=== PATIENT | male | born 1955 | race Caucasian/White ===

== ENCOUNTER 2023-03-30 14:15 | Emergency (ER) | payer MEDICARE, SELFPAY ==
[2023-03-30 14:37] VITALS: BP 135/77
--- NOTE | 2023-03-30 15:34 | ED.GENMED ---
History of Present Illness
General
Chief Complaint: Musculo-Skeletal Complaint
Source: patient
Exam Limitations: none
Time Seen by Provider: 03/30/23 15:21
Nursing documentation reviewed up to this point in time: agreed with
Travel History
Have you had any contact with someone who has COVID-19?: No
Do you have any symptoms of coronavirus? Fever > 100 degrees, chills, cough, shortness of breath, sore throat, loss of taste or smell, muscle aches, or headache?: No
History of Present Illness
History of Present Illness:
Patient is a 67-year-old male who complains of right wrist pain. Triage note mentions no injury however patient reports he lifted a very heavy bag yesterday felt discomfort when he was pulling the bag and then woke up with increasing pain and
swelling today. He complains of pain to the right wrist and hand area. He has not take anything for the pain. He does have swelling to the area. He denies any redness, fever , chills. No prior histor of gout. Denies any other areas of joint
swelling.
Past History
Past History
ED Past Medical History: Asthma, HTN and Other (Klinefelter, obesity, leg edema)
ED Past Surgical History: Orthopedic (Right knee surgery) and Other (Spleenectomy, Adrenal gland removed)
Social History
Tobacco: Non-smoker (Unknown)
Alcohol: None (Unknown)
Drug: Narcotics
Personal: Single
Living: homeless
Review of Systems
Review of Systems
Allergies reviewed?: Yes
All Other Systems: ROS reviewed and negative except as documented in HPI and ROS
Constitutional: Reports no symptoms; Denies fever, fatigue or chills
Musculoskeletal: Reports other (right wrist /hand pain )
Skin: Reports no symptoms and other (denies redness to the area )
Neurological: Reports no symptoms
Psychiatric: Reports no symptoms
Phy Exam
General Physical Exam
General Presentation: no apparent distress
General age: appears stated age
General Skin: warm and dry
General Habitus: normal
General Mental: alert
General Hydration: appears well hydrated
Neurological Exam
Neurological Exam: alert and oriented x3
Musculoskeletal Exam
Musculoskeletal Exam: other (RUE with strong pulses + swelling to right wrist no erythema to wrist /hand ; tender to palpation throughout and + pain with movement of wrist )
Skin Exam
Skin Exam: normal color and warm/dry
Psychiatric Exam
Psychiatric Exam: normal mood/affect
Course
Orders/Labs/Results
Orders:
Orders
03/30/23 14:43
Wrist, Right 3 Views [CR Wrist - Right Min 3 Views] Urgent
Comment:
Reason For Exam: pain w/o injury
03/30/23 15:35
Acetaminophen [Tylenol] 1,000 mg PO NOW STA
03/30/23 15:39
Prednisone [Deltasone] 50 mg PO NOW STA
Vital Signs
Initial and Last Documented VS:
Initial Vital Signs
Temp Pulse Resp BP Pulse Ox
98.6 F 66 20 135/77 97
03/30/23 14:37 03/30/23 14:37 03/30/23 14:37 03/30/23 14:37 03/30/23 14:37
Last Documented Vital Signs
Temp Pulse Resp BP Pulse Ox
98.6 F 66 20 135/77 97
03/30/23 14:37 03/30/23 14:37 03/30/23 14:37 03/30/23 14:37 03/30/23 14:37
MDM/Problems Addressed
Differential Diagnosis Includes:
Not limited to wrist sprain strain fracture, inflammatory cause less likely gout less likely septic joint
MDM/Problems Addressed:
Patient complains of right wrist pain after lifting something heavy. He has swelling on exam without any evidence of infection. He denies any history of gout. He denies any recent fever or chills. There is no redness on exam. No acute findings
on x-ray. Steroid was given here in the ER along with Tylenol. Will DC with short course of steroids with Tylenol with Velcro splint for support. Will DC with outpatient Ortho follow-up. Patient was however recommended to come back if any
worsening of symptoms.
*Critical Care Note
Total Time (30-74mins, 75-104mins- exclusive of procedures): Not Applicable
ED Attending Note
-
Portions of this chart may have been created with voice recognition software.� Occasional wrong word or��sound alike� substitutions may have occurred due to the inherent limitations of voice recognition software.
Discharge Plan
Departure
Patient Disposition: Home (Routine Discharge)
Date of Disposition: 03/30/23
Time of Disposition: 16:28
Patient with high blood pressure during this ER visit?: Yes
Covid-19: Not Applicable
Discharge Problem:
Acute wrist pain
Prescriptions:
New
prednisone 50 mg tablet
50 mg PO DAILY Qty: 4 0RF
No Action
mometasone 50 mcg/actuation spray,non-aerosol
2 spray intranasal BID PRN (Reason: allergy symptoms) Qty: 17 0RF
diphenhydramine HCl [Benadryl Allergy] 25 mg Tablet
25 mg PO HS
albuterol sulfate 90 mcg/actuation HFA aerosol inhaler
2 puff inhalation R Q4HPRN PRN (Reason: shortness of breath or wheezing)
montelukast 10 mg tablet
10 mg PO DAILY
isosorbide mononitrate 30 mg Tablet Extended Release 24 Hr
30 mg PO DAILY 30 Days Qty: 30 0RF
aspirin 81 mg Tablet,Delayed Release (Dr/Ec)
81 mg PO DAILY 30 Days Qty: 30 0RF
pantoprazole 40 mg Tablet,Delayed Release (Dr/Ec)
40 mg PO DAILY 30 Days Qty: 30 0RF
rosuvastatin 10 mg Tablet
10 mg PO QPM 30 Days Qty: 30 0RF
furosemide 40 mg Tablet
40 mg PO DAILY PRN (Reason: Weight gain) Qty: 60 0RF
Rx Instructions:
for weight gain
diltiazem HCl 240 mg Capsule,Extended Release 24hr
240 mg PO DAILY Qty: 0 0RF
melatonin 5 mg Tablet
5 mg PO HSPRN PRN (Reason: insomnia) Qty: 0 0RF
acetaminophen [Acetaminophen Extra Strength] 500 mg tablet
1,000 mg PO QID PRN (Reason: pain) Qty: 60 0RF
ibuprofen 800 mg tablet
800 mg PO Q8H PRN (Reason: right foot pain) Qty: 30 0RF
polyethylene glycol 3350 [Miralax] 17 gram powder in packet
17 g PO BID Qty: 30 0RF
dextroamphetamine-amphetamine 15 MG tablet
15 mg PO TID PRN (Reason: ADHD) Qty: 0 0RF
Patient Comments:
12/23/2022: last filled 12/17/22, 90 tabs for 30 days from [id number]
Referrals:
Nando Agustin DO [Family Provider] -
Steve Roper DO [Active] -
Activity Restrictions/Additional Instructions:
You were seen here today for right wrist pain. Ice the affected area for the next 24 hours 20 minutes at a time several times a day take Tylenol every 4-6 hours. A prescription for steroids was sent to your pharmacy to take daily for the next 4
days. You were given the first dose of steroids here in the ER. Follow-up with orthopedics in the next several days for reevaluation of symptoms. Return if any worsening of symptoms of increased pain swelling redness fever chills
Interventions
Interventions:
ED-Musculoskeletal Assessment Last Done: 03/30/23 15:44
[2023-03-30] MEDS: TYLENOL 1000 MG PO (15:43)
[2023-03-30] MEDS: DELTASONE 50 MG PO (15:43)
[2023-03-30 16:41] VITALS: BP 159/87
== END 2023-03-30 17:02 | disposition home or self-care (01) ==
LOC: EMR 14:15
PROVIDERS: EMERGENCY PHYSICIAN Student in an Organized Health Care Education/Training Program; FAMILY PHYSICIAN Family Medicine
DX: M25.532 Pain in left wrist (principal); J45.909 Unspecified asthma, uncomplicated; I10 Essential (primary) hypertension; E66.9 Obesity, unspecified
CPT/HCPCS: 99283; 73110

== ENCOUNTER 2023-04-10 13:12 | Observation (INO) | payer MEDICARE, SELFPAY ==
[2023-04-10 08:08] VITALS: BP 189/88
--- NOTE | 2023-04-10 08:30 | ED.GENMED ---
History of Present Illness
General
Chief Complaint: Breathing Problem
Source: patient
Exam Limitations: none
Time Seen by Provider: 04/10/23 08:28
Nursing documentation reviewed up to this point in time: agreed with
Travel History
Have you had any contact with someone who has COVID-19?: No
Do you have any symptoms of coronavirus? Fever > 100 degrees, chills, cough, shortness of breath, sore throat, loss of taste or smell, muscle aches, or headache?: No
History of Present Illness
History of Present Illness:
Patient with history of hypertension and congestive heart failure on Lasix 60 mg daily, presents to ED secondary to worsening shortness of breath with exertion over the past 2 weeks. Denies nausea or vomiting. Denies dizziness. Denies fever or
chills. Denies coughing. Denies recent illness. Denies recent change in medications or diet. Patient does not report increased leg swelling. Patient unsure of his weight status recently. Patient does also endorse mild stabbing chest pain when
he does feel short of breath. However, when he is does stop walking, he does feel gradually improved. Unfortunately, patient states that he has had number of similar symptoms in the past which required hospitalization and evaluation. Patient
denies missing any of his medications.
Past History
Past History
ED Past Medical History: Asthma, HTN and Other (Klinefelter, obesity, leg edema)
ED Past Surgical History: Orthopedic (Right knee surgery) and Other (Spleenectomy, Adrenal gland removed)
Social History
Tobacco: Non-smoker (Unknown)
Alcohol: None (Unknown)
Drug: Narcotics
Personal: Single
Living: homeless
Review of Systems
Review of Systems
Allergies reviewed?: Yes
All Other Systems: ROS reviewed and negative except as documented in HPI and ROS
Constitutional: Reports no symptoms
EENT: Reports no symptoms
Respiratory: Reports trouble breathing; Denies cough
Cardiac: Reports chest pain
ABD/GI: Reports no symptoms
: Reports no symptoms
Musculoskeletal: Reports edema
Skin: Reports no symptoms
Neurological: Reports no symptoms; Denies dizzy
Phy Exam
Physical Exam
Physical Exam:
Physical Exam
General: no apparent distress, not acutely ill. afebrile
Head: nc/at. eomi
Neck: supple. no meningeal signs. normal posterior pharynx
Heart: s1/s2 regular rate and rhythm, no murmur. equal radial pulses.
Lungs: no acute respiratory distress. clear bilaterally
Abdomen: normal bowel sounds. not tender.
Neuro: alert and oriented. no focal neurological deficits
Skin: no rash
Psychiatric: well kept. interactive and cooperative
Extremities: b/l LE edema. no calf tenderness.
Scores
Heart Failure Risk
Heart Failure Risk Score: Yes
History of Stroke or TIA: No
History of intubation for respiratory distress: No
Heart rate on ED arrival >/= 110: No
SaO2 <90% on arrival on room air: No
HR >/=110 during 3min walk test (or too ill to perform test): No
ECG has acute ischemic changes: No
Urea >/=12mmol/L (BUN 33.6mg/dL): No
Serum CO2>/=35mmol/L: No
Troponin I or T elevated to NC Level (0.4mg/dL): No
NT-proBNP >/=5,000ng/L (5,000pg/ml): No
HF Risk Score: 0
Admission Status: LOW RISK 2.8% Consider discharge to home with f/u visit to PCP/Block Breaker
Course
Orders/Labs/Results
Orders:
Orders
04/10/23 Breakfast
Cholesterol Lowering
At Your Request: Full Participation
Does patient need a safe tray?: No
Cholesterol Lowering: Sodium, 2 Gram
04/10/23 08:11
Electrocardiogram (*1) Urgent
Reason for Study: Other
Other Reason for Exam: Respiratory Distress
EKG- Treatment ONCE
04/10/23 08:23
CR Chest - 2 Views Urgent
Comment:
Reason For Exam: SOB
04/10/23 08:42
Complete Blood Count/With Diff Urgent
Comprehensive Metabolic Panel Urgent
Glycohemoglobin (HgbA1c) Urgent
NT-proBNP Urgent
Prothrombin Time Urgent
Troponin I Urgent
04/10/23 09:16
Case Management Consult ONCE
Case Management Consult: Other
04/10/23 10:02
Furosemide [Lasix] 40 mg IV NOW STA
04/10/23 10:08
Ipratropium/Albuterol Sulfate [Duoneb] 3 ml .ROUTE .STK-MED ONE
04/10/23 10:09
Ipratropium/Albuterol Sulfate [Duoneb] 3 ml INH R NOW ONE
04/10/23 11:33
Dexamethasone Sod Phosphate [Decadron] 6 mg IV NOW STA
04/10/23 12:40
COVID-19 Antigen Stat
Source: Nasal Swab
04/10/23 12:41
Admit/Transfer Patient As Directed
Co-Sign Provider:
Level of Care: Observation services
Assign to:: Telemetry
Physician / Group: jack trujillo
Diagnosis: chest pain
Reason for Telemetry: Chest Pain syndromes
Date to Stop Telemetry: 04/12/23
Time to Stop Telemetry: 11:00
04/10/23 12:42
Code Status As Directed
Resuscitation Status: Full Code
04/10/23 12:[address] [CT Chest Pe Study] Urgent
Comment:
Reason For Exam: sob,chest pain
04/10/23 14:09
Betamethasone Dipropionate [Diprosone 0.05% Lotion] 0 applic TOPICAL BIDPRN PRN
Diphenhydramine [Benadryl] 25 mg PO HSPRN PRN
Ipratropium/Albuterol Sulfate [Duoneb] 3 ml INH R Q4HPRN PRN
mometasone 0 spray NASAL BIDPRN PRN
04/10/23 14:09
Echo 2D MMode Color/Doppler Routine
Reason for Study: chest pain
CARDIOLOGY CONSULT Routine
Consulting Provider: Eleazar Briggs
Was physician already notified: Yes
Activity As Directed
Activity Level: As Tolerated
INT (Intravenous Needle Therapy) As Directed
Comment: maintain peripheral IV access
Intake/ Output As Directed
Frequency: Per unit guidelines
Vital Signs As Directed
Frequency: q4h
Weight As Directed
Frequency: Daily
Pt Eval And Treat Routine
Activity Level: As Tolerated
DX Deep Vein Thrombosis Video Routine
04/10/23 14:15
Electrocardiogram (*1) Q6H
Reason for Study: Chest Pain
Comment: at admission and Q3H for total of 3, to be done with each troponin
04/10/23 14:34
Troponin I Q3H
Comment: at admit & Q3H for 3 total including ED draws, obtain ECG with each level
04/10/23 16:59
Troponin I Q3H
Comment: at admit & Q3H for 3 total including ED draws, obtain ECG with each level
04/10/23 18:00
Enoxaparin Sodium [Lovenox] 40 mg SC QPM
04/10/23 20:00
Polyethylene Glycol Powder [Miralax] 17 grams PO BID
04/10/23 20:09
Troponin I Q3H
Comment: at admit & Q3H for 3 total including ED draws, obtain ECG with each level
04/11/23 06:00
Basic Metabolic Panel IN AM
Cardiovascular Evaluation IN AM
Complete Blood Count/No Diff IN AM
04/11/23 08:00
Amphet Asp/Amphet/D-Amphet [Adderall] 15 mg PO TID@0800,1300,1800
Aspirin Low Dose EC [Aspir Low (Enteric Coated)] 81 mg PO DAILY
Diltiazem Extended Release [Cardizem Cd] 240 mg PO DAILY
ISOSORBIDE MONOnitrate ER [Imdur (Extended Release)] 30 mg PO DAILY
04/11/23 18:00
Montelukast Sodium [Singulair] 10 mg PO QPM
04/12/23 11:00
DC Protocol for Telemetry ONCE
Abnormal Lab Results
04/10/23
08:42
RBC 4.26 L 10^6/uL
(4.70-6.10)
MCV 94.4 H fL
(80.0-94.0)
MCH 31.5 H pg
(27.0-31.0)
Plt Count 90 L 10^3/uL
(130-400)
MPV 11.9 H fL
(7.4-10.4)
Absolute Monos (auto) 1.4 H 10^3/uL
(0.1-0.6)
Lymphocytes % 19.8 L %
(20.5-51.1)
Monocytes % 17.7 H %
(1.7-9.3)
Carbon Dioxide 32 H mmol/L
(22-30)
Total Protein 5.8 L g/dl
(6.3-8.2)
Albumin 3.1 L g/dl
(3.5-5.0)
04/10/23 08:42
04/10/23 08:42
Vital Signs
Initial and Last Documented VS:
Initial Vital Signs
Temp Pulse Resp BP Pulse Ox
97.8 F 68 18 189/88 97
02/07/24 08:08 04/10/23 08:08 04/10/23 08:08 04/10/23 08:08 04/10/23 08:08
Last Documented Vital Signs
Temp Pulse Resp BP Pulse Ox
98.4 F 71 18 170/81 97
04/10/23 14:27 04/10/23 14:27 04/10/23 14:27 04/10/23 14:27 04/10/23 14:27
MDM/Problems Addressed
MDM/Problems Addressed:
During short ambulation in ED, patient noted to become dyspneic with desaturation with pulse ox 87% on room air. Patient brought back to stretcher, with gradual improvement in oxygen level. Patient likely with mild fluid overload with exacerbation
of underlying COPD, contributing to his presenting symptoms. Patient's dry weight today appears to be significant increased from his previous evaluation in January 2023. Patient will be admitted for further evaluation and treatment.
*EKG
Interpreted by ED Provider?: Yes
EKG Intrepretation Date: 04/10/23
Heart Rate: 62
Rate: normal
Rhythm: sinus
[place]: normal axis
Interval: normal interval
*Critical Care Note
Total Time (30-74mins, 75-104mins- exclusive of procedures): Not Applicable
ED Attending Note
-
Portions of this chart may have been created with voice recognition software.� Occasional wrong word or��sound alike� substitutions may have occurred due to the inherent limitations of voice recognition software.
Discharge Plan
Departure
Patient Disposition: Admit
Date of Disposition: 04/10/23
Time of Disposition: 11:34
Presentation/result/management discussed w/ accepting MD/DO: Hospitalist
Condition: Fair
Discharge Problem:
Hypoxia, Fluid overload, COPD (chronic obstructive pulmonary disease)
Interventions
Interventions:
*Risk Screen - Suicide Last Done: 04/10/23 08:08
*General Assessment Last Done: 04/10/23 08:42
*Neglect/Abuse Screening Last Done: 04/10/23 08:08
ED- Fall Risk Assessment Last Done: 04/10/23 13:58
*ED COVID-19 Vaccine History Last Done: 04/10/23 08:08
*Nursing Disposition Last Done: 04/10/23 13:58
ED- Cardiac Assessment Last Done: 04/10/23 08:31
ED- Pulmonary Assessment Last Done: 04/10/23 08:31
Discharge Date and Time
Discharge Date/Time: 04/10/23 13:59
[2023-04-10 08:37] VITALS: BMI 37.7
[2023-04-10 08:59] LABS: % Basophils 0.7 % (0-2); % Eosinophils 4.6 % (0-6); % Immature Granulocytes 0.3 % (0-0.5); % Lymphocytes 19.8 % (20.5-51.1); % Monocytes 17.7 % (1.7-9.3); % Neutrophils 56.9 % (42.2-75.2); Absolute Basophils 0.1 10^3/uL (0-0.2); Absolute Eosinophils 0.4 10^3/uL (0-0.7); Absolute Lymphocytes 1.5 10^3/uL (1.2-3.4); Absolute Monocytes 1.4 10^3/uL (0.1-0.6); Absolute Neutrophils 4.4 10^3/uL (1.4-6.5); Hematocrit 40.2 % (39.0-52.0); Hemoglobin 13.4 g/dL (13.0-18.0); Mean Corp Hgb Conc. 33.3 g/dL (33.0-37.0); Mean Corpuscular Hgb 31.5 pg (27.0-31.0); Mean Corpuscular Volume 94.4 fL (80.0-94.0); Nucleated Red Blood Cells % 0 % (-); Red Blood Cell Count 4.26 10^6/uL (4.70-6.10); Red Cell Dist. Width 13.9 % (11.5-14.5); White Blood Cell Count 7.6 10^3/uL (4.8-10.8)
[2023-04-10 09:12] LABS: INR 0.99; PT 13.1 Sec (11.4-14.6)
[2023-04-10 09:14] LABS: ALT (SGPT) 19 U/L (0-50); AST (SGOT) 26 U/L (17-59); Albumin 3.1 g/dl (3.5-5.0); Alkaline Phosphatase 54 U/L (38-126); Blood Urea Nitrogen 20 mg/dl (9-20); Calcium 8.8 mg/dl (8.4-10.2); Carbon Dioxide 32 mmol/L (22-30); Chloride 102 mmol/L (98-107); Estimated Creatinine Clearance > 125 ml/min; Glucose 98 mg/dl (70-99); Potassium 4.1 mmol/L (3.5-5.1); Sodium 139 mmol/L (135-145); Total Bilirubin 0.8 mg/dl (0.2-1.3); Total Protein 5.8 g/dl (6.3-8.2); eGFR > 60.00
[2023-04-10 09:22] LABS: Mean Platelet Volume 11.9 fL (7.4-10.4); Platelet Count 90 10^3/uL (130-400)
[2023-04-10 09:25] LABS: NT-proBNP 272 pg/ml; Troponin I 0.026 ng/ml
[2023-04-10 10:09] VITALS: BP 185/75
[2023-04-10] MEDS: LASIX 40 MG IV (10:10)
[2023-04-10] MEDS: DUONEB 3 ML INH (10:10)
--- NOTE | 2023-04-10 11:31 | CM ---
CM initially consulted in ED for homeless resources
Later advised for plan for admission
CM met with pt bedside
Pt is homeless and has been staying in [facility]
He is well versed in homeless resources in the community
Homeless resources provided to him
Pt is independent with his ADLs
Denies use of DMEs
Pt previously sleeping in his car as well
PCP- Nando Agustin
Rx- [facility]
Pt has SS income stream and is on medical leave from work with [employer]
Multiple calls with resources in the area
Pt working with [address] monitor worker for [employer] ([phone])
Call with [employer] [phone]- no longer cover ST hotel stays
May consider with referral from hospital though
[2023-04-10] MEDS: DECADRON 6 MG IV (11:45)
--- NOTE | 2023-04-10 12:06 | HPS.HSE ---
Addendum entered and electronically signed by Lowell Mackey MD 04/10/23 13:41:
I saw and examined the patient.
The [employer] or PA's note was reviewed and I agree with the note.
Comment: 67-year-old male who presents with chief complaints of chest pain and dyspnea on exertion.
185/75, 61, 22, 97.8 F, 97% RA
NAD, awake and alert, NCAT
RRR, normal S1/S2, 3.6 SAMREEN
CTAB
CN2-12 intact
trace ankle edema
CXR: No active cardiopulmonary disease. Suboptimal inspiration.
proBNP 272
Trop 0.026
Cr 0.7
SOB and CP:
-atypical presentation for acute coronary syndrome, trend troponins, consult cardiology
-Trend troponins and check echocardiogram
-With sharp, left-sided chest pain, check CTA chest
Original Note:
Family Physician
-
Family Physician: Nando Agustin
Chief Complaint
-
sob,left sided chest pain
History of Present Illness
67-year-old with past medical history for asthma, hypertension, COPD, congestive heart failure presented to us with short of breath worse with exertion associated with left-sided chest pain for 1 week. Chest pain is nonradiating but stated worse
with exertion. Chest pain is not reproducible. Patient takes Lasix 40 mg as needed. He took yesterday for bilateral lower extremities edema. Patient denied any cough, runny nose, congestion. Patient denied any fever, chills. Patient denied any
headache, dizziness, syncopal episode. Patient denied any abdominal pain, nausea, vomiting, diarrhea. Patient denied dysuria hematuria. Patient unsure of his weight status recently.
Chest x-ray with no acute disease. Patient received dexamethasone, neb treatment, Lasix in ER. Admitting for further management.
Medical History
Past Medical History
Past Medical History: Reports Other
Additional Past Medical History:
sthma
Hypertension
Klinefelter Syndrome
Obesity
Aortic stenosis
BEA not on PAP
Chronic HFpEF
COPD
Coronary Vasospasm
Non-Obstructive Coronary Artery Disease
Past Surgical History: Reports Other
Additional Past Surgical History:
Splenectomy
Left Adrenalectomy
Right Knee Arthroscopy
Genital Surgery
Social History
Tobacco: Non-smoker
Alcohol: None
Drug: None
Personal: Single
Living: Homeless
Family History
Family History: Not pertinent
Allergies / Home Medications
Allergies reflects when Allergies were last updated in [employer].
Home Medications with original date entered in [employer]
Allergy/Medication List:
Allergies
Allergy/AdvReac Type Severity Reaction Status Date / Time
Iodinated Contrast Media Allergy IV Verified 03/30/23 14:37
DYE-HIVES
Home Medications
mometasone 50 mcg/actuation nasal spray 2 spray intranasal BID PRN allergy symptoms #17 grams 07/16/22
albuterol sulfate 90 mcg/actuation aerosol inhaler 2 puff inhalation R Q4HPRN PRN shortness of breath or wheezing 12/14/22
diphenhydramine HCl 25 mg tablet (Benadryl Allergy) 25 mg PO HS PRN Sleep 12/14/22
montelukast 10 mg tablet 10 mg PO DAILY Allergies 12/23/22
aspirin 81 mg tablet,delayed release 81 mg PO DAILY 30 days #30 tabs 12/28/22
isosorbide mononitrate 30 mg tablet,extended release 24 hr 30 mg PO DAILY 30 days #30 tabs 12/28/22
diltiazem HCl 240 mg capsule,extended release 24 hr 240 mg PO DAILY #0 caps 01/11/23
polyethylene glycol 3350 17 gram oral powder packet (Miralax) 17 g PO BID #30 ea 01/11/23
acetaminophen 500 mg tablet (Acetaminophen Extra Strength) 1,000 mg PO HSPRN PRN mild pain 04/10/23
betamethasone dipropionate 0.05 % lotion 1 applic topical BID PRN apply to B/L legs 04/10/23
dextroamphetamine-amphetamine 15 mg tablet 15 mg PO TID ADHD 04/10/23
furosemide 40 mg tablet 40 mg PO DAILY PRN weight gain (3lbs)/edema 04/10/23
Review of Systems
-
Constitutional: Reports No Symptoms
EENT: Reports No Symptoms
Respiratory: Reports Trouble Breathing
Cardiac: Reports Chest Pain
Abdomen/GI: Reports No Symptoms
: Reports No Symptoms
Musculoskeletal: Reports Edema (Bilateral lower extremity edema)
Skin: Reports No Symptoms
Neurological: Reports No Symptoms
Endocrine: Reports No Symptoms
Hematologic/Lymphatic: Reports No Symptoms
Psych: Reports No Symptoms
Physical Exam
Vital Signs
Vital Signs
Temp Pulse Resp BP Pulse Ox
97.8 F 61 22 185/75 97
04/10/23 08:08 04/10/23 11:00 04/10/23 11:00 04/10/23 10:09 04/10/23 11:00
Physical Exam
General: Well Developed, Well Nourished and No Apparent Distress
HEENT: NormoCephalic, Moist mucous membranes and Atraumatic
Respiratory: Clear
Cardiac: S1/S2 and Regular Rhythm; No Murmur or Rub
GI: Soft, Non Tender, Non Distended and Normal Bowel Sounds; No Organomegaly
Rectal: Deferred by Provider
Musculoskeletal: No Clubbing, No Cyanosis and No Edema
Skin: No Rash
Neuro: AO x 3 and Nonfocal/grossly intact
Psych: Calm
Laboratory Results
-
04/10/23 08:42
04/10/23 08:42
Laboratory Results
PT 13.1 Sec (11.4-14.6) 04/10/23 08:42
INR 0.99 04/10/23 08:42
Total Bilirubin 0.8 mg/dl (0.2-1.3) 04/10/23 08:42
AST 26 U/L (17-59) 04/10/23 08:42
ALT 19 U/L (0-50) 04/10/23 08:42
Alkaline Phosphatase 54 U/L (38-126) 04/10/23 08:42
Troponin I 0.026 ng/ml 04/10/23 08:42
Data Reviewed
-
Diagnostic Radiology: Report Reviewed by me
Lab Data: Labs Reviewed by me
Impression/Plan
-
#sob associated with chest pain unclear cause/hxt of non obstructive CAD
-97 percentage on room air
-BNP 272
-Chest x-ray with no acute active cardiopulmonary disease, suboptimal inspiration
-Continue supplemental oxygen to keep sat greater than 92
-Wean as tolerated
-Aspirin continued
-nebs prn for sob/wheezing
-trend trop
-cath 12/26/22: Right dominant circulation with a borderline nonocclusive 40-50% lesion in the mid LAD (nonocclusive but borderline disease (IFR = 0.91) and coronary arterial spasm, consistent with Prinzmetal's angina. Very mild aortic valve
stenosis.
-obtain CT PE, ECHO
-received a dose of Lasix in ER
-hold Lasix
# Thrombocytopenia unclear cause
-Platelets 90
-ctm
# History of congestive heart failure
-Strict BOB
-Daily weight
-Lasix held
# Essential hypertension
-Blood pressure elevated in ER
-Diltiazem continued
-isosorbide continued
#COPD without Acute Exacerbation
�- Stable.� Continue inhaled medications.
Obesity due to excess calories
�- Affects all aspects of care.
�- Encourage healthy diet and activity as tolerated for goal of weight loss.
#Homelessness
�- Affects all aspects of care.� Significantly limits patient's ability to adequately care for himself as an outpatient.
�- Case Management evaluation for any available resources / interventions
#DVT Prophylaxis:� Lovenox
#Code Status:� Full
[2023-04-10 13:05] LABS: COVID-19 Antigen Negative (Negative)
[2023-04-10] MEDS: BENADRYL 50 MG IV (13:43)
--- NOTE | 2023-04-10 14:01 | W.PN.UPDATE ---
Update Note
Progress Note Update
patient received 50mg of iv hydrocortisone and 50mg iv Benadryl. patient got 6mg iv Decadron which is equivalent to 160mg hydrocortisone checked with pharmacy as well.
--- NOTE | 2023-04-10 14:04 | CON.CAR ---
Addendum entered and electronically signed by Eleazar Briggs MD 04/10/23 17:45:
67 yo male with mild to moderate , non-obstructive CAD, chronic HFPEF, COPD. Admitted with ARMENDARIZ. Exam with RRR, III/ systolic murmur, trivial edema. Cr 0.7.
Suspect presentation mostly due to COPD--he received nebs, steroids.
Check echo.
BP is high. We increased his imdur. May need to add lisinopril.
Original Note:
Consultation
Consultation Request
Date/Time Consultation Requested: 04/10/23 1325
Date/Time Consultation Performed: 04/10/23 1400
Requesting Provider: Shayla Carrillo
Performing Provider: Raquel ARTHUR for Dr. Briggs
Reason for Consultation: chest pain, SOB
Medical History
-
Chief Complaint: ARMENDARIZ, chest discomfort
History of Present Illness:
67 y/o male with asthma, aortic stenosis (moderate by echo, mild by cath), HFpEF (on PRN lasix), hypertension, dyslipidemia, preDM, and restrictive lung disease who is here for evaluation of ARMENDARIZ x 1-2 weeks. Also notes chest discomfort with
exertion, especially when carrying his 60 lb bag. It feels similar to last time he came to the hospital. At that time, cath showed borderline non-occlusive 40-50% mid LAD lesion and coronary vasospasm (details below). He is now on isosorbide and
diltiazem and reports compliance with medicines.
Past Medical History
Past Medical History: HTN, Hypercholesterolemia and Other (Asthma)
Social History
Tobacco: Non-Smoker
Alcohol: None (doesn't usual currently drink ETOH per patient, but did have a seltzer yesterday)
Drug: None (does have a history of drug OD with fentanyl)
Living: Homeless
Family History
Family History: Reviewed & Not Pertinent
Allergies / Home Medications
Allergy/AdvReac Type Severity Reaction Status Date / Time
Iodinated Contrast Media Allergy IV Verified 03/30/23 14:37
DYE-HIVES
Medication Instructions Recorded Confirmed Type
mometasone 50 mcg/actuation nasal 2 spray intranasal BID PRN allergy 07/16/22 04/10/23 Rx
spray symptoms #17 grams
albuterol sulfate 90 mcg/actuation 2 puff inhalation R Q4HPRN PRN 12/14/22 04/10/23 History
aerosol inhaler shortness of breath or wheezing
diphenhydramine HCl 25 mg tablet 25 mg PO HS PRN Sleep 12/14/22 04/10/23 History
(Benadryl Allergy)
montelukast 10 mg tablet 10 mg PO DAILY Allergies 12/23/22 04/10/23 History
aspirin 81 mg tablet,delayed 81 mg PO DAILY 30 days #30 tabs 12/28/22 04/10/23 Rx
release
isosorbide mononitrate 30 mg 30 mg PO DAILY 30 days #30 tabs 12/28/22 04/10/23 Rx
tablet,extended release 24 hr
diltiazem HCl 240 mg 240 mg PO DAILY #0 caps 01/11/23 04/10/23 Rx
capsule,extended release 24 hr
polyethylene glycol 3350 17 gram 17 g PO BID #30 ea 01/11/23 04/10/23 Rx
oral powder packet (Miralax)
acetaminophen 500 mg tablet 1,000 mg PO HSPRN PRN mild pain 04/10/23 04/10/23 History
(Acetaminophen Extra Strength)
betamethasone dipropionate 0.05 % 1 applic topical BID PRN apply to 04/10/23 04/10/23 History
lotion B/L legs
dextroamphetamine-amphetamine 15 15 mg PO TID ADHD 04/10/23 04/10/23 History
mg tablet
furosemide 40 mg tablet 40 mg PO DAILY PRN weight gain 04/10/23 04/10/23 History
(3lbs)/edema
Review of Systems
-
History Source: Patient
All other systems: Negative unless noted
Respiratory: Trouble Breathing
Cardiac: Chest Pain
Physical Exam
Vital Signs
Temp Pulse Resp BP Pulse Ox
97.8 F 59 22 185/75 98
04/10/23 08:08 04/10/23 13:30 04/10/23 13:30 04/10/23 10:09 04/10/23 11:15
Lab Results
04/10/23 08:42
04/10/23 08:42
Troponin I 0.026 ng/ml 04/10/23 08:42
Kpg-F-Vdwnxyubhga Pept 272 pg/ml 04/10/23 08:42
Physical Exam
General: Well Developed, Well Nourished and No Apparent Distress
HEENT: Normocephalic and Anicteric
Respiratory: Clear and Non Labored Respirations
Cardiac: Regular Rhythm and Murmur (II/ systolic)
Breast: Deferred by me
GI: Soft, Non Distended and Normal Bowel Sounds
Musculoskeletal: No Edema
Skin: Warm and Dry
Neuro: AO x 3
Psych: Calm
Impression / Plan
-
ARMENDARIZ:
-patient does not appear obviously volume overloaded to assessment, though did receive a dose of lasix in ER. BNP is 272, no edema. Doesn't monitor weights. Denies orthopnea.
-hx asthma, restrictive lung disease (severe per OP pulmonary notes)
-CT scan is pending
Chest discomfort:
-trops and EKG's unremarkable, trend
-recent cath as below
-continue ASA, statin. Continue diltiazem, increase Imdur and monitor.
CAD:
-cath 12/26/22: Right dominant circulation with a borderline nonocclusive 40-50% lesion in the mid LAD (nonocclusive but borderline disease (IFR = 0.91) and coronary arterial spasm, consistent with Prinzmetal's angina. Very mild aortic valve
stenosis.
-continue ASA, statin. Med adjustments as above.
HFpEF:
-stable, chronic
-on PRN lasix
HTN:
-elevated
-monitor with med adjustments
Data Reviewed
-
EKG: Tracing Personally Visualized and interpreted (NSR stable from previous)
Radiology: Report Reviewed by me (CXR: No active cardiopulmonary disease. Suboptimal inspiration)
Medical Tests (Nuc Med, Echo etc): Report Reviewed by me (Echo 07/13/22: Normal left ventricular chamber size with mild concentric hypertrophy and hyperdynamic systolic function. Left ventricular ejection fraction is 75+%. Stage I diastolic
dysfunction suggestive of abnormal relaxation. Normal right ventricular size and function. Normal atria. Calcifi) and Other (cardiac cath 12/26/22: Right dominant circulation with a borderline nonocclusive 40-50% lesion in the mid LAD and
coronary arterial spasm, consistent with Prinzmetal's angina. 2. Very mild aortic valve stenosis by invasive gradients (13.5 mmHg). 3. Preserved cardiac function (cardiac index = 2.32))
Labs: Labs Reviewed by me
[2023-04-10 14:27] VITALS: BP 170/81
[2023-04-10 14:28] VITALS: BMI 36.1
[2023-04-10 14:58] VITALS: BMI 36.1
[2023-04-10 15:07] LABS: Troponin I 0.019 ng/ml
[2023-04-10] MEDS: IMDUR (EXTENDED RELEASE) 30 MG PO (15:53)
[2023-04-10] MEDS: SOLU-CORTEF 50 MG IV (15:53)
[2023-04-10 17:30] LABS: Troponin I 0.019 ng/ml
[2023-04-10] MEDS: LOVENOX 40 MG SC (18:10)
[2023-04-10 19:48] VITALS: BP 165/89
[2023-04-10] MEDS: MIRALAX 17 GRAMS PO (19:56)
[2023-04-10] MEDS: TYLENOL 1000 MG PO (22:04)
[2023-04-10] MEDS: BENADRYL 25 MG PO (22:04)
--- NOTE | 2023-04-10 22:42 | PTCARENOTE ---
Pt reports cramping pain in right leg and tingling in right hand. House HEAT ENGINEERING TEACHER Clary Nguyen notified, order for 1x Tylenol 1000mg placed and provided to pt, magnesium added to morning labs. Will continue to monitor.
[2023-04-10 23:28] VITALS: BP 163/85
[2023-04-11] VITALS (7 sets, daily range): BP systolic 156–192; BP diastolic 63–98; BMI 35.5
[2023-04-11] MEDS: TYLENOL 650 MG PO (06:02)
--- NOTE | 2023-04-11 06:34 | PTCARENOTE ---
Pt reports an 8/10 headache in the front of his head. Pt states that 'this happened the other night' and reports that his vision is 'a little blurry'. Pt reports that he has experienced blurred vision with a headache each night for the past three
nights. House PURCHASING MANAGER Clary Nguyen notified of headache pain and 1x Tylenol 650mg provided to pt. Will continue to monitor and pass along to day shift RN.
[2023-04-11 07:31] LABS: Hematocrit 40.9 % (39.0-52.0); Hemoglobin 13.7 g/dL (13.0-18.0); Mean Corp Hgb Conc. 33.5 g/dL (33.0-37.0); Mean Corpuscular Hgb 30.9 pg (27.0-31.0); Mean Corpuscular Volume 92.3 fL (80.0-94.0); Mean Platelet Volume 12.4 fL (7.4-10.4); Platelet Count 91 10^3/uL (130-400); Red Blood Cell Count 4.43 10^6/uL (4.70-6.10); Red Cell Dist. Width 13.3 % (11.5-14.5); White Blood Cell Count 7.3 10^3/uL (4.8-10.8)
[2023-04-11 07:57] LABS: Blood Urea Nitrogen 22 mg/dl (9-20); Carbon Dioxide 32 mmol/L (22-30); Chloride 99 mmol/L (98-107); Estimated Creatinine Clearance > 125 ml/min; Glucose 124 mg/dl (70-99); HDL Cholesterol 58 mg/dl; LDL Cholesterol, Calculated 76 mg/dl; Magnesium 1.9 mg/dl (1.6-2.3); Potassium 3.9 mmol/L (3.5-5.1); Sodium 137 mmol/L (135-145); Total Cholesterol 146 mg/dl (50-199); Triglyceride 63 mg/dl (10-149); Very Low Density Lipoprotein 12 mg/dl (0-30); eGFR > 60.00
[2023-04-11] MEDS: IMDUR (EXTENDED RELEASE) 60 MG PO (08:16)
[2023-04-11] MEDS: MIRALAX 17 GRAMS PO ×2 (08:16→19:40)
[2023-04-11] MEDS: CARDIZEM CD 240 MG PO (08:16)
[2023-04-11] MEDS: ASPIR LOW (ENTERIC COATED) 81 MG PO (08:16)
[2023-04-11] MEDS: ADDERALL 15 MG PO ×3 (08:16→17:09)
--- NOTE | 2023-04-11 08:30 | W.PN.CD ---
Today's Communication / Plan
-
-Continue current doses of Cardizem CD and isosorbide mononitrate.
-Blood pressure remains suboptimally controlled.
-Will add lisinopril 10 mg daily; uptitrate as needed.
Impression / Plan
-
ARMENDARIZ:
-patient does not appear obviously volume overloaded to assessment, though did receive a dose of lasix in ER. BNP is 272, no edema. Doesn't monitor weights. Denies orthopnea.
-hx asthma, restrictive lung disease (severe per OP pulmonary notes)
-Being treated with steroids; management as per primary team.
Chest discomfort:
-trops and EKG's unremarkable, trend
-recent cath as below
-continue ASA, statin.
-Continue current doses of Cardizem CD and isosorbide mononitrate.
CAD:
-cath 12/26/22: Right dominant circulation with a borderline nonocclusive 40-50% lesion in the mid LAD (nonocclusive but borderline disease (IFR = 0.91) and coronary arterial spasm, consistent with Prinzmetal's angina. Very mild aortic valve
stenosis.
-continue ASA, statin, Cardizem CD.
HFpEF:
-stable, chronic
-on PRN lasix
-Appears to be compensated on examination.
HTN:
-Blood pressure remains suboptimally controlled
-Will add lisinopril 10 mg daily; uptitrate as needed
Physical Exam
Vital Signs/Labs
Vital Signs
Temp Pulse Resp BP Pulse Ox
98.2 F 78 20 171/89 96
04/11/23 03:00 04/11/23 03:00 04/11/23 03:00 04/11/23 03:00 04/11/23 03:00
04/10/23 04/11/23 04/12/23
06:59 06:59 06:59
Actual Weight 122.186 kg
04/11/23 06:17
04/11/23 06:17
PT 13.1 Sec (11.4-14.6) 04/10/23 08:42
INR 0.99 04/10/23 08:42
Magnesium 1.9 mg/dl (1.6-2.3) 04/11/23 06:17
Triglycerides 63 mg/dl (10-149) 04/11/23 06:17
LDL Cholesterol, Calc 76 mg/dl 04/11/23 06:17
VLDL Cholesterol, Calc 12 mg/dl (0-30) 04/11/23 06:17
HDL Cholesterol 58 mg/dl 04/11/23 06:17
04/10/23
08:42
Urd-N-Tlacconqsnr Pept 272
LAB Results
04/10/23 04/10/23 04/10/23
08:42 14:34 16:59
Troponin I 0.026 0.019 D 0.019
Physical Exam
Constitutional: No acute distress and Comfortable
EENT: Anicteric
Cardiovascular: Rhythm & rate is regular, Pedal edema is absent, Systolic murmur present (3/6) and S1S2 is normal
Respiratory: Respiratory effort normal and Lungs clear to auscul.
GI: Soft
Other: Skin (Warm, dry, intact)
Data Reviewed
-
Date of Service: April 11, 2023
EKG: Tracing Personally Visualized and interpreted (Telemetry: Sinus rhythm)
Echo: Tracing Personally Visualized and interpreted (EF 60-65%, mild )
Medical Tests (PFT, Pathology etc): Discussed with Patient
Labs: Labs Reviewed by me
[2023-04-11] MEDS: ZESTRIL 10 MG PO (08:42)
[2023-04-11 09:24] LABS: Glycohemoglobin (HgbA1c) 5.8 % (4.0-5.6)
--- NOTE | 2023-04-11 11:04 | W.PN.HOSP.TC ---
Addendum entered and electronically signed by Lowell Mackey MD 04/11/23 11:48:
Correction: 2/6 systolic ejection murmur
Original Note:
Today's Communication/Plan
-
see bold
Assessment / Plan
Assessment / Plan
Gen: NAD, AAOx3.
Eyes: EOMI, PERRLA, no scleral icterus.
Neck: supple.
CV: RRR, +S1/S2, no m/r/g.
Resp: CTAB, no rales, wheezes, or rhonchi.
Abd: +BS, soft, NT, ND
Skin: No rashes.
Neuro: CN 2-12 intact, non-focal.
Psych: Normal mood and affect.
Cath 12/26/22: Right dominant circulation with a borderline nonocclusive 40-50% lesion in the mid LAD (nonocclusive but borderline disease, IFR = 0.91) and coronary arterial spasm, consistent with Prinzmetal's angina. Very mild aortic valve stenosis.
CTA chest: No acute disease of the chest. No evidence of pulmonary embolus.
Echo: Normal biventricular size and systolic function without regional wall motion
�abnormality. Estimated LVEF 60-65%.
�Moderate concentric left ventricular hypertrophy.
�Mild aortic stenosis. Peak/mean gradients across the aortic valve are 40/22
�mmHg. The aortic valve by the Continuity equation is calculated at 1.8 cm sq
�using an LVOT diameter of 1.9 cm.
�Trace tricuspid regurgitation. Mildly elevated PASP. Estimated pulmonary artery
�pressure of 38 mmHg assuming a right atrial pressure of 3 mmHg
SOB and CP:
-CTA chest without PE or acute disease of the chest
-Trops NEG x 3, ACS ruled out
-doubt acute component of HFpEF with proBNP 272, no pulm edema, and echo without significant change from 12/14/22 (pt does have chronic HFpEF)
-cardiology following, discussed with Dr. Munoz. c/s pulm
Other problems:
Thrombocytopenia: unclear cause, stable, outpt w/u
Essential hypertension: cont Imdur/Cardizem, Lisinopril started
h/o asthma and restrictive lung disease
Obesity due to excess calories: Affects all aspects of care. Encourage weight loss.
Homelessness
FULL/Lovenox
Total time spent on today's encounter was 50 minutes which included time spent in counseling the patient/family regarding diagnosis and treatment plan as listed above, goals of care, and symptom management. Case was discussed with nursing staff,
specialists, and care coordinators/case management. All labs and imaging personally reviewed by me. Remainder the time spent in detailed review of previous records, lab data, imaging, and other medical provider documentation.
Anticipated Discharge: Within 24 hours
Subjective/Interval History
-
Date of Service: April 11, 2023
Still c/o SOB.
Objective Data
-
Labs:
Laboratory Results
04/11/23
06:17
WBC 7.3
Hgb 13.7
Hct 40.9
Plt Count 91 L
Sodium 137
Potassium 3.9
Chloride 99
Carbon Dioxide 32 H
BUN 22 H
Creatinine 0.7
Glucose 124 H
Calcium 9.0
Vital Signs:
Vital Signs
Temp Pulse Resp BP Pulse Ox
98.0 F 64 20 173/77 97
04/11/23 07:30 04/11/23 07:30 04/11/23 07:30 04/11/23 08:42 04/11/23 07:30
I&O
04/10/23 04/11/23 04/12/23
06:59 06:59 06:59
Intake Total 0 / 1920
Output Total 1000 / 1000
Balance 920 / 920
--- NOTE | 2023-04-11 12:10 | CM ---
Addendum entered by Jeanine Villalobos 04/11/23 16:14:
CM received return call from Felton from [facility]. Per Felton, patient has utilized their resources many times in the past without making any changes or progress, per Felton, they will have to decline and are unable to offer the patient any assistance
at this time as he requires more care than they can provide him.
Addendum entered by Jeanine Villalobos 04/11/23 15:34:
CM spoke with Diaz from [facility], was informed that patient is not currently working with him but he has worked with him in the past. CM asked Diaz for any additional resources for CM to provide to patient, Diaz reports he gave these all to
previous CM yesterday. CM provided patient with contact numbers for son's employment, patient reports if he calls them they will not respond. Patient reports he was previously staying at the [facility] but the weather has been nice so they
are closed. Patient reports he does have a truck to store belongings in. CM discussed [facility] and [facility] in [place], patient reports he would rather sleep in the streets then go to [place].
CM left two voicemails for [facility] [phone] requesting a return call. CM left a voicemail for [facility] [phone] requesting a return call. CM spoke with Alice from [facility] [phone], per Alice, patient can complete an
online form and the care team will review if patient is eligible for short term stay at a hotel, CM provided email [email or web address] for Alice to email form to.
Addendum entered by Jeanine Villalobos 04/11/23 14:15:
CM left voicemail for Diaz Sarabia with [facility], awaiting return call.
Original Note:
Patient seen, requesting calls to both of his son's: Vidal Duval and Balta Duval. Patient reports he has not spoken to Vidal in three years, last spoke to aBlta 6 weeks ago when he was informed his ex . Patient
reports he is working with Diaz Sarabia from [employer] in regards to housing assistance. Patient reports he does not have either of his son's telephone numbers but was able to provide their place of employment (Vidal: [employer]
[place]: [employer] Patient reports they may want nothing to do with him, but he would really like to talk to them. CM will continue to follow for discharge planning needs.
Plan; continue working with [employer]
--- NOTE | 2023-04-11 12:15 | CON.PUL ---
Consultation
Consultation Request
Date/Time Consultation Requested: 04/11/2023
Date/Time Consultation Performed: 04/11/2023
Requesting Provider: Dr. Mackey
Performing Provider: Dr. Layo Correa
Reason for Consultation: Exertional dyspnea
Medical History
Past Medical History
Past Medical History: Other (See assessment and plan section)
Social History
Tobacco: Non-smoker
Alcohol: None
Drug: None
Personal: Single
Living: Homeless
Allergies / Home Medications
Allergies
Allergy/AdvReac Type Severity Reaction Status Date / Time
Iodinated Contrast Media Allergy IV Verified 03/30/23 14:37
DYE-HIVES
Home Medications
Medication Instructions Recorded Confirmed Last Taken Type
mometasone 50 mcg/actuation nasal 2 spray intranasal BID PRN allergy 07/16/22 04/10/23 04/09/23 Rx
spray symptoms #17 grams
albuterol sulfate 90 mcg/actuation 2 puff inhalation R Q4HPRN PRN 12/14/22 04/10/23 04/08/23 History
aerosol inhaler shortness of breath or wheezing
diphenhydramine HCl 25 mg tablet 25 mg PO HS PRN Sleep 12/14/22 04/10/23 04/09/23 History
(Benadryl Allergy)
montelukast 10 mg tablet 10 mg PO DAILY Allergies 12/23/22 04/10/23 04/10/23 History
aspirin 81 mg tablet,delayed 81 mg PO DAILY 30 days #30 tabs 12/28/22 04/10/23 04/10/23 Rx
release
isosorbide mononitrate 30 mg 30 mg PO DAILY 30 days #30 tabs 12/28/22 04/10/23 04/10/23 Rx
tablet,extended release 24 hr
diltiazem HCl 240 mg 240 mg PO DAILY #0 caps 01/11/23 04/10/23 04/10/23 Rx
capsule,extended release 24 hr
polyethylene glycol 3350 17 gram 17 g PO BID #30 ea 01/11/23 04/10/23 2 Weeks Ago Rx
oral powder packet (Miralax) ~03/27/23
acetaminophen 500 mg tablet 1,000 mg PO HSPRN PRN mild pain 04/10/23 04/10/23 04/09/23 History
(Acetaminophen Extra Strength)
betamethasone dipropionate 0.05 % 1 applic topical BID PRN apply to 04/10/23 04/10/23 1 Week Ago History
lotion B/L legs ~04/03/23
dextroamphetamine-amphetamine 15 15 mg PO TID ADHD 04/10/23 04/10/23 04/09/23 History
mg tablet
furosemide 40 mg tablet 40 mg PO DAILY PRN weight gain 04/10/23 04/10/23 2 Days Ago History
(3lbs)/edema ~04/08/23
Review of Systems
Vitals / Labs / Diagnostic Testing
Vital Signs
Temp Pulse Resp BP Pulse Ox
98.9 F 87 20 187/98 95
04/11/23 11:30 04/11/23 11:30 04/11/23 11:30 04/11/23 11:30 04/11/23 11:30
Lab Data
04/11/23 06:17
04/11/23 06:17
Diagnostic Testing:
Assessment
-
67-year-old man who is homeless admitted to the hospital complaining of shortness of breath.Similar complaint back in July 2022. This time also complaining of chest discomfort. So far evaluation negative. We were consulted to rule out pulmonary
issues 04/11/2023.
Exertional dyspnea: Previous evaluation determined that is multifactorial.
CT chest 04/10/2023: No acute disease of the chest. No evidence for pulmonary embolism.
Echocardiogram 04/10/2023: LVEF 60-65%. Mild aortic stenosis. Mildly elevated pulmonary artery systolic pressure. Normal RV function. Moderate LVH.
Normal proBNP
Negative cardiac troponin
-cath 12/26/22: Right dominant circulation with a borderline nonocclusive 40-50% lesion in the mid LAD (nonocclusive but borderline disease (IFR = 0.91) and coronary arterial spasm, consistent with Prinzmetal's angina. Very mild aortic valve
stenosis.
Restrictive lung disease: due to obesity: Right hemidiaphragm elevation likely from paralysis. No evidence for interstitial lung disease.
6-minute walk testing 07/2022: No hypoxemia. Blunted heart rate response.
Conditions present prior admission:
Aortic stenosis
Heart failure with preserved ejection fraction
Restrictive lung disease with severely reduced TLC/DLCO 39%/27% (last bonifacio 05/25/22) due to obesity.
6MWT in office not showing need for O2
Last seen [facility] 05/25/22
CXR baseline very low lung volumes
S/p acute respiratory failure, adm [facility] Jan 2019
Intubation for airway protection at ER 01/11/19
Extubated 01/12/19
Overdose-responded to Narcan
States drank 'moonshine'-alcohol level pending, doubt methanol or ethylene glycol, non-gap mild acidosis, serum osmolarity 373
UDS negative
Note: UDS 2017 positive amphetamines/benzodiazepines and cocaine
Suspected suicidal attempt per EMR
? Asthma: Mild intermittent. Not on chronic inhalers.
Prior peripheral eosinophilia.
On Singulair.
No airflow obstruction on spirometry.
Last time seen in our office was 01/2023.
Klinefelter's syndrome
HTN
Morbid obesity
Seasonal allergies on montelukast.
BEA, intolerant to CPAP, on adderall-does not want further evaluation.
H/o ETOH and drug abuse
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
Splenectomy
Total knee arthroplasty �2007
Homeless, lives in his truck
-
Assessment and plan:
-
Exertional dyspnea a chronic problem for him for quite some time.
No acute pulmonary pathology.
-
Patient has restrictive lung disease due to obesity and right hemidiaphragm paralysis. Has been a chronic problem.
Prior 6-minute walk testing in our office 07/2023 without oxygen requirements. Blunted heart rate response.
There is no interstitial lung disease on CAT scan
There was no pulmonary embolism either.
Weight loss has been recommended. His weight is trending lower overall.
-
Patient has mild intermittent asthma with prior peripheral eosinophilia likely due to seasonal allergies.
No evidence for acute exacerbation.
Spirometry without airflow obstruction.
Weight loss should help asthma as well.
Not on long acting inhalers and he has been doing well.
Continue singular
Can continue albuterol HFA as needed which he has at home.
No indication for steroids or nebulizers at this point.
-
Obstructive sleep apnea: Severe. Intolerant to CPAP. May also contribute to shortness of breath in the setting of LVH and uncontrolled hypertension.
Weight loss and positional therapy recommended.
Patient is on Adderall which he gets from our office
Avoid alcohol and sedatives
-
Cardiology correspondence reviewed: Uncontrolled hypertension.
No evidence for acute abnormalities.
Previous cath noted.
-
I agree with discharge planning.
No additional recommendation from the pulmonary perspective.
Outpatient follow-up in our office with Dr. Rm after discharge.
-
/
Last time seen in our office was 01/2023.
Advised to follow-up in our office.� Has seen Dr. Rm in the past and Dr. Martinez.

Previous imaging reviewed:
CXR 07-13-12 c/w 04-30-22: No change in chronic elevation of R diaphragm. No pulmonary infiltrates
Chest CT� 03-16-21
Comparison examination: CT 01/19/2021
FINDINGS:
There is elevation of the right hemidiaphragm such as may be seen with paralysis of the right hemidiaphragm.
There is associated compressive atelectasis of the basilar portions of the right middle lobe and right lower lobe.
The nodular areas of groundglass airspace disease in the left upper lobe seen on the 01/20/2020 examination have resolved.
The left lung is clear.
There is vascular calcification indicating atherosclerosis.
The mediastinum is otherwise normal.
There is a calcified granuloma at the right hilum.
IMPRESSION:
There is elevation of the right hemidiaphragm such as may be seen with paralysis of the right hemidiaphragm with associated compressive atelectasis at the basilar portions of the right lower lobe and right middle lobe.
The left lung is clear.
TTE 07-13-22
CONCLUSIONS
�Normal left ventricular chamber size with mild concentric hypertrophy and hyperdynamic systolic function. Left ventricular ejection fraction is 75+%.
�Stage I diastolic dysfunction suggestive of abnormal relaxation.
�Normal right ventricular size and function.
�Normal atria.
�Calcified aortic valve with moderate aortic stenosis and no regurgitation.
�No other significant valve abnormalities are observed.
�No evidence of pulmonary hypertension.
�Compared to prior study of 11/10/2015, the left ventricle is now hyperdynamic and moderate aortic stenosis is now present.
Bonifacio 07/14/22- FEV1 0.95L 26%, FVC 1.3L 26%, ratio 73. Post FEV1 1.1L 30%, BD response of 16% in FEV1
Bonifacio 05/25/22 FEV1 0.96L 26%, FVC 1.37L 27%, ratio 70
Home O2 eval, ambulated 200 feet, O2 wesley 92%, no O2 required
--- NOTE | 2023-04-11 12:41 | PTCARENOTE ---
pt 1130 bp was 187/98. Dr Mackey made aware. No new orders at this time.
[2023-04-11] MEDS: LOVENOX 40 MG SC (17:07)
[2023-04-11] MEDS: SINGULAIR 10 MG PO (17:09)
[2023-04-11] MEDS: BENADRYL 25 MG PO (22:17)
[2023-04-12 02:53] VITALS: BP 142/67
[2023-04-12 06:00] VITALS: BMI 35.4
--- NOTE | 2023-04-12 06:36 | W.PN.HOSP.TC ---
Addendum entered and electronically signed by Lowell Mackey MD 04/12/23 07:49:
Case discussed with Dr. Briggs. Patient is medically cleared for discharge.
Total time spent on d/c = 31 min. This included today's physical exam, progress note, review of laboratory and diagnostic data, preparation of discharge documents and prescriptions, and discussions about the pt's hospital course and discharge plan
with the patient and other certified medical aide involved in the patient's care.
Original Note:
Today's Communication/Plan
-
d/c later today after seen by cards
Assessment / Plan
Assessment / Plan
Gen: NAD, AAOx3.
Eyes: EOMI, PERRLA, no scleral icterus.
Neck: supple.
CV: RRR, +S1/S2, 2/6 SAMREEN
Resp: remains CTAB, no rales, wheezes, or rhonchi.
Abd: +BS, soft, NT, ND
Skin: No rashes.
Neuro: remains CN 2-12 intact, non-focal.
Psych: Normal mood and affect.
Cath 12/26/22: Right dominant circulation with a borderline nonocclusive 40-50% lesion in the mid LAD (nonocclusive but borderline disease, IFR = 0.91) and coronary arterial spasm, consistent with Prinzmetal's angina. Very mild aortic valve stenosis.
CTA chest: No acute disease of the chest. No evidence of pulmonary embolus.
Echo: Normal biventricular size and systolic function without regional wall motion
�abnormality. Estimated LVEF 60-65%.
�Moderate concentric left ventricular hypertrophy.
�Mild aortic stenosis. Peak/mean gradients across the aortic valve are 40/22
�mmHg. The aortic valve by the Continuity equation is calculated at 1.8 cm sq
�using an LVOT diameter of 1.9 cm.
�Trace tricuspid regurgitation. Mildly elevated PASP. Estimated pulmonary artery
�pressure of 38 mmHg assuming a right atrial pressure of 3 mmHg
SOB and CP:
-CTA chest without PE or acute disease of the chest
-Trops NEG x 3, ACS ruled out
-doubt acute component of HFpEF with proBNP 272, no pulm edema, and echo without significant change from 12/14/22 (pt does have chronic HFpEF)
-cardiology following, discussed with Dr. Munoz.
-pulm saw in c/s
Other problems:
Thrombocytopenia: unclear cause, stable, outpt w/u
Essential hypertension: cont Imdur/Cardizem, Lisinopril started
h/o asthma and restrictive lung disease
Obesity due to excess calories: Affects all aspects of care. Encourage weight loss.
Homelessness
FULL/Lovenox
Anticipated Discharge: Today
Subjective/Interval History
-
Date of Service: April 12, 2023
Denies chest pain or shortness of breath.
Objective Data
-
Vital Signs:
Vital Signs
Temp Pulse Resp BP Pulse Ox
97.6 F 59 18 142/67 94
04/12/23 02:53 04/12/23 02:53 04/12/23 02:53 04/12/23 02:53 04/12/23 02:53
I&O
04/10/23 04/11/23 04/12/23
06:59 06:59 06:59
Intake Total 0 / 1920 2340 / 2340
Output Total 1000 / 1000 375 / 375
Balance 920 / 920 1965 / 1964
[2023-04-12 07:30] VITALS: BP 170/80
[2023-04-12] MEDS: MIRALAX 17 GRAMS PO (08:16)
[2023-04-12] MEDS: IMDUR (EXTENDED RELEASE) 60 MG PO (08:16)
[2023-04-12] MEDS: ZESTRIL 10 MG PO (08:16)
[2023-04-12] MEDS: CARDIZEM CD 240 MG PO (08:16)
[2023-04-12] MEDS: ASPIR LOW (ENTERIC COATED) 81 MG PO (08:16)
[2023-04-12] MEDS: ADDERALL 15 MG PO ×2 (08:16→14:20)
--- NOTE | 2023-04-12 10:20 | CM ---
Addendum entered by Jeanine Villalobos 04/12/23 14:59:
Patient medications filled through hospital pharmacy as patient is unable to get prescription from [facility]. Per [facility], they need a card on file for same day delivery. Funding for medications through [employer]. Patient discharged to discharge Carlos azul
provided transport to [facility]. CM will continue to follow for discharge planning needs.
Plan; discharge by Lydeepti to [facility].
Original Note:
CM spoke with [facility], able to have patient check in early, around 1:00 p.m. CM requested a first floor room for patient is possible.
CM spoke with Ifrah from [facility], able to fund a two night stay at [facility] in [place]. Per Ifrah, the manage of the [facility] is Ronan [phone] and Ronan is very familiar with patient. Ifrah reports check in it 3:00 p.m., CM
will call to see if patient is able to check in earlier. CM spoke with patient, patient reports he does not really like [facility] but will go there if that is his only option, patient asking if he is able to get one more night in hospital
and then have Saturday and Saturday at the [facility]. CM reports patient is medically cleared for discharge. CM confirmed patients pharmacy is [facility] in [place], will call to see if able to switch pharmacy to [facility] in [place] on [address]. Patient reports
his truck is in storage in [place] and he has no way to get his medication. CM spoke with [facility]- [address]- [phone], they are able to fill the prescriptions there and will get them ready. Per pharmacy, there is a cost
to deliver medications. CM will update patient.
Plan; discharge to [facility], will need Lydeepti.
[2023-04-12 11:43] VITALS: BP 164/79
--- NOTE | 2023-04-12 14:34 | W.DCSUMMARY ---
Discharge Summary
Discharge Data
Date of Admission: 04/10/23
Date of Discharge: 04/12/23
-
Pending Results: No
Hospital Course
Primary diagnoses:
Shortness of breath
Chest pain
Secondary diagnoses:
Chronic heart failure with preserved ejection fraction
Thrombocytopenia
Essential hypertension
h/o asthma and restrictive lung disease
Obesity due to excess calories
Homelessness
Consultants:
Cardiology
Pulmonary
Imaging:
CTA chest: No acute disease of the chest. No evidence of pulmonary embolus.
Echo: Normal biventricular size and systolic function without regional wall motion
�abnormality. Estimated LVEF 60-65%.
�Moderate concentric left ventricular hypertrophy.
�Mild aortic stenosis. Peak/mean gradients across the aortic valve are 40/22
�mmHg. The aortic valve by the Continuity equation is calculated at 1.8 cm sq
�using an LVOT diameter of 1.9 cm.
�Trace tricuspid regurgitation. Mildly elevated PASP. Estimated pulmonary artery
�pressure of 38 mmHg assuming a right atrial pressure of 3 mmHg
Hospital course: 67-year-old male who presented with chief complaints of chest pain and dyspnea on exertion as outlined in the H&P done on admission. Patient had 3 negative troponins and acute coronary syndrome was ruled out. CT angiogram of the
chest was without pulmonary embolism or acute disease of the chest. proBNP was 272 and the patient had no pulmonary edema. An echocardiogram that did not show significant change from 12/14/22. On the day of discharge the patient had a stress
echocardiogram that was read as normal/low risk. His blood pressure was poorly controlled lisinopril was started. He did have improvement in his blood pressure. He was discharged in medically stable condition
Discharge Plan
-
Patient Disposition: Home (Routine Discharge)
Discharge Diagnosis/Procedures: Shortness of breath and chest pain
Condition: Good
Diet: Low Sodium and Other diet
Additional Diets: Heart healthy
Activity: As tolerated
Driving Restrictions: As prior to admission
Blood Work: BMP and CBC in 1 week, prescription from PCP
Activity Restrictions/Additional Instructions:
You need to discuss your thrombocytopenia with your primary care physician or make an appointment with hematology.
Referrals:
Nando Agustin DO [Family Provider] - in less than 1 week
Geovanny Rm MD [Active] - in one to two months
Prescriptions:
New
isosorbide mononitrate 60 mg Tablet Extended Release 24 Hr
60 mg PO DAILY Qty: 30 0RF
lisinopril 10 mg Tablet
10 mg PO DAILY Qty: 30 0RF
Continued
mometasone 50 mcg/actuation spray,non-aerosol
2 spray intranasal BID PRN (Reason: allergy symptoms) Qty: 17 0RF
diphenhydramine HCl [Benadryl Allergy] 25 mg Tablet
25 mg PO HS PRN (Reason: Sleep)
albuterol sulfate 90 mcg/actuation HFA aerosol inhaler
2 puff inhalation R Q4HPRN PRN (Reason: shortness of breath or wheezing)
montelukast 10 mg tablet
10 mg PO DAILY
aspirin 81 mg Tablet,Delayed Release (Dr/Ec)
81 mg PO DAILY 30 Days Qty: 30 0RF
diltiazem HCl 240 mg Capsule,Extended Release 24hr
240 mg PO DAILY Qty: 0 0RF
polyethylene glycol 3350 [Miralax] 17 gram powder in packet
17 g PO BID Qty: 30 0RF
Patient Comments:
04/10/2023, pt. states that he ran out of this med. but he normally takes it BID.
betamethasone dipropionate 0.05 % Lotion
1 applic TOPICAL BID PRN (Reason: apply to B/L legs)
furosemide 40 mg tablet
40 mg PO DAILY PRN (Reason: weight gain (3lbs)/edema)
acetaminophen [Acetaminophen Extra Strength] 500 mg tablet
1,000 mg PO HSPRN PRN (Reason: mild pain)
dextroamphetamine-amphetamine 15 MG tablet
15 mg PO TID
Patient Comments:
04/10/2023, pt. filled this med. on 03/20/2023 for 90 tablets according to PDMP.
Discontinued
isosorbide mononitrate 30 mg Tablet Extended Release 24 Hr
30 mg PO DAILY 30 Days Qty: 30 0RF
Discharge Orders:
Discharge Patient (As Directed); Ordered 04/12/23
Ordered By: Lowell Mackey
Discharge Date and Time
Discharge Date/Time: 04/12/23 14:28
== END 2023-04-12 14:28 | disposition home or self-care (01) ==
LOC: 4 WEST ACU 13:12
PROVIDERS: Emergency Medicine; Registered Nurse; ADMITTING PHYSICIAN Internal Medicine; CONSULT PHYSICIAN Internal Medicine; CONSULT PHYSICIAN Internal Medicine Critical Care Medicine; EMERGENCY PHYSICIAN Emergency Medicine; FAMILY PHYSICIAN Family Medicine
DX: R06.02 Shortness of breath (principal); I11.0 Hypertensive heart disease with heart failure; J44.89 Other specified chronic obstructive pulmonary disease; I50.32 Chronic diastolic (congestive) heart failure; I25.111 Atherosclerotic heart disease of native coronary artery with angina pectoris with documented spasm; Q98.4 Klinefelter syndrome, unspecified; E78.00 Pure hypercholesterolemia, unspecified; R09.02 Hypoxemia; E87.70 Fluid overload, unspecified; D69.6 Thrombocytopenia, unspecified; R06.09 Other forms of dyspnea; G47.33 Obstructive sleep apnea (adult) (pediatric); I35.0 Nonrheumatic aortic (valve) stenosis; E66.09 Other obesity due to excess calories; R07.89 Other chest pain; Z68.35 Body mass index [BMI] 35.0-35.9, adult; Z59.00 Homelessness unspecified; Z11.52 Encounter for screening for COVID-19; Z91.041 Radiographic dye allergy status; Z79.82 Long term (current) use of aspirin
CPT/HCPCS: 71046; 71275; 80048; 80053; 80061; 83036; 83735; 83880; 84484; 85025; 85027; 85610; 87070; 87147; 87811; 93005; 93306; 94640; 96374; 96375; 97162; 99285; G0378; Q9967

== ENCOUNTER 2023-06-02 22:54 | Inpatient (IN) | payer MEDICARE, SELFPAY ==
[2023-06-02 16:26] VITALS: BMI 37.6
[2023-06-02 16:39] VITALS: BP 205/96
[2023-06-02 17:16] LABS: Hematocrit 40.8 % (39.0-52.0); Hemoglobin 14.1 g/dL (13.0-18.0); Mean Corp Hgb Conc. 34.6 g/dL (33.0-37.0); Mean Corpuscular Hgb 30.1 pg (27.0-31.0); Red Blood Cell Count 4.69 10^6/uL (4.70-6.10); White Blood Cell Count 6.4 10^3/uL (4.8-10.8)
[2023-06-02 17:29] LABS: COVID-19 Antigen Negative (Negative)
[2023-06-02 17:36] LABS: ALT (SGPT) 18 U/L (0-50); AST (SGOT) 24 U/L (17-59); Albumin 4.1 g/dl (3.5-5.0); Alkaline Phosphatase 68 U/L (38-126); Blood Urea Nitrogen 15 mg/dl (9-20); Calcium 9.5 mg/dl (8.4-10.2); Carbon Dioxide 25 mmol/L (22-30); Chloride 97 mmol/L (98-107); Glucose 106 mg/dl (70-99); Potassium 3.9 mmol/L (3.5-5.1); Sodium 132 mmol/L (135-145); Total Bilirubin 0.6 mg/dl (0.2-1.3); Total Protein 7.3 g/dl (6.3-8.2); eGFR > 60.00
[2023-06-02 17:43] LABS: Band Neutrophils 0 % (0-3); Lymphocytes 6 % (20-51); Mean Platelet Volume 12.5 fL (7.4-10.4); Platelet Count 68 10^3/uL (130-400); Segmented Neutrophils 63 % (42-75)
[2023-06-02 17:44] LABS: Atypical Lymphocytes 1 %; Monocytes 30 % (2-9); Normal RBC Morphology No; Nucleated Red Blood Cells 1 (-); Platelets Checked Yes
[2023-06-02 17:45] LABS: Target Cells Slight; Total Cells Counted 100
[2023-06-02 17:57] LABS: NT-proBNP 515 pg/ml; Troponin I 0.039 ng/ml
[2023-06-02] MEDS: TYLENOL 1000 MG PO (20:02)
--- NOTE | 2023-06-02 20:19 | ED.GENMED ---
History of Present Illness
General
Chief Complaint: Breathing Problem
Source: patient
Exam Limitations: none
Time Seen by Provider: 06/02/23 19:27
Travel History
Have you had any contact with someone who has COVID-19?: No
Do you have any symptoms of coronavirus? Fever > 100 degrees, chills, cough, shortness of breath, sore throat, loss of taste or smell, muscle aches, or headache?: No
History of Present Illness
History of Present Illness:
This is a 68 year old male that comes in with c/o cough and SOB. States that he started with a cough about 3 days ago. States that he started with difficulty breathing and he is SOB. States that he has a fever with chills, SOB, abd pain, headache
and dizziness. Denies any chest pain, nausea, vomiting, diarrhea, urinary burning.
Past History
Past History
ED Past Medical History: Asthma, CHF, HTN and Other (Klinefelter, obesity, leg edema)
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 )
Social History
Tobacco: Non-smoker (Unknown)
Alcohol: None (Unknown)
Drug: Narcotics
Personal:
Living: alone
Review of Systems
Review of Systems
All Other Systems: ROS reviewed and negative except as documented in HPI and ROS
Constitutional: Reports fever and chills
EENT: Reports no symptoms
Respiratory: Reports cough and trouble breathing
Cardiac: Denies chest pain
ABD/GI: Reports abdominal pain; Denies nausea, vomiting or diarrhea
: Reports no symptoms; Denies dysuria, frequency or urgency
Musculoskeletal: Reports no symptoms
Skin: Reports no symptoms
Neurological: Reports dizzy and headache
Psychiatric: Reports no symptoms
Phy Exam
General Physical Exam
General Presentation: mild distress
General age: appears stated age
General Skin: warm and dry
General Habitus: elderly
General Mental: alert
General Hydration: appears well hydrated
ENT Exam
ENT Exam: TM's normal, pharynx normal and neck supple
Eye Exam
Eye Exam: EOMI
Cardiovascular Exam
Cardiovascular Exam: regular rate/rhythm and normal peripheral pulses
Pulmonary Exam
Pulmonary Exam: no rales, chest non tender, no crackles, no rhonchi, decreased breath sounds, generalized wheezing (Exp throughout) and other (tachypnea, Dry cough noted)
Gastrointestinal Exam
Gastrointestinal Exam: normal bowel sounds, non tender, soft, no organomegaly, no pulsatile mass and non distended
Musculoskeletal Exam
Musculoskeletal Exam: full ROM and edema (Slight ankle and lower leg edema +1 pitting)
Skin Exam
Skin Exam: normal color, warm/dry, no rash and no petechia
Psychiatric Exam
Psychiatric Exam: normal mood/affect
Scores
Heart Failure Risk
Heart Failure Risk Score: Not Applicable
Course
Orders/Labs/Results
Orders:
Orders
06/02/23 16:38
Electrocardiogram (*1) Urgent
Reason for Study: Other
Other Reason for Exam: Respiratory Distress
Cardiac Monitoring- Treatment ONCE
EKG- Treatment ONCE
IV Insert/Care/Rem.- Treatment PRN
O2 Therapy [RESP] Urgent
Titrate/Wean O2 to maintain O2 sat greater than (%): 93
Special Instructions: TO MAINTAIN CONTINUOUS O2 SATS >/= 93%
Pulse Ox/cont/shift [RESP] Urgent
Quantity: 1
Special Instructions: continuous pulse ox
06/02/23 17:01
COVID-19 Antigen Urgent
Source: Nasal Swab
Complete Blood Count/With Diff Urgent
Comprehensive Metabolic Panel Urgent
Lactic Acid Q4H
Comment: WITH 1ST SET OF BLOOD CULTURES,CANCEL 2ND LACTIC ACID IF FIRST <2
Manual Differential Urgent
NT-proBNP Urgent
Troponin I Urgent
Blood Culture Q30M
VIDYA Source: Blood/Venous
Specimen Description:
Comment: FROM SEPARATE SITES
Influenza A+B Rapid Molecular Urgent
VIDYA Source: Nasal Swab
Specimen Description:
06/02/23 17:15
Blood Culture Q30M
VIDYA Source: Blood/Venous
Specimen Description:
Comment: FROM SEPARATE SITES
06/02/23 20:01
Acetaminophen [Tylenol] 1,000 mg .ROUTE .STK-MED ONE
Acetaminophen [Tylenol] 1,000 mg PO NOW STA
06/02/23 20:18
Dexamethasone Sod Phosphate [Decadron] 20 mg IV NOW STA
Ipratropium/Albuterol Sulfate [Duoneb] 3 ml INH R NOW ONE
06/02/23 20:19
CR Chest - 2 Views Urgent
Comment:
Reason For Exam: SOB, COUGh
06/02/23 20:41
Troponin I Urgent
Abnormal Lab Results
06/02/23 06/02/23
17:01 20:41
RBC 4.69 L 10^6/uL
(4.70-6.10)
Plt Count 68 L 10^3/uL
(130-400)
MPV 12.5 H fL
(7.4-10.4)
Lymphocytes (Manual) 6 L %
(20-51)
Monocytes (Manual) 30 H %
(2-9)
Sodium 132 L mmol/L
(135-145)
Chloride 97 L mmol/L
(98-107)
Glucose 106 H mg/dl
(70-99)
Troponin I 0.039 H* ng/ml 0.057 H* D ng/ml
06/02/23 17:01
06/02/23 17:01
Thrombocytopenia, Sodium slightly low, Glucose nonfasting. Troponin slightly elevated 0.039, Lactic acid normal at 1.0, Pro-BNP 515, COVID negative. Positive for Influenza A
Second Troponin 0.057
Vital Signs
Initial and Last Documented VS:
Initial Vital Signs
Temp Pulse Resp BP Pulse Ox
100 F 104 28 205/96 94
06/02/23 16:39 06/02/23 16:39 06/02/23 16:39 06/02/23 16:39 06/02/23 16:39
Last Documented Vital Signs
Temp Pulse Resp BP Pulse Ox
102.8 F H 104 28 205/96 90
06/02/23 20:00 06/02/23 16:39 06/02/23 16:39 06/02/23 16:39 06/02/23 21:19
MDM/Problems Addressed
Differential Diagnosis Includes:
Asthma exacerbation. COVID, Influenza, CHF
MDM/Problems Addressed:
This is a 68 year old male that comes in with c/o cough, fever and SOB. State that this started 3 days ago. with the cough. Then 2 days ago a fever. States that he is SOB and he amost passed out when he was walking in to the ER
Will get labs. COVID, Influenza, Chest x-ray. Patient was Hypoxic upon entering the room so place on 2 liters of fluid. Will give Duo, Decadron. Patient is tachypnic. Explained that he will most likely be admitted.
Back into see patient. Explained that his X-ray was negative for any acute process. However, patient will be admitted as this is a combination of Asthma exacerbation, Influenza with Hypoxia and an elevated Troponin. Hospitalist notified.
Chronic conditions affecting care: Asthma
Acute Exacerbation and/or Progression of Chronic Illness: Asthma
*Radiology
Radiology exam reviewed: preliminary read by ED provider (Chest negative for acute disease, Right elevated diaphragm)
*Pulse Oximetry
Patient hypoxic: yes
Comment: 88 upon entering room to see patient.
*EKG
Interpreted by ED Provider?: Yes
Heart Rate: 102
Rate: tachycardiac
Rhythm: sinus
[place]: normal axis
Interval: normal interval
QRS Pattern: normal QRS
Ischemia: no ischemia
*Critical Care Note
Total Time (30-74mins, 75-104mins- exclusive of procedures): Not Applicable
ED Attending Note
-
Portions of this chart may have been created with voice recognition software.� Occasional wrong word or��sound alike� substitutions may have occurred due to the inherent limitations of voice recognition software.
Discharge Plan
Departure
Patient Disposition: Admit
Date of Disposition: 06/02/23
Time of Disposition: 21:39
Admit to: Telemetry
Presentation/result/management discussed w/ accepting MD/DO: Hospitalist
Condition: Good
Covid-19: Negative COVID-19
Discharge Problem:
Influenza A, Elevated troponin, Hypoxia, Asthma exacerbation
Prescriptions:
No Action
mometasone 50 mcg/actuation spray,non-aerosol
2 spray intranasal BID PRN (Reason: allergy symptoms) Qty: 17 0RF
montelukast 10 mg tablet
10 mg PO DAILY
diltiazem HCl 240 mg Capsule,Extended Release 24hr
240 mg PO DAILY Qty: 0 0RF
furosemide 40 mg tablet
40 mg PO DAILY PRN (Reason: weight gain (3lbs)/edema)
acetaminophen [Acetaminophen Extra Strength] 500 mg tablet
1,000 mg PO HSPRN PRN (Reason: mild pain)
dextroamphetamine-amphetamine 15 MG tablet
15 mg PO BID
Patient Comments:
04/10/2023, pt. filled this med. on 03/20/2023 for 90 tablets according to PDMP.
isosorbide mononitrate 60 mg Tablet Extended Release 24 Hr
60 mg PO DAILY Qty: 30 0RF
losartan 100 mg Tablet
100 mg PO DAILY
rosuvastatin [Crestor] 10 mg Tablet
10 mg PO DAILY
Referrals:
Nando Agustin, DO [Family Provider] -
Interventions
Interventions:
*Risk Screen - Suicide Last Done: 06/02/23 16:39
*General Assessment Last Done: 06/02/23 16:39
*Neglect/Abuse Screening Last Done: 06/02/23 16:39
*ED COVID-19 Vaccine History Last Done: 06/02/23 20:04
ED- Cardiac Assessment Last Done: 06/02/23 21:19
ED- Pulmonary Assessment Last Done: 06/02/23 21:19
Discharge Date and Time
Print Language: SWISS
[2023-06-02 20:36] VITALS: BP 160/77
[2023-06-02] MEDS: DUONEB 3 ML INH (20:42)
[2023-06-02] MEDS: DECADRON 20 MG IV (20:42)
[2023-06-02 21:00] VITALS: BP 154/76
[2023-06-02 21:28] LABS: Troponin I 0.057 ng/ml
[2023-06-02 22:00] VITALS: BP 158/70
--- NOTE | 2023-06-02 22:30 | HPS.HSE ---
Addendum entered and electronically signed by Tuan Richardson MD 06/03/23 14:04:
Correction:
Elevated POS TPNI DDX: NSTEMI vs <del>NMITE</del> NIMI
No CP , nl EKG
HX Non obstructed CAD / Coronary Vasospasm
HLD
- Trend TPNI
- cont. ADVANCED DEVELOPER IMN, and Rosuvastatin
- CBC card consult
Original Note:
Family Physician
-
Family Physician: Nando Agustin
Chief Complaint
-
SOB
History of Present Illness
68M Homeless, Obesity HX CHF, Asthma/ COPD, HTN, Non-Obstructive CAD, HX splencetomy , chr thrombocytopenia pw SOB
Associatted fever and chills , MATUTE and dizziness.
Medical History
Past Medical History
Past Medical History: Reports Other
Additional Past Medical History:
Asthma
Hypertension
Klinefelter Syndrome
Obesity
Aortic stenosis
BEA not on PAP
Chronic HFpEF
COPD
Coronary Vasospasm
Non-Obstructive Coronary Artery Disease
Past Surgical History: Reports Other
Additional Past Surgical History:
Splenectomy
Left Adrenalectomy
Right Knee Arthroscopy
Genital Surgery
Social History
Tobacco: Non-smoker
Alcohol: None
Personal: Single
Living: Homeless
Family History
Family History: Not pertinent
Allergies / Home Medications
Allergies reflects when Allergies were last updated in [facility].
Home Medications with original date entered in [facility]
Allergy/Medication List:
Allergies
Allergy/AdvReac Type Severity Reaction Status Date / Time
Iodinated Contrast Media Allergy IV Verified 03/30/23 14:37
DYE-HIVES
Home Medications
mometasone 50 mcg/actuation nasal spray 2 spray intranasal BID PRN allergy symptoms #17 grams 07/16/22
montelukast 10 mg tablet 10 mg PO DAILY Allergies 12/23/22
diltiazem HCl 240 mg capsule,extended release 24 hr 240 mg PO DAILY #0 caps 01/11/23
acetaminophen 500 mg tablet (Acetaminophen Extra Strength) 1,000 mg PO HSPRN PRN mild pain 04/10/23
dextroamphetamine-amphetamine 15 mg tablet 15 mg PO BID ADHD 04/10/23
furosemide 40 mg tablet 40 mg PO DAILY PRN weight gain (3lbs)/edema 04/10/23
isosorbide mononitrate 60 mg tablet,extended release 24 hr 60 mg PO DAILY #30 tabs 04/12/23
losartan 100 mg tablet 100 mg PO DAILY 06/02/23
rosuvastatin 10 mg tablet (Crestor) 10 mg PO DAILY 06/02/23
Review of Systems
-
Constitutional: Reports No Symptoms
EENT: Reports No Symptoms
Respiratory: Reports See HPI and Trouble Breathing
Cardiac: Reports No Symptoms
Abdomen/GI: Reports No Symptoms
: Reports No Symptoms
Musculoskeletal: Reports No Symptoms
Skin: Reports No Symptoms
Neurological: Reports No Symptoms
Endocrine: Reports No Symptoms
Hematologic/Lymphatic: Reports No Symptoms
Psych: Reports No Symptoms
Physical Exam
Vital Signs
Vital Signs
Temp Pulse Resp BP Pulse Ox
102.8 F H 81 28 158/70 96
06/02/23 20:00 06/02/23 22:00 06/02/23 22:00 06/02/23 22:00 06/02/23 22:00
Physical Exam
General: Respiratory Distress (mild ), Fever (102), Chills and Other (drowzy )
HEENT: NormoCephalic, Anicteric and Moist mucous membranes
Respiratory: Wheezes (diffuse and biphasic ) and Other ( tachypnic 20-30 POx 93-95 )
Cardiac: S1/S2 and Regular Rhythm; No Tachycardia
Breast: Deferred by me
GI: Soft, Non Tender, Non Distended and Normal Bowel Sounds
Rectal: Deferred by Provider
Genito-urinary: Deferred by me
Musculoskeletal: No Edema
Skin: Warm
Neuro: AO x 3
Psych: Calm
Laboratory Results
-
06/02/23 17:01
06/02/23 17:01
Laboratory Results
Lactic Acid 1.0 mmol/L (0.7-2.0) 06/02/23 17:01
Total Bilirubin 0.6 mg/dl (0.2-1.3) 06/02/23 17:01
AST 24 U/L (17-59) 06/02/23 17:01
ALT 18 U/L (0-50) 06/02/23 17:01
Alkaline Phosphatase 68 U/L (38-126) 06/02/23 17:01
Troponin I 0.057 ng/ml H* D 06/02/23 20:41
Data Reviewed
-
Medical Tests (Nuc Med, Echo, EKG etc): Report Reviewed by me
Lab Data: Labs Reviewed by me
Old Records: Reviewed
Impression/Plan
-
Reviewed VS: T spiked 102.8 tachypneic 20-30 POx 93-95 HR 77 BP 155/75
Data
nl WCC
Plt 68 - baseline 90 - 120
Na132
nl Cr
NEG LA
TPNI 0.057
pro BNP 515
POS Flu A
NEG Covid
BCx sent
CXR:
Right hemidiaphragm is slightly elevated compared to the left hemidiaphragm.
Compressive atelectasis both lower lungs, right greater than left.
Mild increased interstitial markings within the left lung with slight peribronchial thickening, which could indicate bronchitis or interstitial pneumonia.
EKG report
SINUS TACHYCARDIA
OTHERWISE NORMAL ECG
WHEN COMPARED WITH ECG OF 10-APR-2023 08:15,
VENT. RATE HAS INCREASED BY 40 BPM
04/10/23 Echo:
Normal biventricular size and systolic function without regional wall motion abnormality.
Estimated LVEF 60-65%.
Moderate concentric left ventricular hypertrophy.
Mild aortic stenosis. Peak/mean gradients across the aortic valve are 40/22 mmHg.
The aortic valve by the Continuity equation is calculated at 1.8 cm sq using an LVOT diameter of 1.9 cm.
Trace tricuspid regurgitation. Mildly elevated PASP. Estimated pulmonary artery pressure of 38 mmHg assuming a right atrial pressure of 3 mmHg
Last hospitalist admission: 04/10/23- 04/12/23 DX: CP CTA chest: No acute disease of the chest. No evidence of pulmonary embolus.
ASSESSMENT & PLAN
Influenza infection
Feeling unwell for > seems 48hrs
- supportive care
- No indication for Oseltamivir
suspect Asthmatic bronchitis by influenza with broncho spasm on exam
HX COPD/Asthma
- IV Decadron
- DuoNeb qid and PRN
- O2 to keep POx > 94
- cont. ADVANCED DEVELOPER Montelukast
- ABG with any change of MS
Elevated POS TPNI DDX: NSTEMI vs NMITE
No CP , nl EKG
HX Non obstructed CAD / Coronary Vasospasm
HLD
- Trend TPNI
- cont. ADVANCED DEVELOPER IMN, and Rosuvastatin
- CBC card consult
HX CHF - recent LVEF 60-65
Mild aortic stenosis.
- Not in acute HF
- cont ADVANCED DEVELOPER Frusemide, BB, IMN
Thrombocytopenia unclear cause
HX Splenectomy - usually associated with Thrombocytosis not Thrombocytopenia
- No active bleed
- trend Plt
Essential hypertension
-on Losartan and Diltiazem
Obesity due to excess calories
- Affects all aspects of care.
- Encourage healthy diet and activity as tolerated for goal of weight loss.
Homelessness
Lives in the car
- CRM consult
DVT Px: LMWH
Code: Full
IP TLM
[2023-06-02 23:00] VITALS: BP 153/72
[2023-06-03] VITALS (21 sets, daily range): BP systolic 116–184; BP diastolic 53–94; BMI 36.5
[2023-06-03] MEDS: DUONEB 3 ML INH ×5 (02:34→18:16)
[2023-06-03 05:56] LABS: % Basophils 0.1 % (0-2); % Immature Granulocytes 0.5 % (0-0.5); % Lymphocytes 3.9 % (20.5-51.1); % Monocytes 3.5 % (1.7-9.3); Absolute Lymphocytes 0.3 10^3/uL (1.2-3.4); Absolute Monocytes 0.3 10^3/uL (0.1-0.6); Absolute Neutrophils 6.8 10^3/uL (1.4-6.5); Hematocrit 39.6 % (39.0-52.0); Hemoglobin 13.3 g/dL (13.0-18.0); Mean Corp Hgb Conc. 33.6 g/dL (33.0-37.0); Mean Corpuscular Hgb 29.8 pg (27.0-31.0); Mean Corpuscular Volume 88.8 fL (80.0-94.0); Mean Platelet Volume 12.5 fL (7.4-10.4); Nucleated Red Blood Cells % 0 % (-); Platelet Count 60 10^3/uL (130-400); Red Blood Cell Count 4.46 10^6/uL (4.70-6.10); Red Cell Dist. Width 14.1 % (11.5-14.5); White Blood Cell Count 7.4 10^3/uL (4.8-10.8)
[2023-06-03 06:10] LABS: Blood Urea Nitrogen 18 mg/dl (9-20); Calcium 8.8 mg/dl (8.4-10.2); Carbon Dioxide 27 mmol/L (22-30); Chloride 101 mmol/L (98-107); Estimated Creatinine Clearance 121 ml/min; Glucose 199 mg/dl (70-99); Sodium 134 mmol/L (135-145); eGFR > 60.00
[2023-06-03 06:17] LABS: Potassium 4.2 mmol/L (3.5-5.1)
[2023-06-03] MEDS: COZAAR 100 MG PO (07:10)
[2023-06-03] MEDS: SINGULAIR 10 MG PO (07:11)
[2023-06-03] MEDS: TYLENOL 1000 MG PO (07:11)
[2023-06-03] MEDS: CARDIZEM CD 240 MG PO (07:11)
[2023-06-03] MEDS: CRESTOR 10 MG PO (07:11)
[2023-06-03] MEDS: DECADRON 4 MG IV ×3 (07:12→23:09)
[2023-06-03] MEDS: ADDERALL 15 MG PO ×2 (07:32→13:17)
[2023-06-03] MEDS: IMDUR (EXTENDED RELEASE) 60 MG PO (07:32)
--- NOTE | 2023-06-03 08:21 | CON.CAR ---
Addendum entered and electronically signed by Portia Miller MD 06/03/23 10:06:
I saw and examined the patient.
The SERVER ASSISTANT's note was reviewed and I agree with the note.
Comment: 68year-old male (known to Dr. Briggs, his primary rail car unloader) with hypertension, dyslipidemia, non-obstructive CAD, coronary vasospasm, chronic HFpEF, mild to moderate aortic stenosis, prediabetes (hemoglobin A1c 5.9%), COPD,
Klinefelter's, history of EtOH/drug abuse, homelessness and noncompliance, presented with shortness of breath found to have a. We were asked to consult based on an abnormal troponin. He is not having any active chest pain. He has no orthopnea or
PND. On exam he has no elevated JVP, diffuse end expiratory wheezes, regular rate and rhythm normal S1-S2.No lower extremity edema and fax indentations with suspected diuretic use. EKG reviewed shows sinus tachycardia without ischemic changes.
Peak troponin 0.05. This elevated in non-ischemic myocardial injury due acute influenza. He is euvolemic. Treat influenza as per medicine. No active acute cardiac issue.
I will see again at your request.
Original Note:
Consultation
Consultation Request
Date/Time Consultation Requested: 06/02/23 23:00
Date/Time Consultation Performed: 06/03/23 08:20
Requesting Provider: Dr. Richardson
Performing Provider: SANDHYA Sousa for Dr. Miller
Reason for Consultation: Abnormal troponin
Medical History
-
Chief Complaint: Cough, shortness of breath
History of Present Illness:
Mr. Duval is a 68year-old male (known to Dr. Briggs, his primary rail car unloader) with hypertension, dyslipidemia, non-obstructive CAD, coronary vasospasm, chronic HFpEF, mild to moderate aortic stenosis, prediabetes (hemoglobin A1c 5.9%), COPD,
Klinefelter's, history of EtOH/drug abuse, homelessness and noncompliance, who is here with shortness of breath. His shortness of breath started last week. It continued to get worse. He presented to the ER and was found to be positive for influenza
A. Cardiology was consulted for abnormal troponin. He is not having any chest pain.
He is currently living in a rented car. He often sleeps at the [facility]. The [facility] will occasionally rent him a room.
Past Medical History
Past Medical History: Asthma, CHF, COPD, HTN, Hypercholesterolemia, Renal Failure (CKD), Valvular Disease (aortic stenosis) and Other (Coronary vasospasm)
Past Surgical History: Orthopedic, Urological and Other (Splenectomy)
Social History
Tobacco: Non-Smoker
Alcohol: None
Drug: Former User (Prior fentanyl OD)
Personal: Single
Living: Homeless
Employment: Not Employed
Family History
Family History: Reviewed & Not Pertinent
Allergies / Home Medications
Allergy/AdvReac Type Severity Reaction Status Date / Time
Iodinated Contrast Media Allergy IV Verified 03/30/23 14:37
DYE-HIVES
�Medication �Instructions �Recorded �Confirmed �Type
mometasone 50 mcg/actuation nasal 2 spray intranasal BID PRN allergy 07/16/22 06/02/23 Rx
spray symptoms #17 grams
montelukast 10 mg tablet 10 mg PO DAILY Allergies 12/23/22 06/02/23 History
diltiazem HCl 240 mg 240 mg PO DAILY #0 caps 01/11/23 06/02/23 Rx
capsule,extended release 24 hr
acetaminophen 500 mg tablet 1,000 mg PO HSPRN PRN mild pain 04/10/23 06/02/23 History
(Acetaminophen Extra Strength)
dextroamphetamine-amphetamine 15 15 mg PO BID ADHD 04/10/23 06/02/23 History
mg tablet
furosemide 40 mg tablet 40 mg PO DAILY PRN weight gain 04/10/23 06/02/23 History
(3lbs)/edema
isosorbide mononitrate 60 mg 60 mg PO DAILY #30 tabs 04/12/23 06/02/23 Rx
tablet,extended release 24 hr
losartan 100 mg tablet 100 mg PO DAILY 06/02/23 06/02/23 History
rosuvastatin 10 mg tablet (Crestor) 10 mg PO DAILY 06/02/23 06/02/23 History
Review of Systems
-
History Source: Patient
Constitutional: Chills
Respiratory: Cough and Trouble Breathing
Physical Exam
Vital Signs
Temp Pulse Resp BP Pulse Ox
98.7 F 72 21 162/83 94
06/03/23 02:40 06/03/23 08:00 06/03/23 07:54 06/03/23 08:00 06/03/23 08:00
Lab Results
06/03/23 05:43
06/03/23 05:43
Troponin I 0.057 ng/ml H* D 06/02/23 20:41
Yat-B-Phpurmvjwpb Pept 515 pg/ml 06/02/23 17:01
Physical Exam
General: Well Developed, Well Nourished and No Apparent Distress
HEENT: Normocephalic, Anicteric and Moist Mucous Membranes
Respiratory: Wheezes (expiratory)
Cardiac: S1/S2 and Regular Rhythm; Negative Peripheral Edema
Breast: Deferred by me
GI: Soft, Non Distended and Normal Bowel Sounds
Rectal: Deferred by Provider
Genito-urinary: No Costovertebral Tender
Musculoskeletal: No Clubbing and No Cyanosis
Skin: Warm and Dry
Neuro: AO x 3
Hematologic/Lymphatic: No Lymphadenopathy
Psych: Calm
Impression / Plan
-
Shortness of breath
-In the setting of influenza with chronic lung disease (asthma)
Influenza A, per primary
Abnormal troponin, non-ischemic myocardial injury in the setting of acute illness
-Chest pain free
-EKG stable
-Peak 0.057 (last night)
HFpEF, chronic
-Weight is up without edema, re-weigh on standing scale
-HF education provided
-Daily weight, low sodium diet
CAD, non obstructive
-Chest pain free, continue medical mgmt
-[facility] 12/2022: Borderline nonocclusive 40-50% lesion in the mid LAD (nonocclusive but borderline disease (IFR = 0.91) and coronary arterial spasm, consistent with Prinzmetal's angina
Coronary vasospasm, it is less than ideal to use dextroamphetamine in this patient, this is managed by Dr. Rm
HLD, on rosuvastatin
Aortic stenosis, mild, peak/mean 40/22 mmHg
Pre-diabetes, Hgba1c 5.8%
Klinefelter's
Obesity
Prior overdose requiring Narcan
Homelessness, lives in his car
Data Reviewed
-
EKG: Report Reviewed by me (Sinus tachycardia, rate 102)
Radiology: Report Reviewed by me (CXR: Right hemidiaphragm is slightly elevated compared to the left hemidiaphragm. Compressive atelectasis both lower lungs, right greater than left. Mild increased interstitial markings within the left lung with
slight peribronchial thickening, which could indicate bronchitis.)
Labs: Labs Reviewed by me
Old Records: Reviewed
[2023-06-03 09:12] LABS: Troponin I 0.039 ng/ml
--- NOTE | 2023-06-03 10:18 | EDRN ---
Pt is eating breakfast at this time.
--- NOTE | 2023-06-03 10:50 | W.PN.HOSP.TC ---
Today's Communication/Plan
-
cont steroids, neb tx
Assessment / Plan
Assessment / Plan
ASSESSMENT & PLAN
Influenza infection
Feeling unwell for > seems 48hrs
- supportive care
- No indication for Oseltamivir
suspect Asthmatic bronchitis by influenza with broncho spasm on exam
HX COPD/Asthma
- IV Decadron
- DuoNeb qid and PRN
- O2 to keep POx > 94
- cont. BLAST FURNACE HELPER Montelukast
- ABG with any change of MS
Elevated POS TPNI
No CP , nl EKG
HX Non obstructed CAD / Coronary Vasospasm
HLD
- Trend TPNI
- cont. BLAST FURNACE HELPER IMN, and Rosuvastatin
- felt non mi troponin elevation 2/2 influenza infection
HX CHF - recent LVEF 60-65
Mild aortic stenosis.
- Not in acute HF
- cont BLAST FURNACE HELPER Furosemide, BB, IMN
Thrombocytopenia unclear cause
HX Splenectomy - usually associated with Thrombocytosis not Thrombocytopenia
- No active bleed
- trend Plt
Essential hypertension
-on Losartan and Diltiazem
Obesity due to excess calories
- Affects all aspects of care.
- Encourage healthy diet and activity as tolerated for goal of weight loss.
Homelessness
Lives in the car
- CRM consult
Anticipated Discharge: 24 - 48 hours
Subjective/Interval History
-
Date of Service: June 03, 2023
pt continues with wheezing
not yet at the baseline
no chest pain
Objective Data
-
Labs:
Laboratory Results
06/03/23
05:43
WBC 7.4
Hgb 13.3
Hct 39.6
Plt Count 60 L
Sodium 134 L
Potassium 4.2
Chloride 101
Carbon Dioxide 27
BUN 18
Creatinine 0.8
Glucose 199 H
Calcium 8.8
Vital Signs:
Vital Signs
Temp Pulse Resp BP Pulse Ox
97.6 F 67 18 125/62 93
06/03/23 10:01 06/03/23 10:01 06/03/23 10:01 06/03/23 10:01 06/03/23 10:16
I&O
06/02/23 06/03/23 06/04/23
06:59 06:59 06:59
Output Total 1250 / 1250
Balance -1250 / -1250
Review of Systems
-
History Source: Patient
All other systems: Reviewed and negative
Respiratory: Reports Wheezing
Physical Exam
-
General: Well Developed and No Apparent Distress
HEENT: Normocephalic, Atraumatic and Moist Mucous Membranes
Respiratory: Wheezes
Cardiac: Regular Rhythm and S1/S2; Negative Murmur, Rub or Gallop
GI: Soft, Nontender, Nondistended and Normal Bowel Sounds; Negative Organomegaly
Rectal: Deferred by Provider
Musculoskeletal: No Clubbing, No Cyanosis and No Edema
Skin: Negative Rash
Neuro: Nonfocal/Grossly Intact
Data Reviewed
-
Diagnostic Radiology: Report Reviewed by me
--- NOTE | 2023-06-03 11:00 | EDRN ---
Pt atte 100% of his breakfast. Pt had BM in BR that this RN only saw that he had had after flushing it.
--- NOTE | 2023-06-03 12:57 | EDRN ---
Pharmacy called for adderall due to 13:00.
--- NOTE | 2023-06-03 13:51 | EDRN ---
Pt has just received his lunch.
--- NOTE | 2023-06-03 16:34 | PTCARENOTE ---
pt arrived to floor from ED.
--- NOTE | 2023-06-03 18:06 | PTCARENOTE ---
Home medications (7) sent to pharmacy:Losartan Potassium 100 mg, isosorbide mononit er 30 mg, montelukast sodium 10 mg, furosimide 40 mg, cardizem 240 mg, mometason furoate nasal spray 50mg, rosuvastatin calcium 10 mg
--- NOTE | 2023-06-03 20:08 | PTCARENOTE ---
Pt c/o of 'slight' chest pain- trops peak 0.057 but are trending down. VSS. EKG- NSR. House MIDDLE SCHOOL RESOURCE TEACHER made aware.
[2023-06-04] VITALS (7 sets, daily range): BP systolic 116–147; BP diastolic 52–66; BMI 36.0
--- NOTE | 2023-06-04 06:07 | PTCARENOTE ---
Addendum entered by Ansley Roberson RN 06/04/23 06:11:
Patient's HR back in 50-60s. Telemetry strips placed in chart.
Original Note:
Patient's telemetry alarmed- Sinus Bradycardia, HR 39. Patient sitting comfortably in bed w/ no complaints. Patient has history of bradycardia. House CYBER DEFENSE FORENSICS ANALYST made aware.
[2023-06-04 06:44] LABS: % Basophils 0.1 % (0-2); % Immature Granulocytes 0.2 % (0-0.5); % Lymphocytes 3.8 % (20.5-51.1); % Monocytes 10.9 % (1.7-9.3); Absolute Lymphocytes 0.4 10^3/uL (1.2-3.4); Absolute Neutrophils 7.9 10^3/uL (1.4-6.5); Hematocrit 39.4 % (39.0-52.0); Mean Corpuscular Hgb 29.7 pg (27.0-31.0); Nucleated Red Blood Cells % 0 % (-); Red Blood Cell Count 4.38 10^6/uL (4.70-6.10); Red Cell Dist. Width 14.1 % (11.5-14.5); White Blood Cell Count 9.3 10^3/uL (4.8-10.8)
[2023-06-04 07:17] LABS: ALT (SGPT) 16 U/L (0-50); AST (SGOT) 27 U/L (17-59); Albumin 3.3 g/dl (3.5-5.0); Alkaline Phosphatase 53 U/L (38-126); Blood Urea Nitrogen 20 mg/dl (9-20); Calcium 8.7 mg/dl (8.4-10.2); Carbon Dioxide 26 mmol/L (22-30); Chloride 104 mmol/L (98-107); Estimated Creatinine Clearance 118 ml/min; Glucose 116 mg/dl (70-99); Potassium 4.3 mmol/L (3.5-5.1); Sodium 137 mmol/L (135-145); Total Bilirubin 0.3 mg/dl (0.2-1.3); Total Protein 6.1 g/dl (6.3-8.2); eGFR > 60.00
[2023-06-04] MEDS: DUONEB 3 ML INH ×4 (07:53→19:39)
[2023-06-04 08:01] LABS: Mean Platelet Volume 12.9 fL (7.4-10.4); Platelet Count 44 10^3/uL (130-400)
--- NOTE | 2023-06-04 08:15 | PN.CDI ---
CDI
- -
CDI:
Physician Documentation Request
Admit Date: 06/02/23 22:54
Dear Doctor Mono,
Please review the following and provide your response in the progress notes.
Clinical Indicators:
Laboratory Tests
06/02/23 06/03/23
17:01 05:43
Sodium 132 L 134 L
Laboratory Tests
06/04/23
05:25
Sodium 137
Based on the above, please clarify in the progress notes, the appropriate diagnosis, if significant, that supports the above abnormalities and additional evaluation, monitoring and/or treatment rendered:
Hyponatremia, POA, now resolved
Abnormal lab value, clinically insignificant
Other
Use of terms such as suspected, likely, concern for, or probable (associated with a specific diagnosis that is being evaluated, monitored, or treated as if it exists) are acceptable and can be coded in the inpatient setting, when documented at the
time of discharge.
Thank you,
Marielle Singh RN BSN CCDS
CDI Specialist
please contact via tiger text
Please use your independent medical judgment in providing your response.
--- NOTE | 2023-06-04 08:17 | PN.CDI ---
CDI
- -
CDI:
Physician Documentation Request
Admit Date: 06/02/23 22:54
Dear Doctor Mono,
Please review the following and provide your response in the progress notes.
Clinical Indicators:
ED, 06/01
#Initial VS:
Temp Pulse Resp BP Pulse Ox
102.8 F H 104 28 205/96 90
06/02/23 20:00 06/02/23 16:39 06/02/23 16:39 06/02/23 16:39 06/02/23 21:19
#Influenza A, Elevated troponin, Hypoxia, Asthma exacerbation
PN, 06/02
#Influenza infection
Based on the above and your clinical assessment, please clarify which of the following most accurately describes the status of the patient's infection:
Sepsis, POA
Viral Sepsis, POA
Localized Infection Only, Without Systemic Illness
- indicate the site/source, such as Influenza A, UTI, pneumonia etc.
Other
Sepsis
- Systemic manifestations of infection, with 2 or more SIRS criteria which include:
- Fever >100.4 degrees F or hypothermia < 96.8 degrees F
- Leukocytosis - WBC > 12,000 or leukopenia - WBC < 4,000 or > 10% bands
- Tachycardia > 90 beats per minute
- Tachypnea - RR > 20 breaths per minute or PaCO2 , 32mmHg
Source: Merck Manual 2013
- Indicate the known or suspected underlying infection, such as UTI, pneumonia or cellulitis
Severe Sepsis
- Sepsis with associated acute organ dysfunction, such as renal or respiratory failure
- Documentation should indicate the association between the sepsis and the organ dysfunction
Use of terms such as suspected, likely, concern for, or probable (associated with a specific diagnosis that is being evaluated, monitored, or treated as if it exists) are acceptable and can be coded in the inpatient setting, when documented at the
time of discharge.
Thank you,
Marielle Singh RN BSN CCDS
CDI Specialist
please contact via tiger text
Please use your independent medical judgment in providing your response.
[2023-06-04] MEDS: ADDERALL 15 MG PO ×2 (09:01→13:08)
[2023-06-04] MEDS: CARDIZEM CD 240 MG PO (09:02)
[2023-06-04] MEDS: COZAAR 100 MG PO (09:03)
[2023-06-04] MEDS: DECADRON 4 MG IV ×2 (09:04→16:38)
[2023-06-04] MEDS: CRESTOR 10 MG PO (09:04)
[2023-06-04] MEDS: IMDUR (EXTENDED RELEASE) 60 MG PO (09:06)
[2023-06-04] MEDS: SINGULAIR 10 MG PO (09:06)
[2023-06-04] MEDS: FLUSH (NSS) 2 FLUSH IV (09:06)
--- NOTE | 2023-06-04 10:50 | CM ---
Addendum entered by Maria E Clay RN 06/04/23 15:44:
IMM signed and placed on chart.
Original Note:
Reviewed the chart notes and spoke with the patient at the bedside. The patient is homeless, but has been renting a car from [employer] while his truck is in repair in [place]. Per patient, no DME/VN in past, but has been to [facility] in
the past. The patient has used the services of [employer] for assistance with paying for auto rental and housing. Patient requested CM call Juan Pablo Mcgraw with [facility] ([phone]). CM spoke with Juan Pablo Mcgraw and relayed the
message that the patient was looking for help with paying rent on his rental care. Per Juan Pablo, they had helped him last week. Juan Pablo will reach out to the patient personally. CM continues to be available to patient/family and is monitoring medical
plan for needs at discharge.
Plan: Discharge to his car, which is in the parking lot, when medically stable.
--- NOTE | 2023-06-04 12:24 | W.PN.HOSP.TC ---
Today's Communication/Plan
-
see plan
Assessment / Plan
Assessment / Plan
ASSESSMENT & PLAN
viral sepsis POA 2/2Influenza infection
Feeling unwell for > seems 48hrs
- supportive care
- No indication for Oseltamivir
RESOLVED w supportive care
suspect Asthmatic bronchitis by influenza with broncho spasm on exam
HX COPD/Asthma
- IV Decadron
- DuoNeb qid and PRN
- O2 to keep POx > 94
- cont. CORPORATE TUTOR Montelukast
- ABG with any change of MS
hyponatremia POA
resolved with supportive care
Elevated POS TPNI
No CP , nl EKG
HX Non obstructed CAD / Coronary Vasospasm
HLD
- Trend TPNI
- cont. CORPORATE TUTOR IMN, and Rosuvastatin
- felt non mi troponin elevation 2/2 influenza infection
HX CHF - recent LVEF 60-65
Mild aortic stenosis.
- Not in acute HF
- cont CORPORATE TUTOR Furosemide, BB, IMN
Thrombocytopenia unclear cause
HX Splenectomy - usually associated with Thrombocytosis not Thrombocytopenia
- No active bleed
- trend Plt
Essential hypertension
-on Losartan and Diltiazem
Obesity due to excess calories
- Affects all aspects of care.
- Encourage healthy diet and activity as tolerated for goal of weight loss.
Homelessness
Lives in the car
- CRM consult
Anticipated Discharge: 24 - 48 hours
Subjective/Interval History
-
Date of Service: June 04, 2023
pt states that wheezing is still persistent but slight improvement from admit
Objective Data
-
Labs:
Laboratory Results
06/04/23
05:25
WBC 9.3
Hgb 13.0
Hct 39.4
Plt Count 44 L D
Sodium 137
Potassium 4.3
Chloride 104
Carbon Dioxide 26
BUN 20
Creatinine 0.8
Glucose 116 H
Calcium 8.7
Total Bilirubin 0.3
AST 27
ALT 16
Alkaline Phosphatase 53
Vital Signs:
Vital Signs
Temp Pulse Resp BP Pulse Ox
98 F 60 16 136/55 93
06/04/23 11:02 06/04/23 11:02 06/04/23 11:02 06/04/23 11:02 06/04/23 11:02
I&O
06/03/23 06/04/23 06/05/23
06:59 06:59 06:59
Intake Total 1400 / 1400
Output Total 1250 / 1250 3950 / 3950
Balance -1250 / -1250 -2550 / -2550
Review of Systems
-
History Source: Patient
All other systems: Reviewed and negative
Physical Exam
-
General: Well Developed and No Apparent Distress
HEENT: Normocephalic, Atraumatic and Moist Mucous Membranes
Respiratory: Wheezes
Cardiac: Regular Rhythm and S1/S2; Negative Murmur, Rub or Gallop
GI: Soft, Nontender, Nondistended and Normal Bowel Sounds; Negative Organomegaly
Rectal: Deferred by Provider
Musculoskeletal: No Clubbing, No Cyanosis and No Edema
Skin: Negative Rash
Neuro: Nonfocal/Grossly Intact
Data Reviewed
-
Labs: Labs Reviewed by me
--- NOTE | 2023-06-04 14:25 | PTCARENOTE ---
Patient c/o feeling more tired today. Patient ambulates to the bathroom with supervision, gait is steady. Patient is tolerating 100% of meals. Patient concerned he needs Lasix. PRN Lasix is ordered for weight gain of 3lbs. Patient has lost weight
overnight. Patient's weight, fluid restriction and Lasix order discussed with patient.
[2023-06-04] MEDS: LASIX 40 MG PO (16:41)
[2023-06-05] MEDS: DECADRON 4 MG IV ×2 (00:14→20:34)
[2023-06-05 03:24] VITALS: BP 133/69
[2023-06-05 04:56] LABS: % Basophils 0.1 % (0-2); % Immature Granulocytes 0.4 % (0-0.5); % Lymphocytes 4.4 % (20.5-51.1); % Monocytes 5.6 % (1.7-9.3); % Neutrophils 89.5 % (42.2-75.2); Absolute Lymphocytes 0.4 10^3/uL (1.2-3.4); Absolute Monocytes 0.5 10^3/uL (0.1-0.6); Absolute Neutrophils 7.7 10^3/uL (1.4-6.5); Hematocrit 40.5 % (39.0-52.0); Hemoglobin 13.5 g/dL (13.0-18.0); Mean Corp Hgb Conc. 33.3 g/dL (33.0-37.0); Mean Corpuscular Hgb 29.9 pg (27.0-31.0); Mean Corpuscular Volume 89.6 fL (80.0-94.0); Mean Platelet Volume 13.7 fL (7.4-10.4); Nucleated Red Blood Cells % 0 % (-); Platelet Count 56 10^3/uL (130-400); Red Blood Cell Count 4.52 10^6/uL (4.70-6.10); Red Cell Dist. Width 14.4 % (11.5-14.5); White Blood Cell Count 8.6 10^3/uL (4.8-10.8)
[2023-06-05 05:31] LABS: ALT (SGPT) 22 U/L (0-50); AST (SGOT) 35 U/L (17-59); Albumin 3.5 g/dl (3.5-5.0); Alkaline Phosphatase 55 U/L (38-126); Blood Urea Nitrogen 28 mg/dl (9-20); Calcium 8.9 mg/dl (8.4-10.2); Carbon Dioxide 32 mmol/L (22-30); Chloride 100 mmol/L (98-107); Estimated Creatinine Clearance 105 ml/min; Glucose 123 mg/dl (70-99); Potassium 4.6 mmol/L (3.5-5.1); Sodium 137 mmol/L (135-145); Total Bilirubin 0.3 mg/dl (0.2-1.3); Total Protein 6.5 g/dl (6.3-8.2); eGFR > 60.00
[2023-06-05 06:00] VITALS: BMI 36.3
[2023-06-05 07:40] VITALS: BP 132/62
[2023-06-05] MEDS: DUONEB 3 ML INH ×4 (07:59→19:43)
--- NOTE | 2023-06-05 08:09 | W.PN.HOSP.TC ---
Addendum entered and electronically signed by Justo Orourke MD 06/05/23 12:33:
Nonischemic myocardial injury and acute illness
Original Note:
Today's Communication/Plan
-
Need to check with case management as to a discharge disposition is living in his car and see how viable he is to orange picking supervisor prescriptions
He will need a steroid taper on discharge May still need oxygen
Once closer to discharge we will do home oxygen screen
Send sputum for C&S
Assessment / Plan
Assessment / Plan
ASSESSMENT & PLAN
viral sepsis POA 2/2Influenza infection
Feeling unwell for > seems 48hrs
- supportive care
- No indication for Oseltamivir
-Continue oxygen, nebulizers, Taper IV steroid
RESOLVED w supportive care
suspect Asthmatic bronchitis by influenza with broncho spasm on exam
HX COPD/Asthma
- IV Decadron to every 12 hours today
- DuoNeb qid and PRN
- O2 to keep POx > 94
- cont. ASSISTANT TENNIS PROFESSIONAL Montelukast
- ABG with any change of MS
hyponatremia POA
resolved with supportive care
Elevated POS TPNI
No CP , nl EKG
HX Non obstructed CAD / Coronary Vasospasm
HLD
- Trend TPNI
- cont. ASSISTANT TENNIS PROFESSIONAL IMN, and Rosuvastatin
- felt non mi troponin elevation 2/2 influenza infection
HX CHF - recent LVEF 60-65
Mild aortic stenosis.
- Not in acute HF
- cont ASSISTANT TENNIS PROFESSIONAL Furosemide, BB, IMN
Thrombocytopenia unclear cause
HX Splenectomy - usually associated with Thrombocytosis not Thrombocytopenia
- No active bleed
- trend Plt
Essential hypertension
-on Losartan and Diltiazem
Obesity due to excess calories
- Affects all aspects of care.
- Encourage healthy diet and activity as tolerated for goal of weight loss.
Homelessness
Lives in the car
- CRM consult
Anticipated Discharge: Within 24 hours
Subjective/Interval History
-
Date of Service: June 05, 2023
Coughing up greenish sputum that is thick and tenacious continues to have wheezing overall feels better remains on 3 L of oxygen
Objective Data
-
Labs:
Laboratory Results
06/05/23
04:13
WBC 8.6
Hgb 13.5
Hct 40.5
Plt Count 56 L D
Sodium 137
Potassium 4.6
Chloride 100
Carbon Dioxide 32 H
BUN 28 H
Creatinine 0.9
Glucose 123 H
Calcium 8.9
Total Bilirubin 0.3
AST 35
ALT 22
Alkaline Phosphatase 55
Vital Signs:
Vital Signs
Temp Pulse Resp BP Pulse Ox
97.4 F 76 18 132/62 94
06/05/23 07:40 06/05/23 08:01 06/05/23 08:01 06/05/23 07:40 06/05/23 08:01
I&O
06/04/23 06/05/23 06/06/23
06:59 06:59 06:59
Intake Total 1400 / 1400 1770 / 1770
Output Total 3950 / 3950 3275 / 3275
Balance -2550 / -2550 -1505 / -1505
Review of Systems
-
History Source: Patient
All other systems: Not reviewed unless documented
Respiratory: Reports Cough and Wheezing
Physical Exam
-
General: Well Developed
HEENT: Normocephalic
Respiratory: Wheezes and Decreased Breath Sounds
Cardiac: Regular Rhythm
Data Reviewed
-
Total Time Spent with Patient (in minutes): 56
Labs: Labs Reviewed by me
[2023-06-05] MEDS: CARDIZEM CD 240 MG PO (08:30)
[2023-06-05] MEDS: DECADRON IV (08:30)
[2023-06-05] MEDS: COZAAR 100 MG PO (08:31)
[2023-06-05] MEDS: SINGULAIR 10 MG PO (08:31)
[2023-06-05] MEDS: CRESTOR 10 MG PO (08:31)
[2023-06-05] MEDS: IMDUR (EXTENDED RELEASE) 60 MG PO (08:31)
[2023-06-05] MEDS: ADDERALL 15 MG PO ×2 (08:31→14:00)
[2023-06-05] MEDS: LASIX 40 MG PO (08:34)
--- NOTE | 2023-06-05 09:02 | PN.CDI ---
CDI
- -
CDI:
Physician Documentation Request
Admit Date: 06/02/23 22:54
Dear Doctor Sharad,
Please review the following and provide your response in the progress notes.
Due to conflicting documentation, please clarify the etiology of the elevated troponins....
Clinical Indicators:
Cardiology consult, 06/02
#Abnormal troponin, non-ischemic myocardial injury in the setting of acute illness
#-Chest pain free
#-EKG stable
#-Peak 0.057 (last night)
PN, 06/04
#Elevated POS TPNI
#- felt non mi troponin elevation /2 influenza infection
Based on the above, please clarify in the progress notes, the appropriate diagnosis, if significant, that supports the above abnormalities and additional evaluation, monitoring and/or treatment rendered:
Non ischemic myocardial injury
Abnormal lab value, clinically insignificant
Other
Use of terms such as suspected, likely, concern for, or probable (associated with a specific diagnosis that is being evaluated, monitored, or treated as if it exists) are acceptable and can be coded in the inpatient setting, when documented at the
time of discharge.
Thank you,
Marielle Singh RN BSN CCDS
CDI Specialist
please contact via tiger text
Please use your independent medical judgment in providing your response.
[2023-06-05 11:34] VITALS: BP 118/60
[2023-06-05 15:57] VITALS: BP 103/57
--- NOTE | 2023-06-05 16:03 | CM ---
Reviewed the chart notes and spoke with the patient from doorway. Patient inquired about phone call CM made yesterday on behalf of the patient to Mr. Mcgraw with [facility]. Informed patient that they will be in touch with him regarding
covering cost of car rental this week. They covered last weeks costs. Directed patient to reach out directly with Mr. Mcgraw for further discussions. CM continues to be available to patient/family and is monitoring medical plan for needs at
discharge.
Plan: Discharge to street when medically stable.
[2023-06-05 19:44] VITALS: BP 105/60
[2023-06-05 23:14] VITALS: BP 124/65
[2023-06-06 03:15] VITALS: BMI 35.9
[2023-06-06 04:58] LABS: Hematocrit 38.7 % (39.0-52.0); Hemoglobin 13.1 g/dL (13.0-18.0); Mean Corp Hgb Conc. 33.9 g/dL (33.0-37.0); Mean Corpuscular Hgb 29.8 pg (27.0-31.0); Mean Platelet Volume 13.5 fL (7.4-10.4); Platelet Count 61 10^3/uL (130-400); Red Cell Dist. Width 14.2 % (11.5-14.5); White Blood Cell Count 5.8 10^3/uL (4.8-10.8)
[2023-06-06 05:17] LABS: Blood Urea Nitrogen 28 mg/dl (9-20); Calcium 8.7 mg/dl (8.4-10.2); Carbon Dioxide 33 mmol/L (22-30); Chloride 97 mmol/L (98-107); Estimated Creatinine Clearance 105 ml/min; Glucose 131 mg/dl (70-99); Potassium 4.5 mmol/L (3.5-5.1); Sodium 136 mmol/L (135-145); eGFR > 60.00
[2023-06-06] MEDS: DUONEB 3 ML INH ×5 (05:50→19:43)
[2023-06-06 08:21] VITALS: BP 132/68
--- NOTE | 2023-06-06 08:25 | W.PN.HOSP.TC ---
Today's Communication/Plan
-
Ideally would try for discharge tomorrow after starting its prednisone taper today
-Logistics of this home with been going back to the car and getting proper nebulizer therapy that may be warranted will be difficult
Assessment / Plan
Assessment / Plan
ASSESSMENT & PLAN
viral sepsis POA 2/2Influenza infection
Feeling unwell for > seems 48hrs
- supportive care
- No indication for Oseltamivir
-Continue oxygen, nebulizers, Taper IV steroid transition to prednisone taper
RESOLVED w supportive care
suspect Asthmatic bronchitis by influenza with broncho spasm on exam
HX COPD/Asthma
- IV Decadron to every 12 hours today transition attempt prednisone taper today
- DuoNeb qid and PRN
- O2 to keep POx > 94
- cont. INSPECTOR SUBASSEMBLIES Montelukast
- ABG with any change of MS
hyponatremia POA
resolved with supportive care
Elevated POS TPNI
No CP , nl EKG
HX Non obstructed CAD / Coronary Vasospasm
HLD
- Trend TPNI
- cont. INSPECTOR SUBASSEMBLIES IMN, and Rosuvastatin
- felt non mi troponin elevation 2/2 influenza infection
HX CHF - recent LVEF 60-65
Mild aortic stenosis.
- Not in acute HF
- cont INSPECTOR SUBASSEMBLIES Furosemide, BB, IMN
Thrombocytopenia unclear cause
HX Splenectomy - usually associated with Thrombocytosis not Thrombocytopenia
- No active bleed
- trend Plt
Essential hypertension
-on Losartan and Diltiazem
Obesity due to excess calories
- Affects all aspects of care.
- Encourage healthy diet and activity as tolerated for goal of weight loss.
Homelessness
Lives in the car
- CRM consult
Anticipated Discharge: Within 24 hours
Subjective/Interval History
-
Date of Service: June 06, 2023
Still with a lot of congestion and bronchospasm remains on oxygen
Objective Data
-
Labs:
Laboratory Results
06/06/23
04:33
WBC 5.8
Hgb 13.1
Hct 38.7 L
Plt Count 61 L
Sodium 136
Potassium 4.5
Chloride 97 L
Carbon Dioxide 33 H
BUN 28 H
Creatinine 0.9
Glucose 131 H
Calcium 8.7
Vital Signs:
Vital Signs
Temp Pulse Resp BP Pulse Ox
97.8 F 62 16 132/68 92
06/06/23 08:21 06/06/23 08:21 06/06/23 08:21 06/06/23 08:21 06/06/23 08:21
I&O
06/05/23 06/06/23 06/07/23
06:59 06:59 06:59
Intake Total 1770 / 1770 3255 / 3255
Output Total 3275 / 3275 1700 / 1700
Balance -1505 / -1505 1555 / 1555
Review of Systems
-
All other systems: Not reviewed unless documented
Respiratory: Reports Cough and Wheezing
Cardiac: Reports No Symptoms
Abdomen/GI: Reports No Symptoms
Physical Exam
-
General: Well Developed
HEENT: Normocephalic
Respiratory: Wheezes and Rhonchi
Cardiac: Regular Rhythm
GI: Soft
Neuro: Awake, Alert and Oriented
Psych: Calm
Data Reviewed
-
Total Time Spent with Patient (in minutes): 567
Labs: Labs Reviewed by me
[2023-06-06] MEDS: DELTASONE 40 MG PO (08:49)
[2023-06-06] MEDS: LASIX 40 MG PO (08:50)
[2023-06-06] MEDS: CARDIZEM CD 240 MG PO (08:50)
[2023-06-06] MEDS: ADDERALL 15 MG PO ×2 (08:50→13:14)
[2023-06-06] MEDS: SINGULAIR 10 MG PO (08:50)
[2023-06-06] MEDS: CRESTOR 10 MG PO (08:50)
[2023-06-06] MEDS: IMDUR (EXTENDED RELEASE) 60 MG PO (08:50)
[2023-06-06] MEDS: DECADRON IV (08:51)
[2023-06-06] MEDS: COZAAR 100 MG PO (08:51)
[2023-06-06 15:03] VITALS: BP 121/59
[2023-06-06] MEDS: SYMBICORT 160/4.5 MCG INHALER 2 PUFF INH (19:43)
[2023-06-06 21:19] VITALS: BP 118/59
[2023-06-06 23:29] VITALS: BP 121/64
[2023-06-07 06:00] VITALS: BMI 35.7
[2023-06-07 08:00] VITALS: BP 109/57
[2023-06-07] MEDS: SYMBICORT 160/4.5 MCG INHALER 2 PUFF INH ×2 (08:03→20:18)
[2023-06-07] MEDS: DUONEB 3 ML INH ×4 (08:03→20:22)
--- NOTE | 2023-06-07 08:34 | W.PN.HOSP.TC ---
Today's Communication/Plan
-
Will try for a discharge plan within the next 24 hours
Home oxygen screen now
Continue Symbicort on discharge along with a albuterol rescue inhaler
Hopefully will not require oxygen as this will preclude him going to his car as he is homeless
Assessment / Plan
Assessment / Plan
ASSESSMENT & PLAN
viral sepsis POA 2/2Influenza infection
Feeling unwell for > seems 48hrs
- supportive care
- No indication for Oseltamivir
-Continue oxygen, nebulizers, Taper IV steroid transition to prednisone taper
RESOLVED w supportive care
suspect Asthmatic bronchitis by influenza with broncho spasm on exam
HX COPD/Asthma
- IV Decadron to every 12 hours today transition attempt prednisone taper today
- DuoNeb qid and PRN
- O2 to keep POx > 94
- cont. EMPLOYEE BENEFITS ADMINISTRATOR Montelukast
- ABG with any change of MS
hyponatremia POA
resolved with supportive care
Elevated POS TPNI
No CP , nl EKG
HX Non obstructed CAD / Coronary Vasospasm
HLD
- Trend TPNI
- cont. EMPLOYEE BENEFITS ADMINISTRATOR IMN, and Rosuvastatin
- felt non mi troponin elevation 2/2 influenza infection
HX CHF - recent LVEF 60-65
Mild aortic stenosis.
- Not in acute HF
- cont EMPLOYEE BENEFITS ADMINISTRATOR Furosemide, BB, IMN
Thrombocytopenia unclear cause
HX Splenectomy - usually associated with Thrombocytosis not Thrombocytopenia
- No active bleed
- trend Plt
Essential hypertension
-on Losartan and Diltiazem
Obesity due to excess calories
- Affects all aspects of care.
- Encourage healthy diet and activity as tolerated for goal of weight loss.
Homelessness
Lives in the car
- CRM consult
Anticipated Discharge: Within 24 hours
Subjective/Interval History
-
Date of Service: June 07, 2023
Seems to be off oxygen unclear whether it was rechecked as far as pulse ox looks comfortable otherwise not overly dyspneic and no outward bronchospasm
Objective Data
-
Vital Signs:
Vital Signs
Temp Pulse Resp BP Pulse Ox
98.4 F 60 18 121/64 93
06/06/23 23:29 06/07/23 08:06 06/07/23 08:06 06/06/23 23:29 06/07/23 08:06
I&O
06/06/23 06/07/23 06/08/23
06:59 06:59 06:59
Intake Total 3255 / 3255 1970 / 1970
Output Total 1700 / 1700 1310 / 1310
Balance 1555 / 1555 660 / 660
Physical Exam
-
HEENT: Normocephalic
Respiratory: Wheezes and Rhonchi
Data Reviewed
-
Total Time Spent with Patient (in minutes): 56
Labs: Labs Reviewed by me
[2023-06-07 09:20] VITALS: BP 131/74
[2023-06-07] MEDS: CRESTOR 10 MG PO (09:22)
[2023-06-07] MEDS: ADDERALL 15 MG PO ×2 (09:22→14:08)
[2023-06-07] MEDS: SINGULAIR 10 MG PO (09:22)
[2023-06-07] MEDS: DELTASONE 40 MG PO (09:22)
[2023-06-07] MEDS: CARDIZEM CD 240 MG PO (09:22)
[2023-06-07] MEDS: COZAAR 100 MG PO (09:22)
[2023-06-07] MEDS: IMDUR (EXTENDED RELEASE) 60 MG PO (09:23)
[2023-06-07 14:18] VITALS: BP 129/61
[2023-06-07] MEDS: LASIX 40 MG PO (14:19)
[2023-06-07 15:45] VITALS: BP 150/77
--- NOTE | 2023-06-07 16:04 | CM ---
Reviewed the chart notes and spoke with the patient at the bedside. IMM signed and placed on the chart. CM continues to be available to patient/family and is monitoring medical plan for needs at discharge.
Plan: Discharge to patient's car. No additional needs identified at this time. Patient on room air per notes.
[2023-06-07 23:45] VITALS: BP 128/74
[2023-06-08 06:00] VITALS: BMI 34.9
[2023-06-08] MEDS: DUONEB 3 ML INH ×2 (07:27→11:08)
[2023-06-08] MEDS: SYMBICORT 160/4.5 MCG INHALER 2 PUFF INH (07:27)
[2023-06-08 07:50] VITALS: BP 126/52
--- NOTE | 2023-06-08 08:04 | W.DS.TRANS ---
DC Summary - Pathologist
-
Discharge Instructions:
Discharge Diagnosis/Procedures Viral sepsis present on admission secondary to
influenza infection
Asthmatic bronchitis
COPD by history
Thrombocytopenia of unclear cause
Diet As tolerated
Activity No restrictions
Driving Restrictions As prior to admission
Instructions:
Stand-Alone Forms:
Changes to Home Medications: Yes
Discharge Medications:
DC Medications w/original date entered in [facility]
mometasone 50 mcg/actuation nasal spray 2 spray intranasal BID PRN allergy symptoms #17 grams 07/16/22
montelukast 10 mg tablet 10 mg PO DAILY Allergies 12/23/22
diltiazem HCl 240 mg capsule,extended release 24 hr 240 mg PO DAILY #0 caps 01/11/23
acetaminophen 500 mg tablet (Acetaminophen Extra Strength) 1,000 mg PO HSPRN PRN mild pain 04/10/23
dextroamphetamine-amphetamine 15 mg tablet 15 mg PO BID ADHD 04/10/23
furosemide 40 mg tablet 40 mg PO DAILY PRN weight gain (3lbs)/edema 04/10/23
isosorbide mononitrate 60 mg tablet,extended release 24 hr 60 mg PO DAILY #30 tabs 04/12/23
losartan 100 mg tablet 100 mg PO DAILY 06/02/23
rosuvastatin 10 mg tablet (Crestor) 10 mg PO DAILY 06/02/23
albuterol sulfate 90 mcg/actuation breath activated powder inhaler,sensor (Proair Digihaler) 90 mcg inhalation Q6H PRN shortness of breath or wheezing #1 ea 06/08/23
budesonide-formoterol HFA 160 mcg-4.5 mcg/actuation aerosol inhaler (Symbicort) 2 puff inhalation R BID Anti-inflammatory #1 g 06/08/23
prednisone 10 mg tablet See Rx Instructions .Route .COMPLEX Anti-inflammatory #30 tabs 06/08/23
Home Medication Changes
albuterol sulfate 90 mcg/actuation breath activated powder inhaler,sensor (Proair Digihaler) 90 mcg inhalation Q6H PRN shortness of breath or wheezing #1 ea 06/08/23
budesonide-formoterol HFA 160 mcg-4.5 mcg/actuation aerosol inhaler (Symbicort) 2 puff inhalation R BID Anti-inflammatory #1 g 06/08/23
prednisone 10 mg tablet See Rx Instructions .Route .COMPLEX Anti-inflammatory #30 tabs 06/08/23
Pending Results: No
[2023-06-08] MEDS: CARDIZEM CD 240 MG PO (09:32)
[2023-06-08] MEDS: DELTASONE 40 MG PO (09:32)
[2023-06-08] MEDS: COZAAR 100 MG PO (09:32)
[2023-06-08] MEDS: ADDERALL 15 MG PO ×2 (09:32→13:04)
[2023-06-08] MEDS: CRESTOR 10 MG PO (09:33)
[2023-06-08] MEDS: SINGULAIR 10 MG PO (09:33)
[2023-06-08] MEDS: IMDUR (EXTENDED RELEASE) 60 MG PO (09:33)
--- NOTE | 2023-06-08 10:49 | W.DCSUMMARY ---
Discharge Summary
Discharge Data
Date of Admission: 06/02/23
Date of Discharge: 06/08/23
-
Pending Results: No
Hospital Course
68M Homeless, Obesity HX CHF, Asthma/ COPD, HTN, Non-Obstructive CAD, HX splencetomy , chr thrombocytopenia pw SOB
Associatted fever and chills , MATUTE and dizziness.
States he had been feeling unwell for last at least 48 hours he tested positive for influenza infection and met criteria for sepsis and was admitted there is no indication for Tamiflu on his presentation based on length of symptoms
A CTA of the chest showed no acute disease no evidence of any pulmonary emboli placement was placed on supportive management
He has significant presentation also of asthmatic bronchitis which seem to be his most overriding presentation and symptom and he gained benefit from IV Decadron DuoNeb therapy oxygen as needed he was continued on his prior dosing of Singulair and
we added a Symbicort inhaler at time of discharge. He was noted to have a persisting thrombocytopenia which is unclear because as the patient has a history of a splenectomy but if anything that should cause thrombocytosis and not thrombocytopenia
he had no active bleeding throughout the course of his admission and his platelets although diminished had plateaued and stable.
A 2D echocardiogram was also performed noting a 65% EF with a concentric left ventricular hypertrophy and mild AAS with a aortic valve area of over 140/22 mmHg and left ventricular outflow tract diameter 1.9 cm it was mildly elevated PASP of 38
Of note the patient is homeless and basically living in his car which prompted a further delay in his discharge plan it was as it would not be ideal to send him home on nebulizer therapy given lack of access nonetheless he is improved he is
Significantly less bronchospasm of the above regime his steroid IV steroids were transition to a prednisone taper over the next week and a half and we called in prescriptions for that and his Symbicort inhaler and rescue inhaler in the form of
albuterol to continue his prior medication management without change otherwise including his Singulair rosuvastatin losartan and diltiazem.
Discharge diagnosis will be presentation of viral sepsis in relation influenza
Acute asthmatic bronchitis
Thrombocytopenia unclear etiology
Essential hypertension
Discharge Plan
-
Patient Disposition: Home (Routine Discharge)
Discharge Diagnosis/Procedures: Viral sepsis present on admission secondary to influenza infection
Asthmatic bronchitis
COPD by history
Thrombocytopenia of unclear cause
Diet: As tolerated
Activity: No restrictions
Driving Restrictions: As prior to admission
Referrals:
Nando Agustin, DO [Family Provider] - in less than 1 week
Prescriptions:
New
budesonide-formoterol [Symbicort] 160-4.5 mcg/actuation Hfa Aerosol Inhaler
2 puff inhalation R BID Qty: 1 0RF
Proair Digihaler 90 mcg/actuation aero powdr breath act w/sensor
90 mcg inhalation Q6H PRN (Reason: shortness of breath or wheezing) Qty: 1 0RF
prednisone 10 mg Tablet
See Rx Instructions .ROUTE .COMPLEX Qty: 30 0RF
Rx Instructions:
Take By Mouth:
40 mg daily x3 days, 30 mg daily x3 days,
20 mg daily x3 days, 10 mg daily x3 days.
Continued
mometasone 50 mcg/actuation spray,non-aerosol
2 spray intranasal BID PRN (Reason: allergy symptoms) Qty: 17 0RF
montelukast 10 mg tablet
10 mg PO DAILY
diltiazem HCl 240 mg Capsule,Extended Release 24hr
240 mg PO DAILY Qty: 0 0RF
furosemide 40 mg tablet
40 mg PO DAILY PRN (Reason: weight gain (3lbs)/edema)
acetaminophen [Acetaminophen Extra Strength] 500 mg tablet
1,000 mg PO HSPRN PRN (Reason: mild pain)
dextroamphetamine-amphetamine 15 MG tablet
15 mg PO BID
Patient Comments:
04/10/2023, pt. filled this med. on 03/20/2023 for 90 tablets according to PDMP.
isosorbide mononitrate 60 mg Tablet Extended Release 24 Hr
60 mg PO DAILY Qty: 30 0RF
losartan 100 mg Tablet
100 mg PO DAILY
rosuvastatin [Crestor] 10 mg Tablet
10 mg PO DAILY
Discharge Orders:
Discharge Patient (As Directed); Ordered 06/08/23
Ordered By: Justo Orourke
Discharge Date and Time
Discharge Date/Time: 06/08/23 14:45
Print Language: TAMAZIGHT
[2023-06-08 14:30] VITALS: BP 126/68
[2023-06-08] MEDS: DUONEB INH (14:34)
== END 2023-06-08 14:45 | disposition home or self-care (01) | DRG 872 ==
LOC: 2 NORTH 22:54
PROVIDERS: Clinical Nurse Specialist Family Health; Emergency Medicine; Internal Medicine; Nurse Practitioner Gerontology; ADMITTING PHYSICIAN Internal Medicine; ATTENDING PHYSICIAN Internal Medicine; CONSULT PHYSICIAN Internal Medicine Cardiovascular Disease; EMERGENCY PHYSICIAN Emergency Medicine; FAMILY PHYSICIAN Family Medicine
DX: A41.89 Other specified sepsis (principal); Z59.02 Unsheltered homelessness; J45.901 Unspecified asthma with (acute) exacerbation; I5A Non-ischemic myocardial injury (non-traumatic); E87.1 Hypo-osmolality and hyponatremia; I50.32 Chronic diastolic (congestive) heart failure; J10.1 Influenza due to other identified influenza virus with other respiratory manifestations; E78.5 Hyperlipidemia, unspecified; I25.10 Atherosclerotic heart disease of native coronary artery without angina pectoris; I11.0 Hypertensive heart disease with heart failure; E66.09 Other obesity due to excess calories; D69.6 Thrombocytopenia, unspecified; Q98.4 Klinefelter syndrome, unspecified; Z91.148 Patient's other noncompliance with medication regimen for other reason; Z68.34 Body mass index [BMI] 34.0-34.9, adult
CPT/HCPCS: 71046; 80048; 80053; 83605; 83880; 84484; 85025; 85027; 87040; 87070; 87077; 87205; 87502; 87811; 90662; 93005; 94640; 96374; 99285; G0008

== ENCOUNTER 2023-08-11 21:20 | Emergency (ER) | payer MEDICARE, SELFPAY ==
[2023-08-11 21:22] VITALS: BP 164/84
[2023-08-11 21:45] LABS: % Eosinophils 6.9 % (0-6); % Immature Granulocytes 0.2 % (0-0.5); % Lymphocytes 17.2 % (20.5-51.1); % Monocytes 13.7 % (1.7-9.3); Absolute Basophils 0.1 10^3/uL (0-0.2); Absolute Eosinophils 0.6 10^3/uL (0-0.7); Absolute Lymphocytes 1.4 10^3/uL (1.2-3.4); Absolute Monocytes 1.1 10^3/uL (0.1-0.6); Hematocrit 39.1 % (39.0-52.0); Hemoglobin 13.5 g/dL (13.0-18.0); Mean Corp Hgb Conc. 34.5 g/dL (33.0-37.0); Mean Corpuscular Hgb 30.3 pg (27.0-31.0); Mean Corpuscular Volume 87.7 fL (80.0-94.0); Mean Platelet Volume 10.8 fL (7.4-10.4); Nucleated Red Blood Cells % 0.2 % (-); Platelet Count 128 10^3/uL (130-400); Red Blood Cell Count 4.46 10^6/uL (4.70-6.10); Red Cell Dist. Width 14.9 % (11.5-14.5); White Blood Cell Count 8.2 10^3/uL (4.8-10.8)
[2023-08-11 22:02] LABS: ALT (SGPT) 15 U/L (0-50); AST (SGOT) 28 U/L (17-59); Alkaline Phosphatase 68 U/L (38-126); Blood Urea Nitrogen 18 mg/dl (9-20); Calcium 9.3 mg/dl (8.4-10.2); Carbon Dioxide 26 mmol/L (22-30); Chloride 104 mmol/L (98-107); Glucose 112 mg/dl (70-99); Potassium 3.8 mmol/L (3.5-5.1); Sodium 139 mmol/L (135-145); Total Bilirubin 1.1 mg/dl (0.2-1.3); Total Protein 7.2 g/dl (6.3-8.2); eGFR > 60.00
[2023-08-11 22:09] LABS: NT-proBNP 103 pg/ml; Troponin I < 0.012 ng/ml
[2023-08-11 23:03] VITALS: BP 147/76; BMI 38.8
[2023-08-12 00:09] VITALS: BP 158/86
--- NOTE | 2023-08-12 00:10 | ED.GENMED ---
History of Present Illness
General
Chief Complaint: Swelling
Source: patient and previous hospital records (Previous hospitalizations, most recently June 01 to June 07 for treatment of acute influenza URI with exacerbation of asthma.)
Exam Limitations: none
Time Seen by Provider: 08/11/23 23:07
Nursing documentation reviewed up to this point in time: agreed with
Travel History
Have you had any contact with someone who has COVID-19?: No
Do you have any symptoms of coronavirus? Fever > 100 degrees, chills, cough, shortness of breath, sore throat, loss of taste or smell, muscle aches, or headache?: No
History of Present Illness
History of Present Illness:
This is a 68-year-old chronically homeless gentleman who has history of COPD/asthma, hypertension, nonobstructive CAD, chronic mild thrombocytopenia who was last hospitalized here June 01 June 07 for treatment of exacerbation of asthma related to
acute influenza.
He does have history of nonobstructive CAD, history of non-STEMI December 2022. Cardiac catheterization at that time showed nonobstructive CAD and non-STEMI thought to be coronary spasm in nature and at that time patient started on nitrates, calcium
channel blockers. He was also prescribed Lasix 40 mg for as needed weight gain.
He presents with several week history of bilateral lower extremity edema, progressive in nature. He has been walking more as recommended by his bracelet former, Dr. Briggs, whom he saw just 2-3 weeks ago for routine follow-up.
He denies shortness of breath, denies dyspnea on exertion but has been having brief intermittent episodes of chest pain lasting a second or 2, sporadic over the past several days.
He does admit to somewhat similar lower extremity edema but quite sometime ago and has used compression stockings a number of years ago.
He complains of bilateral lower extremity pain, aching in nature that is worse with ambulation.
He had no recent change in medications other than an increased dose of Crestor from 10 mg to 20 mg several weeks ago. He is concerned that this increased dose of Crestor is cause for his lower extremity edema.
Echocardiogram in April of this year showed EF of 60 to 65%, moderate concentric LVH, mild aortic stenosis, trace tricuspid regurgitation and mildly elevated PASP.
CTA of the chest April of this year showed no acute disease in the chest, negative for PE.
Past History
Past History
ED Past Medical History: Asthma, CHF, HTN and Other (Klinefelter, obesity, leg edema)
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 )
Social History
Tobacco: Non-smoker (Unknown)
Alcohol: None (Unknown)
Drug: Narcotics
Personal:
Living: alone
Phy Exam
Physical Exam
Physical Exam:
GENERAL: 68-year-old gentleman appears his stated age, awake and alert, pleasant, appears in no acute distress.
EYE: anicteric
NECK: Supple, nontender, no meningismus, no significant adenopathy. Minimal JVD.
ENT: oral mucosa is moist. TM clear b/l, nares patent.
CARDIAC: Regular rate and rhythm. 2/6 holosystolic murmur at left sternal border.
LUNGS: no acute respiratory distress, scattered expiratory wheezing bilaterally. No rales or rhonchi.
ABDOMEN: Rotund, soft, nondistended, without focal tenderness, no r/g, no cvat. normoactive BS.
NEUROLOGICAL: Alert and oriented x3, no focal neuro deficits. G
SKIN: Warm and dry, normal color, skin intact. There is mild brawniness and mild skin thickening bilateral lower legs with mild local tenderness to palpation. No palpable heat. No lymphangitis, no ulcerations.
MUSCULOSKELETAL: There is moderate nonpitting edema bilateral lower legs primarily of the mid to upper calves with venous stasis skin thickening and mild brawniness to the skin of bilateral lower legs. There is no appreciable edema of the feet nor
ankles. Peripheral pulses are full and equal b/l. mild generalized tenderness about the lower legs. No palpable cords.
PSYCH: Normal and appropriate interaction.
Scores
Heart Failure Risk
Heart Failure Risk Score: Yes
History of Stroke or TIA: No
History of intubation for respiratory distress: No
Heart rate on ED arrival >/= 110: No
SaO2 <90% on arrival on room air: No
HR >/=110 during 3min walk test (or too ill to perform test): No
ECG has acute ischemic changes: No
Urea >/=12mmol/L (BUN 33.6mg/dL): No
Serum CO2>/=35mmol/L: No
Troponin I or T elevated to [place] Level (0.4mg/dL): No
NT-proBNP >/=5,000ng/L (5,000pg/ml): No
HF Risk Score: 0
Admission Status: LOW RISK 2.8% Consider discharge to home with f/u visit to PCP/Human Services Assistant
Course
Orders/Labs/Results
Orders:
Orders
08/11/23 21:25
Electrocardiogram (*1) Urgent
Reason for Study: Chest Pain
EKG- Treatment ONCE
08/11/23 21:38
BNP [NT-proBNP] Urgent
CMP [Comprehensive Metabolic Panel] Urgent
Complete Blood Count/With Diff Urgent
Troponin I Urgent
08/11/23 23:19
US Periph Venous LOWER Ext Brian Urgent
Comment:
Reason For Exam: b/l LE edema x several days
08/12/23 00:00
CR Chest - 2 Views Urgent
Reason For Exam: intermittent CP, b/l LE edema
08/12/23 00:[address] Non Medication Order As Directed
Physician Order: knee high MANDA stockings b/l LE's
Above order entered?: Yes
08/12/23 01:13
Teds [Anti-embolism (MANDA) Hose] As Directed
Type: Knee high
Abnormal Lab Results
08/11/23
21:38
RBC 4.46 L 10^6/uL
(4.70-6.10)
RDW 14.9 H %
(11.5-14.5)
Plt Count 128 L 10^3/uL
(130-400)
MPV 10.8 H fL
(7.4-10.4)
Absolute Monos (auto) 1.1 H 10^3/uL
(0.1-0.6)
Lymphocytes % 17.2 L %
(20.5-51.1)
Monocytes % 13.7 H %
(1.7-9.3)
Eosinophils % 6.9 H %
(0-6)
Glucose 112 H mg/dl
(70-99)
08/11/23 21:38
08/11/23 21:38
Vital Signs
Initial and Last Documented VS:
Initial Vital Signs
Temp Pulse Resp BP Pulse Ox
97.8 F 78 22 164/84 94
08/11/23 21:22 08/11/23 21:22 08/11/23 21:22 08/11/23 21:22 08/11/23 21:22
Last Documented Vital Signs
Temp Pulse Resp BP Pulse Ox
97.8 F 66 19 158/74 95
08/11/23 21:22 08/12/23 01:00 08/12/23 01:00 08/12/23 01:00 08/12/23 01:00
MDM/Problems Addressed
Differential Diagnosis Includes:
Patient presents with progressive bilateral lower extremity edema, concern for CHF, DVT, venous stasis related edema, progression of pulmonary hypertension, electrolyte abnormality, anemia.
Labs thus far are unremarkable. Mild but stable thrombocytopenia. Chemistries are unremarkable with negative troponin and normal BNP at 103.
Will check venous Doppler bilateral lower extremities as well as chest x-ray.
*Radiology
Radiology exam reviewed: preliminary read by ED provider (. Chest x-ray shows poor inspiratory effort otherwise unremarkable, unchanged from previous.) and radiology read reviewed (Venous Doppler negative bilaterally)
*Pulse Oximetry
Patient hypoxic: no
*EKG
Interpreted by ED Provider?: Yes
Comparison EKG: no changes (Unchanged from previous June 03, 2023)
Rate: normal
Rhythm: sinus
[place]: left axis deviation
Interval: normal interval
QRS Pattern: normal QRS
Ischemia: no ischemia
*Kitchen Hand Interpretation
Rate: normal
Interpretation: normal
Rhythm: sinus
*Critical Care Note
Total Time (30-74mins, 75-104mins- exclusive of procedures): Not Applicable
Update Note
Update Note:
08/12/2023 0110 AM
Venous Doppler bilateral lower extremities negative for DVT.
Chest x-ray is unremarkable showing poor inspiratory effort but otherwise unremarkable, normal heart size, no evidence of CHF.
Patient is prescribed Lasix 40 mg to take once daily as needed for weight gain. He admits that he has not been taking this over the past 3 days waiting to 'see if that would change anything'
Recommend he resume his daily Lasix.
He will be fitted with knee-high compression stockings bilaterally.
Discussed importance of continuing low-sodium diet, elevate legs and prompt follow-up with his bracelet former, Dr. Briggs.
ED Attending Note
-
Portions of this chart may have been created with voice recognition software.� Occasional wrong word or��sound alike� substitutions may have occurred due to the inherent limitations of voice recognition software.
Discharge Plan
Departure
Patient Disposition: Home (Routine Discharge)
Date of Disposition: 08/12/23
Time of Disposition: 01:12
Patient with high blood pressure during this ER visit?: No
Condition: Good
Discharge Problem:
Venous stasis of both lower extremities, Edema of lower leg due to peripheral venous insufficiency
Instructions: Swelling, How to Put On and Take Off Compression Stockings
Prescriptions:
No Action
mometasone 50 mcg/actuation spray,non-aerosol
2 spray intranasal BID PRN (Reason: allergy symptoms) Qty: 17 0RF
montelukast 10 mg tablet
10 mg PO DAILY
diltiazem HCl 240 mg Capsule,Extended Release 24hr
240 mg PO DAILY Qty: 0 0RF
furosemide 40 mg tablet
40 mg PO DAILY PRN (Reason: weight gain (3lbs)/edema)
acetaminophen [Acetaminophen Extra Strength] 500 mg tablet
1,000 mg PO HSPRN PRN (Reason: mild pain)
dextroamphetamine-amphetamine 15 MG tablet
15 mg PO BID
Patient Comments:
04/10/2023, pt. filled this med. on 03/20/2023 for 90 tablets according to PDMP.
isosorbide mononitrate 60 mg Tablet Extended Release 24 Hr
60 mg PO DAILY Qty: 30 0RF
losartan 100 mg Tablet
100 mg PO DAILY
rosuvastatin [Crestor] 10 mg Tablet
10 mg PO DAILY
budesonide-formoterol [Symbicort] 160-4.5 mcg/actuation Hfa Aerosol Inhaler
2 puff inhalation R BID Qty: 1 0RF
Proair Digihaler 90 mcg/actuation aero powdr breath act w/sensor
90 mcg inhalation Q6H PRN (Reason: shortness of breath or wheezing) Qty: 1 0RF
prednisone 10 mg Tablet
See Rx Instructions .ROUTE .COMPLEX Qty: 30 0RF
Rx Instructions:
Take By Mouth:
40 mg daily x3 days, 30 mg daily x3 days,
20 mg daily x3 days, 10 mg daily x3 days.
Referrals:
Eleazar Briggs MD [Active] - Call in 1-3 days for appt
Nando Agustin DO [Family Provider] - Call in 1-3 days for appt
Interventions
Interventions:
*Risk Screen - Suicide Last Done: 08/11/23 21:22
*General Assessment Last Done: 08/11/23 23:07
*Neglect/Abuse Screening Last Done: 08/11/23 21:22
*Nursing Disposition Last Done: 08/12/23 01:54
ED- Cardiac Assessment Last Done: 08/11/23 23:09
ED- Pulmonary Assessment Last Done: 08/11/23 23:09
ED-Skin Assessment Last Done: 08/11/23 23:09
Discharge Date and Time
Discharge Date/Time: 08/12/23 01:57
Print Language: [place]
[2023-08-12 01:00] VITALS: BP 158/74
== END 2023-08-12 01:57 | disposition home or self-care (01) ==
LOC: EMR 21:20
PROVIDERS: Emergency Medicine; EMERGENCY PHYSICIAN Emergency Medicine; FAMILY PHYSICIAN Family Medicine
DX: I87.2 Venous insufficiency (chronic) (peripheral) (principal); R06.00 Dyspnea, unspecified; I87.8 Other specified disorders of veins; J44.89 Other specified chronic obstructive pulmonary disease; I11.0 Hypertensive heart disease with heart failure; I50.9 Heart failure, unspecified; I25.10 Atherosclerotic heart disease of native coronary artery without angina pectoris; I25.2 Old myocardial infarction; E66.9 Obesity, unspecified; I35.0 Nonrheumatic aortic (valve) stenosis
CPT/HCPCS: 99284; 71046; 80053; 83880; 84484; 85025; 93005; 93970

== ENCOUNTER 2024-03-13 12:06 | Inpatient (IN) | payer MEDICARE, SELFPAY ==
[2024-03-13] VITALS (13 sets, daily range): BP systolic 111–168; BP diastolic 62–88; BMI 40.1
[2024-03-13 06:50] LABS: ALT (SGPT) 19 U/L (0-50); AST (SGOT) 24 U/L (17-59); Alkaline Phosphatase 66 U/L (38-126); Blood Urea Nitrogen 18 mg/dl (9-20); Calcium 8.7 mg/dl (8.4-10.2); Carbon Dioxide 32 mmol/L (22-30); Chloride 99 mmol/L (98-107); Estimated Creatinine Clearance 123 ml/min; Glucose 121 mg/dl (70-99); Potassium 4.2 mmol/L (3.5-5.1); Sodium 138 mmol/L (135-145); Total Bilirubin 0.8 mg/dl (0.2-1.3); Total Protein 6.8 g/dl (6.3-8.2); eGFR > 60.00
[2024-03-13 06:51] LABS: INR 0.95; PT 13.2 Sec (11.4-14.6)
[2024-03-13 06:53] LABS: COVID-19 Antigen Negative (Negative)
[2024-03-13 06:56] LABS: % Basophils 0.4 % (0-2); % Eosinophils 1.2 % (0-6); % Immature Granulocytes 0.3 % (0-0.5); % Lymphocytes 9.8 % (20.5-51.1); % Monocytes 9.8 % (1.7-9.3); % Neutrophils 78.5 % (42.2-75.2); Absolute Basophils 0.1 10^3/uL (0-0.2); Absolute Eosinophils 0.1 10^3/uL (0-0.7); Absolute Lymphocytes 1.2 10^3/uL (1.2-3.4); Absolute Monocytes 1.2 10^3/uL (0.1-0.6); Absolute Neutrophils 9.4 10^3/uL (1.4-6.5); Hemoglobin 14.3 g/dL (13.0-18.0); Mean Corp Hgb Conc. 33.3 g/dL (33.0-37.0); Mean Corpuscular Hgb 30.9 pg (27.0-31.0); Mean Corpuscular Volume 92.9 fL (80.0-94.0); Mean Platelet Volume 11.9 fL (7.4-10.4); Nucleated Red Blood Cells % 0 % (-); Platelet Count 115 10^3/uL (130-400); Red Blood Cell Count 4.63 10^6/uL (4.70-6.10); Red Cell Dist. Width 14.4 % (11.5-14.5)
[2024-03-13 07:00] LABS: Troponin I 0.016 ng/ml
--- NOTE | 2024-03-13 07:39 | ED.GENMED ---
History of Present Illness
General
Chief Complaint: Chest Pain
Source: patient
Exam Limitations: none
Time Seen by Provider: 03/13/24 07:03
Nursing documentation reviewed up to this point in time: agreed with
History of Present Illness
History of Present Illness:
pt is a 68 y/o M
h/o CHF on lasix but has not had lasix in about 1 week
HTN, copd/asthma
here with sypmtoms of upper back and chest pain that he says started actually 2 days ago gradually and worsened at 11 pm last night and specifically by 4 am he had severe symptoms
he feels sob, has pain with deep breathing
he also noticed leg swelling but believed that to be due to being out of lasix; he just got it refilled but didn't restart it.
he has had cardiac cath, showing coronary vasopasm previuosly 12/2022
he also has h/o , mild
he has not taken any thing for pain
he also hasn't used his inhalers in a few days ago feels like he is wheezing
no fever, vomiting, syncope, abdominal distension
pt is homeless in a snf currently
Past History
Past History
ED Past Medical History: Asthma, CHF, HTN and Other (Klinefelter, obesity, leg edema)
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 )
Social History
Tobacco: Non-smoker (Unknown)
Alcohol: None (Unknown)
Drug: Narcotics
Personal:
Living: alone
Review of Systems
Review of Systems
Allergies reviewed?: Yes
All Other Systems: Not applicable
Phy Exam
Physical Exam
Physical Exam:
GENERAL: Alert , in no apparent distress
EYE: pupils equal and reactive
NECK: Supple
ENT: b/l TM s clear, pharynx erythematous but no tonsillar hypertrophy or exudates
CARDIAC: Regular rate and rhythm, mild to mod pretibial edema, pitting 1+
LUNGS: insp/exp wheezes, mild cough, mild tachypnea;
back: slight tender R shoulder blade; no rash
ABDOMEN: Soft, without focal tenderness, no r/g, no cvat, normal bowel sounds
NEUROLOGICAL: Alert and oriented, no focal neuro deficits
SKIN: Warm and dry, skin intact.
MUSCULOSKELETAL: moderate edema, well perfused.
PSYCH: Normal and appropriate interaction.
Scores
Heart Score for Chest Pain Patients
STEMI patient?: No
History: Moderately Suspicious
ECG: Nonspecific Repolarization
Age: >/= 65 years
Risk Factors: 1 or 2 Risk Factors
Troponin: </= Normal Limit
Heart Score for Chest Pain Patients: 5
Heart Score Risk: 20.3% MACE over next 6 weeks
Course
Orders/Labs/Results
Orders:
Orders
03/13/24 05:48
Electrocardiogram (*1) Urgent
Reason for Study: Chest Pain
Cardiac Monitoring- Treatment ONCE
EKG- Treatment ONCE
IV Insert/Care/Rem.- Treatment PRN
03/13/24 06:12
COVID-19 Antigen Urgent
Source: Nasal Swab
Complete Blood Count/With Diff Urgent
Comprehensive Metabolic Panel Urgent
NT-proBNP Urgent
Comment: ADD ON
Prothrombin Time Urgent
Troponin I Urgent
INF RAPID [Influenza A+B Rapid Molecular] Urgent
VIDYA Source: Nasal Swab
Specimen Description:
03/13/24 07:05
Add On- LAB Urgent
Tests Added?: BNP
03/13/24 07:13
CT Chest PE Study Urgent
Comment:
Reason For Exam: leg swelling, dyspnea, pleuritic pain, hypoxia
Diphenhydramine [Benadryl] 50 mg IV NOW STA
Hydrocortisone Sod Succinate [Solu-Cortef] 200 mg IV NOW STA
Ipratropium/Albuterol Sulfate [Duoneb] 3 ml INH R NOW ONE
03/13/24 09:21
Electrocardiogram (*1) Urgent
Reason for Study: Chest Pain
EKG- Treatment ONCE
Morphine Sulfate 4 mg IV NOW STA
Abnormal Lab Results
03/13/24
06:12
WBC 12.0 H 10^3/uL
(4.8-10.8)
RBC 4.63 L 10^6/uL
(4.70-6.10)
Plt Count 115 L 10^3/uL
(130-400)
MPV 11.9 H fL
(7.4-10.4)
Absolute Neuts (auto) 9.4 H 10^3/uL
(1.4-6.5)
Absolute Monos (auto) 1.2 H 10^3/uL
(0.1-0.6)
Neutrophils % 78.5 H %
(42.2-75.2)
Lymphocytes % 9.8 L %
(20.5-51.1)
Monocytes % 9.8 H %
(1.7-9.3)
Carbon Dioxide 32 H mmol/L
(22-30)
Glucose 121 H mg/dl
(70-99)
03/13/24 06:12
03/13/24 06:12
Vital Signs
Initial and Last Documented VS:
Initial Vital Signs
Pulse BP
60 158/88
03/13/24 05:49 03/13/24 05:49
Last Documented Vital Signs
Temp Pulse Resp BP Pulse Ox
37.0 C 82 27 154/62 88
03/13/24 09:28 03/13/24 09:00 03/13/24 09:00 03/13/24 09:00 03/13/24 09:00
MDM/Problems Addressed
Differential Diagnosis Includes:
copd exac, PE, pneuamonia, ACS, coronary vasospasm
MDM/Problems Addressed:
soni grace 68 y/o M h/o prinzmetal angina, COPD/asthma; CHF on lasix, mild
from snf
2 days upper back/chest pain with SOB and cough, pleuritic; worse at 4 am this morning
no fever
wheeezing, sat down to 87% after neb and steroids, CT PE neg, bnp normal, flu/covid neg, ekg unchanged and 1st trop neg;
*Critical Care Note
Total Time (30-74mins, 75-104mins- exclusive of procedures): Not Applicable
ED Attending Note
-
Portions of this chart may have been created with voice recognition software.� Occasional wrong word or��sound alike� substitutions may have occurred due to the inherent limitations of voice recognition software.
Discharge Plan
Departure
Patient Disposition: Admit
Date of Disposition: 03/13/24
Time of Disposition: 09:20
Admit to: Telemetry
Presentation/result/management discussed w/ accepting MD/DO: Hospitalist
Condition: Fair
Covid-19: Not Applicable
Discharge Problem:
COPD exacerbation, Chest pain
Prescriptions:
No Action
diltiazem HCl 240 mg Capsule,Extended Release 24hr
240 mg PO DAILY Qty: 0 0RF
furosemide 40 mg tablet
40 mg PO DAILYPRN PRN (Reason: weight gain (3lbs)/edema)
acetaminophen [Acetaminophen Extra Strength] 500 mg tablet
1,000 mg PO HSPRN PRN (Reason: mild pain)
dextroamphetamine-amphetamine 15 MG tablet
15 mg PO BID
isosorbide mononitrate 60 mg Tablet Extended Release 24 Hr
60 mg PO DAILY Qty: 30 0RF
losartan 100 mg Tablet
100 mg PO DAILY
rosuvastatin [Crestor] 10 mg Tablet
20 mg PO QPM
budesonide-formoterol [Symbicort] 160-4.5 mcg/actuation Hfa Aerosol Inhaler
2 puff inhalation R BID Qty: 1 0RF
aspirin 81 mg Tablet,Delayed Release (Dr/Ec)
81 mg PO DAILY
diphenhydramine HCl [Benadryl] 25 mg Capsule
25 mg PO HS
albuterol sulfate [ProAir HFA] 90 mcg/actuation Hfa Aerosol Inhaler
2 puff INHALATION R Q6HPRN PRN (Reason: sob)
mometasone 50 mcg/actuation spray,non-aerosol
2 spray intranasal BIDPRN PRN (Reason: allergy symptoms)
Referrals:
Nando Agustin DO [Family Provider] -
Interventions
Interventions:
*Risk Screen - Suicide Last Done: 03/13/24 06:00
*General Assessment Last Done: 03/13/24 05:59
*Neglect/Abuse Screening Last Done: 03/13/24 05:49
ED- Fall Risk Assessment Last Done: 03/13/24 06:00
*ED COVID-19 Vaccine History Last Done: 03/13/24 05:49
ED- Cardiac Assessment Last Done: 03/13/24 06:18
Discharge Date and Time
Print Language: SAMI
[2024-03-13] MEDS: BENADRYL 50 MG IV (07:40)
[2024-03-13] MEDS: SOLU-CORTEF 200 MG IV (07:42)
[2024-03-13] MEDS: DUONEB 3 ML INH (07:43)
[2024-03-13 08:03] LABS: NT-proBNP 142 pg/ml
[2024-03-13] MEDS: MORPHINE SULFATE 4 MG IV (09:36)
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
[2024-03-13 11:37] LABS: Erythrocyte Sed Rate 27 mm/hour (0-20)
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
[2024-03-13] MEDS: LASIX 40 MG IV (12:11)
[2024-03-13 12:47] LABS: Lipase 87 U/L (23-300)
[2024-03-13 12:49] LABS: Alcohol None Detected
[2024-03-13 13:13] LABS: Urine Albumin Trace (Neg - Trace); Urine Bilirubin Negative (Negative); Urine Character Clear (Clear); Urine Color Yellow; Urine Glucose Negative (Negative); Urine Ketone Negative (Negative); Urine Leukocyte Negative (Negative); Urine Nitrite Negative (Negative); Urine Occult Blood Trace (Negative); Urine Urobilinogen Negative (Neg - 1+)
[2024-03-13 13:26] LABS: Amphetamines Negative (Negative); Barbiturates Negative (Negative); Benzodiazepines Negative (Negative); Buprenorphine Negative (Negative); Cocaine Negative (Negative); Marijuana Negative (Negative); Methadone Negative (Negative); Methamphetamines Negative (Negative); Opiates Negative (Negative); Phencyclidine Negative (Negative); Tricyclic Antidepressants Negative (Negative)
[2024-03-13 14:45] LABS: Urine Bacteria Few (Negative); Urine Red Blood Cell 0-2 /HPF (0-2); Urine Squamous Cell 0-2 /LPF (Few)
[2024-03-13] MEDS: SOLU-MEDROL PF 40 MG IV ×2 (15:55→21:52)
--- NOTE | 2024-03-13 16:03 | TRANSFER ---
pt arrived fro ER at 1459, walked into room by himself, arrives aaox3 on 3L O2. pt denies sob/chest pain at the moment in time. labs drawn and sent to lab. outstanding medications administered. VSS. oriented to department. plan of care continues
to be followed.
[2024-03-13 16:33] LABS: Troponin I 0.015 ng/ml
[2024-03-13] MEDS: ProAIR HFA INHALER 2 PUFF INH (16:57)
[2024-03-13] MEDS: SYMBICORT 160/4.5 MCG INHALER 2 PUFF INH (16:57)
[2024-03-13] MEDS: LOVENOX 40 MG SC (17:15)
[2024-03-13] MEDS: CRESTOR 20 MG PO (17:15)
[2024-03-13] MEDS: MORPHINE SULFATE 2 MG IV (20:50)
[2024-03-13] MEDS: MAALOX 30 ML PO (21:05)
[2024-03-13] MEDS: CARDIZEM 5 MG IV (21:10)
[2024-03-13 21:25] LABS: Lactic Acid 2.2 mmol/L (0.7-2.0)
[2024-03-13 21:33] LABS: Blood Urea Nitrogen 19 mg/dl (9-20); Calcium 9.3 mg/dl (8.4-10.2); Carbon Dioxide 32 mmol/L (22-30); Chloride 94 mmol/L (98-107); Estimated Creatinine Clearance 109 ml/min; Glucose 190 mg/dl (70-99); Magnesium 1.9 mg/dl (1.6-2.3); Potassium 4.1 mmol/L (3.5-5.1); Sodium 135 mmol/L (135-145); eGFR > 60.00
[2024-03-13 21:38] LABS: Troponin I < 0.012 ng/ml
[2024-03-13] MEDS: ADDERALL 15 MG PO (21:52)
[2024-03-13] MEDS: FLUSH (NSS) 2 FLUSH IV (21:52)
[2024-03-13] MEDS: BENADRYL 25 MG PO (21:52)
[2024-03-13] MEDS: CARDIZEM CD 240 MG PO (21:53)
[2024-03-13] MEDS: OFIRMEV 100 IV (22:32)
[2024-03-13] MEDS: FLUSH (NSS) 1 FLUSH IV (22:34)
[2024-03-14] MEDS: MORPHINE SULFATE 2 MG IV ×3 (00:59→23:52)
[2024-03-14] MEDS: FLUSH (NSS) 2 FLUSH IV (01:04)
[2024-03-14] MEDS: CARDIZEM 125 IV (01:59)
[2024-03-14] MEDS: FLUSH (NSS) 1 FLUSH IV (02:00)
[2024-03-14 03:53] VITALS: BP 108/59
[2024-03-14 04:33] LABS: % Immature Granulocytes 0.3 % (0-0.5); % Lymphocytes 5.6 % (20.5-51.1); % Monocytes 1.7 % (1.7-9.3); % Neutrophils 92.4 % (42.2-75.2); Absolute Lymphocytes 0.5 10^3/uL (1.2-3.4); Absolute Monocytes 0.2 10^3/uL (0.1-0.6); Absolute Neutrophils 8.4 10^3/uL (1.4-6.5); Hematocrit 44.2 % (39.0-52.0); Hemoglobin 14.8 g/dL (13.0-18.0); Mean Corp Hgb Conc. 33.5 g/dL (33.0-37.0); Mean Corpuscular Hgb 30.9 pg (27.0-31.0); Mean Corpuscular Volume 92.3 fL (80.0-94.0); Mean Platelet Volume 12.2 fL (7.4-10.4); Nucleated Red Blood Cells % 0 % (-); Platelet Count 123 10^3/uL (130-400); Red Blood Cell Count 4.79 10^6/uL (4.70-6.10); Red Cell Dist. Width 14.4 % (11.5-14.5); White Blood Cell Count 9.1 10^3/uL (4.8-10.8)
--- NOTE | 2024-03-14 04:41 | PTCARENOTE ---
Patient tele alarming for HR 160's. Patient in room sitting on side of bed with c/o CP 10/10 similar to what he's been having but'more intense'. Tele was NSR but now A-fib. EGK done. BP 118/72 O2 Sat 92% room Air. O2 at 2lpm. Morphine 2mg per
prn order given. SOCIAL SERVICES ANALYST, covering unit, to floor. Cardizem 5mg IV as ordered. CP gradually decreased but patient c/o back pain. HR to 140's. Cardizem PO as per order. HR continues 130-140. Cardizem gtt initiated at 5 mg/hr. HR to 110's.
[2024-03-14 04:58] LABS: ALT (SGPT) 20 U/L (0-50); AST (SGOT) 27 U/L (17-59); Albumin 4.1 g/dl (3.5-5.0); Alkaline Phosphatase 57 U/L (38-126); Blood Urea Nitrogen 27 mg/dl (9-20); Calcium 9.1 mg/dl (8.4-10.2); Carbon Dioxide 27 mmol/L (22-30); Chloride 96 mmol/L (98-107); Estimated Creatinine Clearance 98 ml/min; Glucose 168 mg/dl (70-99); HDL Cholesterol 73 mg/dl; LDL Cholesterol, Calculated 67 mg/dl; Potassium 4.8 mmol/L (3.5-5.1); Sodium 135 mmol/L (135-145); Total Bilirubin 0.9 mg/dl (0.2-1.3); Total Cholesterol 150 mg/dl (50-199); Total Protein 7.5 g/dl (6.3-8.2); Triglyceride 53 mg/dl (10-149); Very Low Density Lipoprotein 10 mg/dl (0-30); eGFR > 60.00
[2024-03-14 05:23] LABS: TSH 0.46 uIU/ml (0.47-4.68)
[2024-03-14] MEDS: SOLU-MEDROL PF 40 MG IV (05:27)
[2024-03-14 06:00] VITALS: BMI 39.7
[2024-03-14 07:00] VITALS: BP 155/72
--- NOTE | 2024-03-14 07:14 | W.PN.UPDATE ---
Update Note
Progress Note Update
Around 9 pm, Patient c/o chest discomfort. PRN Morphine given. Ordered Tylenol IV 1 g x 1 dose. Pt HR elevated 140-160's, EKG ordered shows afib w/RVR. Ordered Cardizem 5 mg IV x 1. HR slightly better, 120-140's. Troponin <0.012 -> 0.060, next
troponin due 9:30 am.
Pt missed home dose of Cardizem 240 mg PO, gave dose at 2145. Pt HR remained elevated, still afib w/RVR, started on Cardizem gtt. Cardiology already consulted.
At 5 am, HR 90's, Cardizem gtt discontinued. Repeat EKG afib.
[2024-03-14] MEDS: ProAIR HFA INHALER 2 PUFF INH ×2 (07:22→11:08)
[2024-03-14] MEDS: SYMBICORT 160/4.5 MCG INHALER 2 PUFF INH ×2 (07:22→19:50)
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
[2024-03-14] MEDS: CARDIZEM CD 240 MG PO (08:45)
[2024-03-14] MEDS: COZAAR 100 MG PO (08:45)
[2024-03-14] MEDS: ADDERALL 15 MG PO ×2 (08:45→21:11)
[2024-03-14] MEDS: ASPIR LOW (ENTERIC COATED) 81 MG PO (08:45)
[2024-03-14] MEDS: LASIX 40 MG PO (08:45)
[2024-03-14 09:34] LABS: Troponin I 0.068 ng/ml
[2024-03-14 11:00] VITALS: BP 110/63
[2024-03-14] MEDS: IMDUR (EXTENDED RELEASE) 60 MG PO (11:17)
--- NOTE | 2024-03-14 12:40 | W.PN.CD ---
Today's Communication / Plan
-
Afib education
Increase Dilt
EKG in AM
Check TSH
Later consider anticoagulation
Continue Lasix
Impression / Plan
-
Acute hypoxic respiratory failure
- Influenza negative, COVID-19 negative
- Consider viral syndrome
- Known COPD/Restrictive lung disease with severely reduced DLCO
- Has known hx of HFpEF, off diuretic for 1-7 days at least
AFib, new
- Rate 132 on fist ekg with AFib and 88 this mornig
- Rhythm, new onset, onset 03/13/20242050 hrs EKG (in chart as 03/13/2023)
- [id number] at least 4 (HF, HTN, Vascular Dz, age1)
- For now no anticoagulation given his non-adherence, but will provide more education and reevaluate
Elevated troponin, peak trop 0.068, starte at <0.012, trop ordered for this afternoon
- Suspect non-ischemic myocardial injury from respiratory process and AFib
Aortic stenosis, now moderate
CAD, nonobstructive with vasospasm
- Has been managed with dilt and nitrates
- Stable without chest pain
- Continue medical therapy, including aspirin, he has a history of low platelets but they have not been under 50
HFpEF, chronic
- Weight is up but he endorses high caloric intake
- No Lasix for one week, he was given intravenous furosemide by primary service
- Low-sodium diet, daily weight, I/L
COPD/Restrictive lung disease with severely reduced DLCO
HTN
Back pain
-CT without PE, dissection, and pleural effusion
CKD, manage by Dr. Cuellar
HLD, on rosuvastatin
Pre-diabetes, Hgba1c 5.8%
Klinefelter's
Obesity, BMI 40
Prior overdose requiring Narcan (fentanyl & cocaine)
Homelessness
Subjective:
No real dyspnea, still with waxing waning diffuse pain. No palps.
Data:
Echo 03/13/2024:
Normal left ventricular size and systolic function.
LV ejection fraction is 55-60% .
Moderate aortic stenosis.
Peak/mean gradients are 42/27mmHg.
Compared to the previous echo from 04/10/2023 there is no significant change
EKG 03/13/2023: AFib
Physical Exam
Vital Signs/Labs
Vital Signs
Temp Pulse Resp BP Pulse Ox
97.7 F 75 18 155/72 95
03/14/24 07:00 03/14/24 11:12 03/14/24 11:12 03/14/24 07:00 03/14/24 11:12
03/13/24 03/14/24 03/15/24
06:59 06:59 06:59
Actual Weight 135.8 kg 132.54 kg
03/14/24 04:12
03/14/24 04:12
PT 13.2 Sec (11.4-14.6) 03/13/24 06:12
INR 0.95 03/13/24 06:12
Magnesium 1.9 mg/dl (1.6-2.3) 03/13/24 21:01
Triglycerides 53 mg/dl (10-149) 03/14/24 04:12
LDL Cholesterol, Calc 67 mg/dl 03/14/24 04:12
VLDL Cholesterol, Calc 10 mg/dl (0-30) 03/14/24 04:12
HDL Cholesterol 73 mg/dl 03/14/24 04:12
TSH 0.46 uIU/ml (0.47-4.68) L 03/14/24 04:12
Free T4 1.20 ng/dl (0.78-2.19) 03/14/24 04:12
03/13/24
06:12
Cvj-V-Heqkjrhwbfr Pept 142
LAB Results
03/13/24 03/13/24 03/13/24
06:12 16:00 20:57
Troponin I 0.016 0.015 < 0.012
03/14/24 03/14/24
04:12 08:54
Troponin I 0.060 H* D 0.068 H*
Physical Exam
Constitutional: No acute distress
Cardiovascular: Rhythm/rate is irregular and Systolic murmur present
Respiratory: Respiratory effort normal and Crackles Absent
GI: Soft and Distention absent
Neuro/Psych: Alert
Data Reviewed
-
Date of Service: March 14, 2024
[2024-03-14 13:52] LABS: Troponin I 0.077 ng/ml
[2024-03-14] MEDS: CARDIZEM CD 120 MG PO (14:23)
[2024-03-14 15:00] VITALS: BP 116/61
[2024-03-14] MEDS: CRESTOR 20 MG PO (17:51)
[2024-03-14] MEDS: LOVENOX 40 MG SC (17:51)
[2024-03-14 19:00] VITALS: BP 110/55
[2024-03-14] MEDS: BENADRYL 25 MG PO (21:11)
[2024-03-14] MEDS: TYLENOL 650 MG PO (21:46)
[2024-03-14] MEDS: MIRALAX 17 GRAMS PO (21:57)
[2024-03-14 22:30] LABS: Troponin I 0.072 ng/ml
[2024-03-14 23:00] VITALS: BP 140/71
[2024-03-15 03:00] VITALS: BP 129/50
[2024-03-15 04:42] VITALS: BMI 40.4
[2024-03-15 05:25] LABS: Troponin I 0.067 ng/ml
[2024-03-15 07:01] LABS: Troponin I 0.057 ng/ml
[2024-03-15 08:02] VITALS: BP 150/76
--- NOTE | 2024-03-15 08:04 | W.PN.HOSP.TC ---
Today's Communication/Plan
-
start steroids as rales, cont doxy
increase Lasix to BID IV as weight up
Assessment / Plan
Assessment / Plan
68yo M with Klinefelter's syndrome, COPD, HFpEF, CAD, severe restrictive lung disease with daytime sleepiness on Adderal, HTN, homeless from [facility] came with worsening of his usual pain in the back, pleuritic, found hypoxic. Pain is sharp,
radiating to the substernal area, mostly inspiratory and relieved by sitting up, rest and using inhalers. managed for recurrent Afib, COPD and CHF exacerbation
A/P:
#Chest and upper back pain, pleuritic, suspect musculoskeletal vs 2/2 COPD and CHF exacerbation
#CAD, stable
#Tachycardia, with PMHx of Afib, now in Afib again (paroxysmal)
#Coronary vasospasm
#Troponin elevation 2/2 Afib, non-ischemic myocardial injury
CTA chest without signs of PE
ProBNP 142, but patient is obese
ESR/CRP mildly increased, but no significant concern for pericarditis
Initial EKG without TWI or ST changes concerning for ACS, trops increased to 0.072 while in Afib and started to improved when converted to sinus
cont home meds
Cardio consult: cont CCB and nitro, defer AC to cardiology
Telemetry
#Acute on Chronic HFpEF
LE swelling - someone stole Lasix from patient -restart with IV
daily weight and electrolytes, low sodium diet and I&O
Echo: EF 55-60%, moderate
#Acute hypoxic respiratory failure 2/2 restrictive lung disease with acute bronchitis
No pneumonia on CT, but significant rales on auscultation
Steroid taper, doxy
Incentive spirometry
bronchodilators
Weaned off O2 rapidly on the day of admission
Neg COVID-19 and Influenza PCR
#leukocytosis
no pneumonia
UA neg for overt UTI and symptoms absent
Resolved
#Hx of alcohol abuse
alcohol level, lipase, UDS WNL
#chronic thrombocytopenia with PMHx of splenectomy
follow CBC, avoid AC if <50k
#Essential HTN
#HLD
#Excessive daytime sleepiness
cont home meds
#Morbid obesity
BMI 40.6
decrease calorie intake
DVT ppx lovenox
FUll code
I have spent at least 57min reviewing chart, test results, communication with cosnultants and direct patient care
Anticipated Discharge: > 48 hours
Subjective/Interval History
-
Date of Service: March 15, 2024
Objective Data
-
Labs:
Laboratory Results
03/15/24
06:26
Sodium Pending
Potassium Pending
Chloride Pending
Carbon Dioxide Pending
BUN Pending
Creatinine Pending
Glucose Pending
Calcium Pending
Vital Signs:
Vital Signs
Temp Pulse Resp BP Pulse Ox
97.4 F 59 18 129/50 93
03/15/24 03:00 03/15/24 03:00 03/15/24 03:00 03/15/24 03:00 03/15/24 03:00
I&O
03/14/24 03/15/24 03/16/24
06:59 06:59 06:59
Intake Total 790 / 790 1080 / 1080
Output Total 625 / 625 700 / 700
Balance 165 / 165 380 / 380
Review of Systems
-
History Source: Patient
All other systems: Reviewed and negative
Musculoskeletal: Reports Other (shoulder pain)
Physical Exam
-
General: No Apparent Distress
HEENT: Normocephalic
Respiratory: Rales and Crackles
Cardiac: Regular Rhythm
Musculoskeletal: No Clubbing, No Cyanosis and No Edema
Neuro: Awake, Alert, Oriented and AO x 3
Psych: Calm
[2024-03-15 08:10] LABS: Blood Urea Nitrogen 53 mg/dl (9-20); Calcium 8.5 mg/dl (8.4-10.2); Carbon Dioxide 30 mmol/L (22-30); Chloride 93 mmol/L (98-107); Estimated Creatinine Clearance 61 ml/min; Glucose 136 mg/dl (70-99); Magnesium 2.5 mg/dl (1.6-2.3); Potassium 4.6 mmol/L (3.5-5.1); Sodium 133 mmol/L (135-145); eGFR 46.06
[2024-03-15] MEDS: SYMBICORT 160/4.5 MCG INHALER 2 PUFF INH ×2 (08:11→19:02)
[2024-03-15] MEDS: ProAIR HFA INHALER 2 PUFF INH (08:13)
[2024-03-15] MEDS: LIDOCAINE 4% PATCH 1 PATCH TOPICAL (10:17)
[2024-03-15] MEDS: LASIX 40 MG IV (10:20)
[2024-03-15] MEDS: SOLU-MEDROL PF 40 MG IV ×2 (10:20→20:58)
[2024-03-15] MEDS: CARDIZEM CD 360 MG PO (10:21)
[2024-03-15] MEDS: ASPIR LOW (ENTERIC COATED) 81 MG PO (10:22)
[2024-03-15] MEDS: ADDERALL 15 MG PO ×2 (10:22→20:57)
[2024-03-15] MEDS: COZAAR 100 MG PO (10:22)
[2024-03-15] MEDS: TYLENOL 650 MG PO (10:22)
[2024-03-15] MEDS: IMDUR (EXTENDED RELEASE) 60 MG PO (10:22)
[2024-03-15] MEDS: VIBRAMYCIN 100 MG PO ×2 (10:22→20:57)
--- NOTE | 2024-03-15 12:02 | W.PN.CD ---
Today's Communication / Plan
-
- Discussed pros/cons of anticoagulation and he is agreeable to start and he will watch for signs/symptoms of bleeding
- I consulted case manament for cost of Eliquis and SGLT2-I
- Stop IV Lasix, and plan to resume home dose of Lasix once Cr back to baseline
- As outpatient consider MRA (Aldactone)
Impression / Plan
-
Acute hypoxic respiratory failure
- Influenza negative, COVID-19 negative
- Consider viral syndrome
- Known COPD/Restrictive lung disease with severely reduced DLCO
- Has known hx of HFpEF, off diuretic for about 1 WEEK at least prior to admit
AFib, new, Paroxysmal
- Was fast initially. Eva later. and 03/14/2024. Back to sinus now 03/16/2024
- Dilt had been 240 for CAD/cor spasm and now I increased to 360 mg a day
- [id number] at least 4 (HF, HTN, Vascular Dz, age1)
- Discussed pros/cons of anticoagulation and he is agreeable to start and he will watch for signs/symptoms of bleeding. Will check copay of Eliquis
Elevated troponin, peak trop 0.077, started at <0.012, trop ordered for this afternoon
- Suspect non-ischemic myocardial injury from respiratory process and AFib
New NERI
- Likely from IV diuresis
- Stop IV Lasix, and plan to resume home dose of Lasix once Cr back to baseline
HFpEF, chronic
- Weight is up but he endorses high caloric intake
- No Lasix for one week, he was given intravenous furosemide by primary service
- Low-sodium diet, daily weight
- Stop IV Lasix, and plan to resume home dose of Lasix once Cr back to baseline
- Check cost of SGLT-1
- As outpatient consider MRA (Aldactone)
Aortic stenosis, now moderate
CAD, nonobstructive with vasospasm
- Has been managed with dilt and nitrates
- Stable without chest pain
- Continue medical therapy, including aspirin, he has a history of low platelets but they have not been under 50
COPD/Restrictive lung disease with severely reduced DLCO
HTN
Back pain
-CT without PE, dissection, and pleural effusion
CKD, manage by Dr. Cuellar
HLD, on rosuvastatin
Pre-diabetes, Hgba1c 5.8%
Klinefelter's
Obesity, BMI 40
Prior overdose requiring Narcan (fentanyl & cocaine)
Homelessness
Subjective:
No real dyspnea, still with waxing waning diffuse pain. No palps.
Data:
Echo 03/13/2024:
Normal left ventricular size and systolic function.
LV ejection fraction is 55-60% .
Moderate aortic stenosis.
Peak/mean gradients are 42/27mmHg.
Compared to the previous echo from 04/10/2023 there is no significant change
EKG 03/13/2023: AFib
Physical Exam
Vital Signs/Labs
Vital Signs
Temp Pulse Resp BP Pulse Ox
97.4 F 58 18 150/76 96
03/15/24 08:02 03/15/24 08:14 03/15/24 08:14 03/15/24 08:02 03/15/24 08:14
03/14/24 03/15/24 03/16/24
06:59 06:59 06:59
Actual Weight 132.54 kg 134.944 kg
03/14/24 04:12
03/15/24 06:26
PT 13.2 Sec (11.4-14.6) 03/13/24 06:12
INR 0.95 03/13/24 06:12
Magnesium 2.5 mg/dl (1.6-2.3) H 03/15/24 06:26
Triglycerides 53 mg/dl (10-149) 03/14/24 04:12
LDL Cholesterol, Calc 67 mg/dl 03/14/24 04:12
VLDL Cholesterol, Calc 10 mg/dl (0-30) 03/14/24 04:12
HDL Cholesterol 73 mg/dl 03/14/24 04:12
TSH 0.46 uIU/ml (0.47-4.68) L 03/14/24 04:12
Free T4 1.20 ng/dl (0.78-2.19) 03/14/24 04:12
03/13/24
06:12
Qrr-Q-Xmkdywarfnp Pept 142
LAB Results
03/13/24 03/13/24 03/13/24
06:12 16:00 20:57
Troponin I 0.016 0.015 < 0.012
03/14/24 03/14/24 03/14/24
04:12 08:54 13:04
Troponin I 0.060 H* D 0.068 H* 0.077 H*
03/14/24 03/15/24 03/15/24
21:49 04:43 06:26
Troponin I 0.072 H* 0.067 H* 0.057 H*
03/15/24
10:00
Troponin I Cancelled
Physical Exam
Constitutional: No acute distress
EENT: Anicteric
Cardiovascular: Rhythm & rate is regular and Pedal edema is absent
Respiratory: Respiratory effort normal and Lungs clear to auscul.
GI: Soft and Distention absent
Neuro/Psych: Alert
Data Reviewed
-
Date of Service: March 15, 2024
[2024-03-15 12:45] VITALS: BP 139/68
--- NOTE | 2024-03-15 13:11 | CM ---
Patient who is currently homeless residing at [facility] with Hx obesity and Dx new Afib. Room air. Receiving IV Solumedrol.
Spoke with patient who has been homeless since his and unable to afford housing due to low amount of $ he receives through . The patient states he has been staying at [facility], which he describes as a
really nice place.
He is working with [facility] and [facility] the Homeless, in [place], who are lining up an apartment for him in [place], and he has his car.
The patient was independent with ADLs and ambulation.
He has no DME or prior VN.
PCP - Nando Agustin
Pharmacy - [facility]
CM Consult: Check copays - Farxiga 10mg daily, Jardiance 10mg daily, Eliquis 5mg BID
Spoke with pharmacist, [facility]; all 3 are covered at 100% and have zero copays.
Informed patient no out of pocket cost for these 3 meds - he says he is aware he has really good insurance that pays for well for his meds.
Dr Dumont informed.
Plan return to [facility] with patient driving himself.
[2024-03-15 16:14] VITALS: BP 109/46
[2024-03-15] MEDS: CRESTOR 20 MG PO (18:27)
--- NOTE | 2024-03-15 18:53 | W.PN.UPDATE ---
Update Note
Progress Note Update
Meds havae $0 dollar copay. Will add Radha
[2024-03-15 19:00] VITALS: BP 101/52
[2024-03-15] MEDS: ELIQUIS 5 MG PO (20:57)
[2024-03-15] MEDS: BENADRYL 25 MG PO (21:00)
[2024-03-15 23:00] VITALS: BP 128/60
[2024-03-16 03:00] VITALS: BP 109/61
[2024-03-16 06:00] VITALS: BMI 39.9
[2024-03-16 07:48] VITALS: BP 155/64
[2024-03-16] MEDS: SYMBICORT 160/4.5 MCG INHALER 2 PUFF INH ×2 (08:03→21:38)
[2024-03-16 08:05] LABS: Procalcitonin < 0.05 ng/ml (0.0-0.25)
[2024-03-16 08:11] LABS: ALT (SGPT) 21 U/L (0-50); AST (SGOT) 24 U/L (17-59); Albumin 4.1 g/dl (3.5-5.0); Alkaline Phosphatase 54 U/L (38-126); Blood Urea Nitrogen 54 mg/dl (9-20); Carbon Dioxide 35 mmol/L (22-30); Chloride 94 mmol/L (98-107); Estimated Creatinine Clearance 81 ml/min; Glucose 154 mg/dl (70-99); Magnesium 2.6 mg/dl (1.6-2.3); Sodium 137 mmol/L (135-145); Total Bilirubin 0.7 mg/dl (0.2-1.3); Total Protein 7.2 g/dl (6.3-8.2); eGFR > 60.00
[2024-03-16] MEDS: ProAIR HFA INHALER 2 PUFF INH (08:13)
[2024-03-16 08:33] LABS: % Basophils 0.1 % (0-2); % Immature Granulocytes 0.2 % (0-0.5); % Lymphocytes 4.4 % (20.5-51.1); % Neutrophils 92.3 % (42.2-75.2); Absolute Lymphocytes 0.4 10^3/uL (1.2-3.4); Absolute Monocytes 0.3 10^3/uL (0.1-0.6); Absolute Neutrophils 7.6 10^3/uL (1.4-6.5); Hematocrit 45.1 % (39.0-52.0); Hemoglobin 15.1 g/dL (13.0-18.0); Mean Corp Hgb Conc. 33.5 g/dL (33.0-37.0); Mean Corpuscular Hgb 30.6 pg (27.0-31.0); Mean Corpuscular Volume 91.5 fL (80.0-94.0); Mean Platelet Volume 11.8 fL (7.4-10.4); Nucleated Red Blood Cells % 0 % (-); Platelet Count 180 10^3/uL (130-400); Red Blood Cell Count 4.93 10^6/uL (4.70-6.10); Red Cell Dist. Width 14.5 % (11.5-14.5); White Blood Cell Count 8.2 10^3/uL (4.8-10.8)
--- NOTE | 2024-03-16 08:35 | W.PN.HOSP.TC ---
Today's Communication/Plan
-
improving breathing, no pain reported, d/c in AM with oral steroids
Assessment / Plan
Assessment / Plan
68yo M with Klinefelter's syndrome, COPD, HFpEF, CAD, severe restrictive lung disease with daytime sleepiness on Adderal, HTN, homeless from nursing home came with worsening of his usual pain in the back, pleuritic, found hypoxic. Pain is sharp,
radiating to the substernal area, mostly inspiratory and relieved by sitting up, rest and using inhalers. managed for recurrent Afib, COPD and CHF exacerbation
A/P:
#Chest and upper back pain, pleuritic, suspect musculoskeletal vs 2/2 COPD and CHF exacerbation
#CAD, stable
#Tachycardia, with PMHx of Afib, now in Afib again (paroxysmal)
#Coronary vasospasm
#Troponin elevation 2/2 Afib, non-ischemic myocardial injury
CTA chest without signs of PE
ProBNP 142, but patient is obese
ESR/CRP mildly increased, but no significant concern for pericarditis
Initial EKG without TWI or ST changes concerning for ACS, trops increased to 0.072 while in Afib and started to improved when converted to sinus
cont home meds
Cardio consult: cont CCB and nitro, started Faxiga and Eliquis, patient was counseled on compliance and possible side effects, $0 co-pay confirmed
Telemetry
#Acute on Chronic HFpEF
LE swelling - someone stole Lasix from patient -restart with IV
daily weight and electrolytes, low sodium diet and I&O
Echo: EF 55-60%, moderate
#Acute hypoxic respiratory failure 2/2 restrictive lung disease with acute bronchitis
No pneumonia on CT, but significant rales on auscultation
Steroid taper, doxy
Incentive spirometry
bronchodilators
Weaned off O2 rapidly on the day of admission
Neg COVID-19 and Influenza PCR
#leukocytosis
no pneumonia
UA neg for overt UTI and symptoms absent
Resolved
#Hx of alcohol abuse
alcohol level, lipase, UDS WNL
#chronic thrombocytopenia with PMHx of splenectomy
follow CBC, avoid AC if <50k
#Essential HTN
#HLD
#Excessive daytime sleepiness
cont home meds
#Morbid obesity
BMI 40.6
decrease calorie intake
DVT ppx lovenox
FUll code
I have spent at least 57min reviewing chart, test results, communication with cosnultants and direct patient care
Anticipated Discharge: Within 24 hours
Subjective/Interval History
-
Date of Service: March 16, 2024
Objective Data
-
Labs:
Laboratory Results
03/16/24
07:24
WBC 8.2
Hgb 15.1
Hct 45.1
Plt Count 180 D
Sodium 137
Potassium 5.0
Chloride 94 L
Carbon Dioxide 35 H
BUN 54 H
Creatinine 1.2
Glucose 154 H
Calcium 9.0
Total Bilirubin 0.7
AST 24
ALT 21
Alkaline Phosphatase 54
Vital Signs:
Vital Signs
Temp Pulse Resp BP Pulse Ox
97.6 F 63 16 155/64 94
03/16/24 07:48 03/16/24 08:13 03/16/24 08:13 03/16/24 07:48 03/16/24 08:13
I&O
03/15/24 03/16/24 03/17/24
06:59 06:59 06:59
Intake Total 1080 / 1080 600 / 600
Output Total 700 / 700 3200 / 3200
Balance 380 / 380 -2600 / -2600
Review of Systems
-
History Source: Patient
All other systems: Reviewed and negative
Physical Exam
-
General: No Apparent Distress
HEENT: Normocephalic
Respiratory: Wheezes
Cardiac: Regular Rhythm
GI: Soft, Nontender and Nondistended
Neuro: Awake, Alert, Oriented and AO x 3
Psych: Calm
--- NOTE | 2024-03-16 08:42 | W.PN.CD ---
Today's Communication / Plan
-
- No Lasix until 03/21 then can resume home dose of 40 mg PO QD
- Eliquis started
- Farxiga if cost is not prohibitive.
Impression / Plan
-
Acute hypoxic respiratory failure
- Influenza negative, COVID-19 negative
- Consider viral syndrome
- Known COPD/Restrictive lung disease with severely reduced DLCO
- Has known hx of HFpEF, off diuretic for about 1 WEEK at least prior to admit
AFib, new, Paroxysmal
- Was fast initially. Eva later. and 03/14/2024. Back to sinus now 03/16/2024
- Dilt had been 240 for CAD/cor spasm and now increased to 360 mg a day
- [id number] at least 4 (HF, HTN, Vascular Dz, age1)
- Discussed pros/cons of anticoagulation and he is agreeable to start and he will watch for signs/symptoms of bleeding.
- Started on Eliquis 5 mg BID - Compliance is concerning.
Elevated troponin, peak trop 0.077, started at <0.012, trop ordered for this afternoon
- Suspect non-ischemic myocardial injury from respiratory process and AFib
New NERI
- Likely from IV diuresis - now off Lasix.
- s/p IV Lasix, and plan to resume home dose of Lasix once Cr back to baseline (0.9)
- Cr is improved from1.6 to 1.2 today
HFpEF, chronic
- Weight is up but he endorses high caloric intake
- No Lasix for one week, he was given intravenous furosemide by primary service
- Low-sodium diet, daily weight
- off IV Lasix, and plan to resume home dose of Lasix once Cr back to baseline
- Check cost of SGLT-1
- As outpatient consider MRA (Aldactone)
Aortic stenosis, now moderate
CAD, nonobstructive with vasospasm
- Has been managed with dilt and nitrates
- Stable without chest pain
- Continue medical therapy, including aspirin, he has a history of low platelets but they have not been under 50
COPD/Restrictive lung disease with severely reduced DLCO
HTN
Back pain
-CT without PE, dissection, and pleural effusion
CKD, manage by Dr. Cuellar
HLD, on rosuvastatin
Pre-diabetes, Hgba1c 5.8%
Klinefelter's
Obesity, BMI 40
Prior overdose requiring Narcan (fentanyl & cocaine)
Homelessness
Subjective:
No real dyspnea, still with waxing waning diffuse pain. No palps.
Data:
Echo 03/13/2024:
Normal left ventricular size and systolic function.
LV ejection fraction is 55-60% .
Moderate aortic stenosis.
Peak/mean gradients are 42/27mmHg.
Compared to the previous echo from 04/10/2023 there is no significant change
EKG 03/13/2023: AFib
Physical Exam
Vital Signs/Labs
Vital Signs
Temp Pulse Resp BP Pulse Ox
97.6 F 63 16 155/64 94
03/16/24 07:48 03/16/24 08:13 03/16/24 08:13 03/16/24 07:48 03/16/24 08:13
03/15/24 03/16/24 03/17/24
06:59 06:59 06:59
Actual Weight 134.944 kg 133.402 kg
03/16/24 07:24
03/16/24 07:24
PT 13.2 Sec (11.4-14.6) 03/13/24 06:12
INR 0.95 03/13/24 06:12
Magnesium 2.6 mg/dl (1.6-2.3) H 03/16/24 07:24
Triglycerides 53 mg/dl (10-149) 03/14/24 04:12
LDL Cholesterol, Calc 67 mg/dl 03/14/24 04:12
VLDL Cholesterol, Calc 10 mg/dl (0-30) 03/14/24 04:12
HDL Cholesterol 73 mg/dl 03/14/24 04:12
TSH 0.46 uIU/ml (0.47-4.68) L 03/14/24 04:12
Free T4 1.20 ng/dl (0.78-2.19) 03/14/24 04:12
03/13/24
06:12
Pbq-V-Uqvhtdflhtq Pept 142
LAB Results
03/13/24 03/13/24 03/14/24
16:00 20:57 04:12
Troponin I 0.015 < 0.012 0.060 H* D
03/14/24 03/14/24 03/14/24
08:54 13:04 21:49
Troponin I 0.068 H* 0.077 H* 0.072 H*
03/15/24 03/15/24 03/15/24
04:43 06:26 10:00
Troponin I 0.067 H* 0.057 H* Cancelled
Physical Exam
Constitutional: No acute distress and Comfortable
EENT: Anicteric and Moist mucous membranes
Cardiovascular: Rhythm & rate is regular, Pedal edema is absent, JVD pressure is normal and Systolic murmur present
Respiratory: Respiratory effort normal, Wheeze Absent and Crackles Absent
GI: Soft, Non tender and Normal bowel sounds
Neuro/Psych: Alert, Oriented and AO x 3
Data Reviewed
-
Date of Service: March 16, 2024
Medical Decision Making: Reviewed Test Results, Independent Historian Assessment, Test Interpretation and Review of Case with other Provider
EKG: Tracing Personally Visualized and interpreted
Echo: Report Reviewed by me
Labs: Labs Reviewed by me
Old Records: Reviewed
[2024-03-16] MEDS: CARDIZEM CD 360 MG PO (10:01)
[2024-03-16] MEDS: COZAAR 100 MG PO (10:02)
[2024-03-16] MEDS: ADDERALL 15 MG PO ×2 (10:02→20:51)
[2024-03-16] MEDS: VIBRAMYCIN 100 MG PO ×2 (10:02→20:51)
[2024-03-16] MEDS: FARXIGA 10 MG PO (10:02)
[2024-03-16] MEDS: IMDUR (EXTENDED RELEASE) 60 MG PO (10:02)
[2024-03-16] MEDS: ASPIR LOW (ENTERIC COATED) 81 MG PO (10:02)
[2024-03-16] MEDS: ELIQUIS 5 MG PO ×2 (10:02→20:51)
[2024-03-16] MEDS: SOLU-MEDROL PF 40 MG IV ×2 (10:02→20:51)
[2024-03-16] MEDS: LIDOCAINE 4% PATCH 1 PATCH TOPICAL (10:03)
--- NOTE | 2024-03-16 10:06 | W.PN.UPDATE ---
Update Note
Progress Note Update
-
I stopped ASA now that Eliquis is started. Eliquis has $0 dollar copay.
Babs has $0 copay => started.
-
[2024-03-16 11:17] VITALS: BP 139/81
--- NOTE | 2024-03-16 11:24 | CM ---
CM reviewed chart and pt with nursing
Anticipate dc tomorrow, no needs noted
Bedside meeting with pt- he noted he likely will not feel comfortable with dc until Wed
Plan is for him to continue at the [facility] on dc
He is already working with a community agency to secure an apt
He declined further homeless resources
Will drive self home
IMM verbally reviewed- copy provided to pt
Questions answered about the appeal process
Discharge Disposition- no needs, dc to [facility]
[2024-03-16 15:20] VITALS: BP 161/81
[2024-03-16] MEDS: CRESTOR 20 MG PO (17:20)
[2024-03-16 19:22] VITALS: BP 129/56
[2024-03-16] MEDS: BENADRYL 25 MG PO (20:51)
[2024-03-16 23:41] VITALS: BP 139/70
[2024-03-17 03:34] VITALS: BP 148/63
[2024-03-17 05:29] VITALS: BMI 40.1
[2024-03-17 07:42] VITALS: BP 132/56
[2024-03-17] MEDS: SYMBICORT 160/4.5 MCG INHALER 2 PUFF INH (08:04)
[2024-03-17] MEDS: ELIQUIS 5 MG PO (08:50)
[2024-03-17] MEDS: IMDUR (EXTENDED RELEASE) 60 MG PO (08:51)
[2024-03-17] MEDS: FARXIGA 10 MG PO (08:51)
[2024-03-17] MEDS: CARDIZEM CD 360 MG PO (08:51)
[2024-03-17] MEDS: VIBRAMYCIN 100 MG PO (08:51)
[2024-03-17] MEDS: ADDERALL 15 MG PO (08:51)
[2024-03-17] MEDS: COZAAR 100 MG PO (08:51)
[2024-03-17] MEDS: DELTASONE 40 MG PO (08:51)
[2024-03-17] MEDS: LIDOCAINE 4% PATCH 1 PATCH TOPICAL (08:52)
--- NOTE | 2024-03-17 09:39 | W.PN.CD ---
Today's Communication / Plan
-
Continue current cardiac regimen
F/u in our office 04/08/2024 at 3:40 pm
Na+/fluid restriction/daily weights
Cardiology will sign off
Impression / Plan
-
Acute hypoxic respiratory failure
- Influenza negative, COVID-19 negative
- Consider viral syndrome
- Known COPD/Restrictive lung disease with severely reduced DLCO
- Has known hx of HFpEF, off diuretic for about 1 WEEK at least prior to admit
AFib, new, Paroxysmal
- Was fast initially. Eva later. and 03/14/2024. Back to sinus now 03/16/2024
- Dilt had been 240 for CAD/cor spasm and now increased to 360 mg a day
- [id number] at least 4 (HF, HTN, Vascular Dz, age1)
- Discussed pros/cons of anticoagulation and he is agreeable to start and he will watch for signs/symptoms of bleeding.
- Continue the new Eliquis 5 mg BID - Compliance is a concern. Toay 03/17/2023 I reviewed the importance of adherence and risk of bleeding
- Stay off ASA
Elevated troponin, peak trop 0.077, started at <0.012, trop ordered for this afternoon from a non-ischemic myocardial injury from respiratory process and AFib
New NERI
- Likely from IV diuresis - now off Lasix.
- s/p IV Lasix, and plan to resume home dose of Lasix once Cr back to baseline (0.9)
- Cr is improved from1.6 to 1.2
HFpEF, chronic
- Precipitant was him not taking Lasix for one week
- Low-sodium diet, daily weight
- Daily Lasix, losartan, Farxiga
- As outpatient consider MRA (Aldactone)
- Goal weight 133 to 134 kg
Aortic stenosis, now moderate
CAD, nonobstructive with vasospasm
- Has been managed with dilt and nitrates
- Stable without chest pain
- Continue medical therapy, including aspirin, he has a history of low platelets but they have not been under 50
- Now off ASA as he is on Eliquis
COPD/Restrictive lung disease with severely reduced DLCO
HTN
Back pain
-CT without PE, dissection, and pleural effusion
CKD, manage by Dr. Cuellar
HLD, on rosuvastatin
Pre-diabetes, Hgba1c 5.8%
Klinefelter's
Obesity, BMI 40
Prior overdose requiring Narcan (fentanyl & cocaine)
Homelessness
Subjective:
No real dyspnea, still with waxing waning diffuse pain. No palps.
Data:
Echo 03/13/2024:
Normal left ventricular size and systolic function.
LV ejection fraction is 55-60% .
Moderate aortic stenosis.
Peak/mean gradients are 42/27mmHg.
Compared to the previous echo from 04/10/2023 there is no significant change
EKG 03/13/2023: AFib
Physical Exam
Vital Signs/Labs
Vital Signs
Temp Pulse Resp BP Pulse Ox
98.0 F 68 18 132/56 95
03/17/24 07:42 03/17/24 08:51 03/17/24 07:42 03/17/24 08:51 03/17/24 07:42
03/16/24 03/17/24 03/18/24
06:59 06:59 06:59
Actual Weight 133.402 kg 134.037 kg
03/16/24 07:24
03/16/24 07:24
PT 13.2 Sec (11.4-14.6) 03/13/24 06:12
INR 0.95 03/13/24 06:12
Magnesium 2.6 mg/dl (1.6-2.3) H 03/16/24 07:24
Triglycerides 53 mg/dl (10-149) 03/14/24 04:12
LDL Cholesterol, Calc 67 mg/dl 03/14/24 04:12
VLDL Cholesterol, Calc 10 mg/dl (0-30) 03/14/24 04:12
HDL Cholesterol 73 mg/dl 03/14/24 04:12
TSH 0.46 uIU/ml (0.47-4.68) L 03/14/24 04:12
Free T4 1.20 ng/dl (0.78-2.19) 03/14/24 04:12
03/13/24
06:12
Mly-I-Eypepawwqwa Pept 142
LAB Results
03/14/24 03/14/24 03/15/24
13:04 21:49 04:43
Troponin I 0.077 H* 0.072 H* 0.067 H*
03/15/24 03/15/24
06:26 10:00
Troponin I 0.057 H* Cancelled
Physical Exam
Constitutional: No acute distress
EENT: Anicteric
Cardiovascular: Rhythm & rate is regular, Pedal edema is absent and Systolic murmur present
Respiratory: Respiratory effort normal and Crackles Absent
GI: Soft and Distention absent
Neuro/Psych: AO x 3
Data Reviewed
-
Date of Service: March 17, 2024
[2024-03-17 10:33] LABS: Blood Urea Nitrogen 43 mg/dl (9-20); Calcium 8.6 mg/dl (8.4-10.2); Carbon Dioxide 33 mmol/L (22-30); Chloride 95 mmol/L (98-107); Estimated Creatinine Clearance 89 ml/min; Glucose 257 mg/dl (70-99); Magnesium 2.6 mg/dl (1.6-2.3); Phosphorus 3.6 mg/dl (2.5-4.5); Potassium 4.8 mmol/L (3.5-5.1); Sodium 135 mmol/L (135-145); eGFR > 60.00
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
--- NOTE | 2024-03-17 10:47 | W.DCSUMMARY ---
Addendum entered and electronically signed by Moe Castillo MD 03/17/24 13:07:
ASA also stopped
Addendum entered and electronically signed by Moe Castillo MD 03/17/24 12:25:
prednisone taper added to home meds -sent to pharmacy
Original Note:
Discharge Summary
Discharge Data
Date of Admission: 03/13/24
Date of Discharge: 03/17/24
-
Pending Results: No
Hospital Course
68yo M with Klinefelter's syndrome, COPD, HFpEF, CAD, severe restrictive lung disease with daytime sleepiness on Adderal, HTN, homeless from [facility] came with worsening of his usual pain in the back, pleuritic, found hypoxic. Pain is sharp,
radiating to the substernal area, mostly inspiratory and relieved by sitting up, rest and using inhalers. managed for recurrent Afib, COPD and CHF exacerbation. Breathing improved, remained not hypoxic without wheezing on the day of d/c. Medically
stable for d/c with adjusted rate control, diuretic and new Eliquis.
I have spent at least 37min reviewing chart, test results, communication with cosnultants and direct patient care
Patient was managed for:
#Chest and upper back pain, pleuritic, suspect musculoskeletal vs 2/2 COPD and CHF exacerbation
#CAD, stable
#Tachycardia, with PMHx of Afib, now in Afib again (paroxysmal)
#Coronary vasospasm
#Troponin elevation 2/2 Afib, non-ischemic myocardial injury
#Acute on Chronic HFpEF
#Acute hypoxic respiratory failure 2/2 restrictive lung disease with acute bronchitis
#leukocytosis
#Hx of alcohol abuse
#chronic thrombocytopenia with PMHx of splenectomy
#Essential HTN
#HLD
#Excessive daytime sleepiness
#Morbid obesity
Discharge Plan
-
Condition: Good
Diet: No restrictions
Activity: As tolerated
Driving Restrictions: No driving for 24 hours
Bathing Restrictions: OK to Shower
Blood Work: repeat TSH in 2-3 weeks with family doctor
Wound Care: Follow up in [facility] in 1 week
Referrals:
Nando Agustin DO [Family Provider] -
Jeanine Ramos CRNP [Specified Professional Personl] - 04/08/24 3:40 pm
Prescriptions:
New
diltiazem HCl 180 mg Capsule,Extended Release 24hr
360 mg PO DAILY Qty: 30 0RF
Eliquis 5 mg Tablet
5 mg PO BID Qty: 60 0RF
dapagliflozin propanediol 10 mg Tablet
10 mg PO DAILY Qty: 30 0RF
doxycycline hyclate 100 mg Capsule
100 mg PO Q12 Qty: 8 0RF
Continued
acetaminophen [Acetaminophen Extra Strength] 500 mg tablet
1,000 mg PO HSPRN PRN (Reason: mild pain)
dextroamphetamine-amphetamine 15 MG tablet
15 mg PO BID
isosorbide mononitrate 60 mg Tablet Extended Release 24 Hr
60 mg PO DAILY Qty: 30 0RF
losartan 100 mg Tablet
100 mg PO DAILY
rosuvastatin [Crestor] 10 mg Tablet
20 mg PO QPM
budesonide-formoterol [Symbicort] 160-4.5 mcg/actuation Hfa Aerosol Inhaler
2 puff inhalation R BID Qty: 1 0RF
aspirin 81 mg Tablet,Delayed Release (Dr/Ec)
81 mg PO DAILY
diphenhydramine HCl [Benadryl] 25 mg Capsule
25 mg PO HS
albuterol sulfate 90 mcg/actuation Hfa Aerosol Inhaler
2 puff INHALATION R Q6HPRN PRN (Reason: sob)
mometasone 50 mcg/actuation spray,non-aerosol
2 spray intranasal BIDPRN PRN (Reason: allergy symptoms)
Changed
furosemide 40 mg tablet
40 mg PO DAILY Qty: 0 0RF
Discontinued
diltiazem HCl 240 mg Capsule,Extended Release 24hr
240 mg PO DAILY Qty: 0 0RF
Discharge Orders:
Discharge Patient (As Directed); Ordered 03/17/24
Ordered By: Moe Castillo
Discharge Date and Time
Print Language: GEORGIAN
[2024-03-17 11:17] VITALS: BP 137/61
--- NOTE | 2024-03-17 12:57 | PTCARENOTE ---
Rn Flow vp product management-Patient states that when the auto claim representative saw him, he was instructed to stop Aspirin. Stoney texted Dr. Cota and informed what patient stated and what is documented in Dr. Dumont's note.
--- NOTE | 2024-03-17 13:28 | CM ---
Patient for d/c today.
Patient is staying at the [facility]
Patient has his own transportation.
Plan: d//c today, no needs.
== END 2024-03-17 14:04 | disposition home or self-care (01) | DRG 291 ==
LOC: 1 ACUTE 12:06
PROVIDERS: Internal Medicine Cardiovascular Disease; Nurse Practitioner Family; Student in an Organized Health Care Education/Training Program; ADMITTING PHYSICIAN Internal Medicine; CONSULT PHYSICIAN Internal Medicine Cardiovascular Disease; EMERGENCY PHYSICIAN Emergency Medicine; FAMILY PHYSICIAN Family Medicine
DX: I13.0 Hypertensive heart and chronic kidney disease with heart failure and stage 1 through stage 4 chronic kidney disease, or unspecified chronic kidney disease (principal); I50.33 Acute on chronic diastolic (congestive) heart failure; J96.01 Acute respiratory failure with hypoxia; J44.1 Chronic obstructive pulmonary disease with (acute) exacerbation; Z59.01 Sheltered homelessness; Z68.41 Body mass index [BMI] 40.0-44.9, adult; N17.9 Acute kidney failure, unspecified; J44.0 Chronic obstructive pulmonary disease with (acute) lower respiratory infection; J20.9 Acute bronchitis, unspecified; I5A Non-ischemic myocardial injury (non-traumatic); N18.9 Chronic kidney disease, unspecified; M79.89 Other specified soft tissue disorders; I25.111 Atherosclerotic heart disease of native coronary artery with angina pectoris with documented spasm; J98.4 Other disorders of lung; Q98.4 Klinefelter syndrome, unspecified; M54.6 Pain in thoracic spine; D69.6 Thrombocytopenia, unspecified; E78.00 Pure hypercholesterolemia, unspecified; I35.0 Nonrheumatic aortic (valve) stenosis; E05.90 Thyrotoxicosis, unspecified without thyrotoxic crisis or storm; F11.11 Opioid abuse, in remission; R73.03 Prediabetes; I48.91 Unspecified atrial fibrillation; F10.11 Alcohol abuse, in remission; D72.829 Elevated white blood cell count, unspecified; F90.9 Attention-deficit hyperactivity disorder, unspecified type; E66.01 Morbid (severe) obesity due to excess calories; Z90.81 Acquired absence of spleen; Z79.51 Long term (current) use of inhaled steroids; Z79.82 Long term (current) use of aspirin; Z88.8 Allergy status to other drugs, medicaments and biological substances; Z91.030 Bee allergy status; Z91.041 Radiographic dye allergy status; Z11.52 Encounter for screening for COVID-19; Z91.148 Patient's other noncompliance with medication regimen for other reason
CPT/HCPCS: 71275; 80048; 80053; 80061; 80306; 81003; 81015; 82077; 83605; 83690; 83735; 83880; 84100; 84145; 84439; 84443; 84484; 85025; 85610; 85652; 86140; 87502; 87811; 93005; 93306; 94640; 96374; 96375; 99285; Q9967

== ENCOUNTER 2024-05-30 08:05 | Inpatient (IN) | payer MEDICARE, SELFPAY ==
[2024-05-30] VITALS (10 sets, daily range): BP systolic 132–156; BP diastolic 62–119; BMI 38.5
--- NOTE | 2024-05-30 04:12 | ED.GENMED ---
History of Present Illness
General
Chief Complaint: Breathing Problem
Source: patient
Time Seen by Provider: 05/30/24 04:04
History of Present Illness
History of Present Illness:
69-year-old male presents emergency department with complaints of shortness of breath and dyspnea on exertion for the last 2 days. He did state that he had left-sided chest pain 'just a second', no sustained chest discomfort. He denies fever,
chills but he does have a productive cough without hemoptysis. He denies abdominal pain, nausea, vomiting. He does note worsening lower extremity edema bilaterally. Denies other complaints. He does note that he is living with someone for the
past week that is a smoker and he thinks that this is contributing to his symptoms.
Past History
Past History
ED Past Medical History: Asthma, CHF, HTN and Other (Klinefelter, obesity, leg edema, heart failure preserved ejection fraction, CAD, severe restrictive lung disease)
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 )
Social History
Tobacco: Non-smoker (Unknown)
Alcohol: None (Unknown)
Drug: Narcotics
Personal:
Living: alone
Phy Exam
Physical Exam
Physical Exam:
GENERAL: Alert , in no apparent distress
EYE: pupils equal and reactive
NECK: Supple, no significant adenopathy.
ENT: o/p clr, mmm.
CARDIAC: Regular rate and rhythm, systolic murmur noted.
LUNGS: Equal breath sounds bilaterally, mild tachypnea, diffuse wheezes noted, no active cough
ABDOMEN: Soft, without focal tenderness, no r/g, no cvat
NEUROLOGICAL: Alert and oriented, no focal neuro deficits
SKIN: Warm and dry, skin intact.
MUSCULOSKELETAL: 2+ bilateral lower EXTR edema, well perfused.
PSYCH: Normal and appropriate interaction.
Scores
Heart Failure Risk
Heart Failure Risk Score: Not Applicable
Course
Orders/Labs/Results
Orders:
Orders
05/30/24 04:06
EKG [Electrocardiogram (*1)] Urgent
Reason for Study: Chest Pain
EKG- Treatment ONCE
05/30/24 04:18
Cardiac Monitoring- Treatment ONCE
Albuterol Nebs [Ventolin Nebules] 2.5 mg INH R NOW STA
Dexamethasone Sod Phosphate [Decadron] 10 mg IV NOW STA
CR Chest - 2 Views Urgent
Comment:
Reason For Exam: sob
Pulse Ox/cont/shift [RESP] Stat
Quantity: 1
05/30/24 04:35
Complete Blood Count/No Diff Urgent
Comprehensive Metabolic Panel Urgent
NT-proBNP Urgent
Troponin I Urgent
05/30/24 Breakfast
Cholesterol Lowering
At Your Request: Full Participation
Cholesterol Lowering: Sodium, 2 Gram
05/30/24 07:14
Admit/Transfer Patient As Directed
Co-Sign Provider:
Level of Care: Inpatient admission
Assign to:: Medical/Surgical
Physician / Group: hospitalist
Diagnosis: acute bronchitis
Reason for Hospitalization: hypoxia
Expected length of stay greater than two midnights?: Yes
ELOS- Estimated Length of Stay in days: 2
I certify the patient meets the requirements for IP care: Yes
PRN Pain Medication Management As Directed
May give lesser potent ordered pain med per pt: Yes
preference::
Protocol:: Medication orders for pain may be administered in a
manner that supports deferring to patient preference
when the pt is:
- Requesting an ordered lesser potent pain medication.
Least to most potent pain medications are defined
as: acetaminophen < NSAID < tramadol < opioids
(morphine, oxycodone, hydromorphone).
- Requesting a lesser dose of the same medication IF
ORDERED.
- Requesting a less intrusive route of administration
if both routes are prescribed by the provider (PO <
IV).
05/30/24 07:16
Code Status As Directed
Resuscitation Status: Full Code
05/30/24 07:34
COVID-19 Antigen Stat
Source: Nasal Swab
05/30/24 10:43
Acetaminophen [Tylenol] 1,000 mg PO HSPRN PRN
Amphet Asp/Amphet/D-Amphet [Adderall] 15 mg PO TID
Aspirin Low Dose EC [Aspir Low (Enteric Coated)] 81 mg PO DAILY
Bisacodyl [Dulcolax] 10 mg RECTAL S53SDDS PRN
Diltiazem Extended Release [Cardizem Cd] 360 mg PO DAILY
Docusate W/Senna [Senokot-S] 1 tablet PO BID
Furosemide [Lasix] 40 mg PO BID AT 0800,1600
ISOSORBIDE MONOnitrate ER [Imdur (Extended Release)] 60 mg PO DAILY
Ipratropium/Albuterol Sulfate [Duoneb] 3 ml INH R Q3HPRN PRN
Ipratropium/Albuterol Sulfate [Duoneb] 3 ml INH R QID
Losartan [Cozaar] 100 mg PO DAILY
Montelukast Sodium [Singulair] 10 mg PO DAILY
Polyethylene Glycol Powder [Miralax] 17 grams PO DAILYPRN PRN
05/30/24 10:43
VTE Contraindication Routine
VTE Mechanical Device Contraindication: Medical Contraindication
Pharmocologic Contraindication: Medical Contraindication
Activity As Directed
Activity Level: With Assistance
Intake/ Output As Directed
Frequency: Per unit guidelines
Vital Signs As Directed
Frequency: Per unit guidelines
Weight As Directed
Frequency: Daily
Copd Education [RESP] Routine
O2 Therapy [RESP] Routine
Nasal Cannula Liter Flow: 2 LPM
Titrate/Wean O2 to maintain O2 sat greater than (%): 92
Special Instructions: adjust, if necessary, to avoid hyperoxia in CO2 retainers.
Use High Flow O2 if necessary
Peak Flow Rate [RESP] Routine
Quantity: 1
Pre-Bronchodilator: Yes
Post Bronchodilator: Yes
05/30/24 11:00
Azithromycin [Zithromax] 500 mg PO Q24H
Guaifenesin [Mucinex] 600 mg PO Q12
Prednisone [Deltasone] 60 mg PO DAILY
05/30/24 18:00
Rosuvastatin Calcium [Crestor] 10 mg PO QPM
05/30/24 22:00
Diphenhydramine [Benadryl] 25 mg PO HS
Abnormal Lab Results
05/30/24
04:35
RBC 4.20 L 10^6/uL
(4.70-6.10)
Hct 38.7 L %
(39.0-52.0)
MCH 31.4 H pg
(27.0-31.0)
RDW 14.7 H %
(11.5-14.5)
Carbon Dioxide 32 H mmol/L
(22-30)
Total Protein 6.2 L g/dl
(6.3-8.2)
Albumin 3.4 L g/dl
(3.5-5.0)
05/30/24 04:35
05/30/24 04:35
Vital Signs
Initial and Last Documented VS:
Initial Vital Signs
Temp Pulse Resp BP Pulse Ox
98.1 F 74 28 156/78 89
05/30/24 03:54 05/30/24 03:54 05/30/24 03:54 05/30/24 03:54 05/30/24 03:54
Last Documented Vital Signs
Temp Pulse Resp BP Pulse Ox
98.6 F 60 20 128/59 95
06/01/24 07:21 03/31/25 07:47 06/01/24 07:47 06/01/24 07:21 06/01/24 07:47
*Critical Care Note
Total Time (30-74mins, 75-104mins- exclusive of procedures): Not Applicable
Update Note
Update Note:
Patient presents to the Emergency Department with shortness of breath____
Number and Complexity of Problems Addressed at the Encounter
� Chronic conditions affecting care:
� Acute Exacerbation and/or Progression of Chronic Illness:
� Differential Diagnosis includes: But not limited to COPD exacerbation, heart failure, ACS, etc. etc.
Amount and/or Complexity of Data to be Reviewed and Analyzed
� I performed an independent evaluation of and my interpretation is:
EKG: Read by me, normal sinus rhythm, normal rate, normal axis, no acute ischemia
CT:
Xrays: Read by me chest x-ray NAD
Laboratory Studies: BMP unremarkable, troponin unremarkable, normal white blood cell count
Other:
� Review of other/old records reveals:
� Clinical information was obtained by an independent historian:
� Prescriptions/Medications Considered but not given:
� Further testing considered but not performed:
Risk of Complications and/or Morbidity or Mortality of Patient Management
� Social determinants of health affecting care:
� Discussion with other providers (PCP, Hospitalists, Consultants, etc):
6:26 AM patient resting comfortably, suspect COPD exacerbation, given steroids and nebs recommend observation continued management. Case discussed with hospitalist via [place] text.
� Escalation of care including admission/observation vs risk of discharge considered:
ED Attending Note
-
Portions of this chart may have been created with voice recognition software.� Occasional wrong word or��sound alike� substitutions may have occurred due to the inherent limitations of voice recognition software.
Discharge Plan
Departure
Patient Disposition: Admit
Date of Disposition: 05/30/24
Time of Disposition: 06:26
Admit to: Telemetry
Presentation/result/management discussed w/ accepting MD/DO: Hospitalist
Condition: Fair
Discharge Problem:
COPD exacerbation
Interventions
Interventions:
*Risk Screen - Suicide Last Done: 05/30/24 03:54
*General Assessment Last Done: 05/30/24 03:54
*Neglect/Abuse Screening Last Done: 05/30/24 03:54
*ED- Fall Risk Assessment Last Done: 05/30/24 03:54
*ED COVID-19 Vaccine History Last Done: 05/30/24 04:45
*Nursing Disposition Last Done: 05/30/24 12:20
ED- Cardiac Assessment Last Done: 05/30/24 07:15
ED- Pulmonary Assessment Last Done: 05/30/24 07:13
Discharge Date and Time
Discharge Date/Time: 05/30/24 12:21
[2024-05-30] MEDS: DECADRON 10 MG IV (04:40)
[2024-05-30] MEDS: VENTOLIN NEBULES 2.5 MG INH (04:40)
[2024-05-30 04:46] LABS: Hematocrit 38.7 % (39.0-52.0); Hemoglobin 13.2 g/dL (13.0-18.0); Mean Corp Hgb Conc. 34.1 g/dL (33.0-37.0); Mean Corpuscular Hgb 31.4 pg (27.0-31.0); Mean Corpuscular Volume 92.1 fL (80.0-94.0); Mean Platelet Volume 10.4 fL (7.4-10.4); Platelet Count 178 10^3/uL (130-400); Red Cell Dist. Width 14.7 % (11.5-14.5); White Blood Cell Count 9.6 10^3/uL (4.8-10.8)
[2024-05-30 05:10] LABS: ALT (SGPT) 14 U/L (0-50); AST (SGOT) 22 U/L (17-59); Albumin 3.4 g/dl (3.5-5.0); Alkaline Phosphatase 58 U/L (38-126); Blood Urea Nitrogen 16 mg/dl (9-20); Calcium 9.1 mg/dl (8.4-10.2); Carbon Dioxide 32 mmol/L (22-30); Chloride 104 mmol/L (98-107); Estimated Creatinine Clearance 107 ml/min; Glucose 99 mg/dl (70-99); NT-proBNP 286 pg/ml; Potassium 4.5 mmol/L (3.5-5.1); Sodium 139 mmol/L (135-145); Total Bilirubin 1.2 mg/dl (0.2-1.3); Total Protein 6.2 g/dl (6.3-8.2); eGFR > 60.00
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
[2024-05-30 07:59] LABS: COVID-19 Antigen Negative (Negative)
[2024-05-30] MEDS: COZAAR 100 MG PO (11:22)
[2024-05-30] MEDS: DELTASONE 60 MG PO (11:22)
[2024-05-30] MEDS: SINGULAIR 10 MG PO (11:23)
[2024-05-30] MEDS: LASIX 40 MG PO ×2 (11:23→17:20)
[2024-05-30] MEDS: ZITHROMAX 500 MG PO (11:23)
[2024-05-30] MEDS: MUCINEX 600 MG PO ×2 (11:23→20:26)
[2024-05-30] MEDS: ASPIR LOW (ENTERIC COATED) 81 MG PO (11:23)
[2024-05-30] MEDS: SENOKOT-S 1 TABLET PO ×2 (11:24→20:26)
[2024-05-30] MEDS: ADDERALL 15 MG PO ×2 (11:24→17:19)
[2024-05-30] MEDS: CARDIZEM CD 360 MG PO (11:24)
[2024-05-30] MEDS: IMDUR (EXTENDED RELEASE) 60 MG PO (11:24)
[2024-05-30] MEDS: DUONEB 3 ML INH ×3 (11:34→20:19)
[2024-05-30] MEDS: DUONEB INH (12:02)
--- NOTE | 2024-05-30 14:17 | W.PN.HOSP.TC ---
Today's Communication/Plan
-
Assessment / Plan
Assessment / Plan
General: No Apparent Distress, Comfortable
HEENT: NormoCephalic, Moist mucous membranes, Atraumatic
Respiratory: Mild expiratory wheezes bilaterally, Non Labored Respirations
Cardiac: S1/S2 and Regular Rhythm; No Rub or Gallop
GI: Soft, Non Tender, Non Distended and Normal Bowel Sounds
Musculoskeletal: Minimal pedal edema, no deformity
Skin: Warm and dry
: NO Alvarez
Neuro: Nonfocal/grossly intact, no tremor
Psych: Calm
Mr. 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
Klinefelter syndrome who presented with dyspnea on exertion. He was hypoxic to 88% on room air with bilateral wheezing upon arrival. He was given nebulizer treatments and IV steroids with improvement in his respiratory status. His pulse ox
improved with supplemental oxygen via nasal cannula. He has been admitted for further evaluation and management of COPD with acute exacerbation.
COPD with acute exacerbation:
-Continue scheduled steroids and nebulizer treatments with additional nebulizers as needed
-Azithromycin 500 mg daily
-Mucinex
-Supplemental oxygen as needed, wean as able
-Continue montelukast
HFpEF:
-Currently compensated
-Does not appear to be on beta-kristi
-Continue afterload reduction with losartan 100 mg daily and Imdur 60 mg daily
-Continue scheduled Lasix 40 mg p.o. twice daily
A-fib:
-Currently rate controlled
-Continue home diltiazem 360 mg daily
-Will have to confirm whether or not he is still taking Eliquis for anticoagulation which he was started on during last admission here in March 2024
CAD:
-Stable
-Continue low-dose aspirin, rosuvastatin 10 mg nightly
Constipation:
-Scheduled Senokot
-MiraLAX as needed
CODE STATUS: Full code
Anticipated Discharge: 24 - 48 hours
Subjective/Interval History
-
Date of Service: May 30, 2024
Patient was seen and examined at bedside this morning. Resting comfortably. Appears to be breathing more comfortably after nebulizer treatments and IV steroids.
Objective Data
-
Labs:
Laboratory Results
05/30/24
04:35
WBC 9.6
Hgb 13.2
Hct 38.7 L
Plt Count 178
Sodium 139
Potassium 4.5
Chloride 104
Carbon Dioxide 32 H
BUN 16
Creatinine 0.9
Glucose 99
Calcium 9.1
Total Bilirubin 1.2
AST 22
ALT 14
Alkaline Phosphatase 58
Vital Signs:
Vital Signs
Temp Pulse Resp BP Pulse Ox
98.5 F 67 16 159/72 96
05/30/24 07:00 05/30/24 12:03 05/30/24 12:03 05/30/24 11:24 05/30/24 12:03
I&O
05/29/24 05/30/24 05/31/24
06:59 06:59 06:59
Intake Total 320 / 320
Output Total 995 / 995
Balance -675 / -675
Review of Systems
-
History Source: Patient
All other systems: Reviewed and negative
Physical Exam
-
General: No Apparent Distress
--- NOTE | 2024-05-30 15:59 | CM ---
CM met with pt bedside
Pt is unhoused, he typically has been staying at the [facility] throughout the past few months
He [place] lready connected with homeless services in the [place]
He recently has been staying with a woman he met through the shelters in a motel in [facility]
Pt has no DMEs
He has been [facility] and is working with an agent on permanent housing
PCP- Nando Agustin
Rx- [facility] [address]
Pt notes he had plans in place to go to [place] to live with friend
They were going to buy him a plane ticket
He later said the FBI would actually be the ones to escort him to [place] via plane for a court case regarding his stolen identity
Discharge Disposition- TBD, watch for VN and home O2 needs
[2024-05-30] MEDS: CRESTOR 10 MG PO (17:19)
[2024-05-30] MEDS: HYDROCORTISONE 1% CREAM 1 APPLIC TOPICAL (21:30)
[2024-05-30] MEDS: BENADRYL 25 MG PO (22:12)
[2024-05-30] MEDS: ADDERALL PO (22:25)
[2024-05-31 06:00] VITALS: BMI 38.3
[2024-05-31 07:00] VITALS: BP 144/61
[2024-05-31] MEDS: DUONEB 3 ML INH ×4 (07:51→20:03)
[2024-05-31] MEDS: CARDIZEM CD 360 MG PO (10:19)
[2024-05-31] MEDS: ZITHROMAX 500 MG PO (10:19)
[2024-05-31] MEDS: ADDERALL 15 MG PO ×3 (10:20→17:39)
[2024-05-31] MEDS: MUCINEX 600 MG PO ×2 (10:21→21:00)
[2024-05-31] MEDS: IMDUR (EXTENDED RELEASE) 60 MG PO (10:21)
[2024-05-31] MEDS: SINGULAIR 10 MG PO (10:21)
[2024-05-31] MEDS: LASIX 40 MG PO ×2 (10:22→17:38)
[2024-05-31] MEDS: ASPIR LOW (ENTERIC COATED) 81 MG PO (10:23)
[2024-05-31] MEDS: COZAAR 100 MG PO (10:23)
[2024-05-31] MEDS: DELTASONE 60 MG PO (10:23)
[2024-05-31] MEDS: SENOKOT-S 1 TABLET PO ×2 (10:24→21:00)
[2024-05-31 10:28] LABS: Blood Urea Nitrogen 27 mg/dl (9-20); Calcium 9.1 mg/dl (8.4-10.2); Carbon Dioxide 32 mmol/L (22-30); Chloride 99 mmol/L (98-107); Estimated Creatinine Clearance 107 ml/min; Glucose 212 mg/dl (70-99); Potassium 4.4 mmol/L (3.5-5.1); Sodium 137 mmol/L (135-145); eGFR > 60.00
[2024-05-31] MEDS: HYDROCORTISONE 1% CREAM 1 APPLIC TOPICAL ×2 (11:14→21:02)
[2024-05-31 15:00] VITALS: BP 134/63
--- NOTE | 2024-05-31 15:32 | W.PN.HOSP.TC ---
Today's Communication/Plan
-
Assessment / Plan
Assessment / Plan
General: No Apparent Distress, Comfortable
HEENT: NormoCephalic, Moist mucous membranes, Atraumatic
Respiratory: Mild expiratory wheezes bilaterally which seem forced and originating from upper airway, Non Labored Respirations
Cardiac: S1/S2 and Regular Rhythm; No Rub or Gallop
GI: Soft, Non Tender, Non Distended and Normal Bowel Sounds
Musculoskeletal: Minimal pedal edema, no deformity
Skin: Warm and dry
: NO Alvarez
Neuro: Nonfocal/grossly intact, no tremor
Psych: Calm and cooperative
Mr. 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
Klinefelter syndrome who presented with dyspnea on exertion. He was hypoxic to 88% on room air with bilateral wheezing upon arrival. He was given nebulizer treatments and IV steroids with improvement in his respiratory status. His pulse ox
improved with supplemental oxygen via nasal cannula. He has been admitted for further evaluation and management of COPD with acute exacerbation.
COPD with acute exacerbation:
-Improving
-Continue scheduled steroids, can transition to tapering dose tomorrow 06/01
-Continue scheduled nebulizer treatments with additional treatments as needed
-Azithromycin 500 mg daily
-Mucinex
-Supplemental oxygen as needed, only requiring 1 to 2 L, wean as able
-Continue montelukast
-Anticipate he will be stable for discharge tomorrow 06/01, case management involved for assistance considering he is homeless
HFpEF:
-Currently compensated
-Does not appear to be on beta-kristi
-Continue afterload reduction with losartan 100 mg daily and Imdur 60 mg daily
-Continue scheduled Lasix 40 mg p.o. twice daily
A-fib:
-Currently rate controlled
-Continue home diltiazem 360 mg daily
-Patient declines any anticoagulation despite being advised of the stroke risk, he feels the bleeding risk is too great for him
CAD:
-Stable
-Continue low-dose aspirin, rosuvastatin 10 mg nightly
Constipation:
-Scheduled Senokot
-MiraLAX as needed
CODE STATUS: Full code
Anticipated Discharge: 24 - 48 hours
Subjective/Interval History
-
Date of Service: May 31, 2024
Patient was seen and examined morning. Feeling well, mild ongoing wheezing.
Objective Data
-
Labs:
Laboratory Results
05/31/24 05/31/24
07:28 09:00
Sodium Cancelled 137
Potassium Cancelled 4.4
Chloride Cancelled 99
Carbon Dioxide Cancelled 32 H
BUN Cancelled 27 H
Creatinine Cancelled 0.9
Glucose Cancelled 212 H
Calcium Cancelled 9.1
Vital Signs:
Vital Signs
Temp Pulse Resp BP Pulse Ox
97.6 F 70 17 144/61 96
05/31/24 07:00 05/31/24 15:26 05/31/24 15:26 05/31/24 07:00 05/31/24 15:26
I&O
05/30/24 05/31/24 06/01/24
06:59 06:59 06:59
Intake Total 1280 / 1280
Output Total 1895 / 1895
Balance -615 / -615
Review of Systems
-
History Source: Patient
All other systems: Reviewed and negative
Respiratory: Reports Cough and Trouble Breathing
Physical Exam
-
General: No Apparent Distress
[2024-05-31] MEDS: CRESTOR 10 MG PO (17:38)
[2024-05-31] MEDS: MAALOX 30 ML PO (21:00)
[2024-05-31] MEDS: BENADRYL 25 MG PO (22:53)
[2024-05-31 23:00] VITALS: BP 159/71
[2024-06-01 05:22] VITALS: BMI 38.3
[2024-06-01 07:21] VITALS: BP 128/59
[2024-06-01] MEDS: DUONEB 3 ML INH ×2 (07:44→11:25)
[2024-06-01] MEDS: LASIX 40 MG PO (08:19)
[2024-06-01] MEDS: ADDERALL 15 MG PO ×2 (08:19→11:38)
[2024-06-01] MEDS: DELTASONE 60 MG PO (08:19)
[2024-06-01] MEDS: IMDUR (EXTENDED RELEASE) 60 MG PO (08:19)
[2024-06-01] MEDS: MUCINEX 600 MG PO (08:19)
[2024-06-01] MEDS: ASPIR LOW (ENTERIC COATED) 81 MG PO (08:19)
[2024-06-01] MEDS: HYDROCORTISONE 1% CREAM 1 APPLIC TOPICAL (08:20)
[2024-06-01] MEDS: SENOKOT-S 1 TABLET PO (08:20)
[2024-06-01] MEDS: COZAAR 100 MG PO (08:20)
[2024-06-01] MEDS: CARDIZEM CD 360 MG PO (08:20)
[2024-06-01] MEDS: SINGULAIR 10 MG PO (08:20)
--- NOTE | 2024-06-01 09:52 | W.PN.HOSP.TC ---
Today's Communication/Plan
-
Discharge
Assessment / Plan
Assessment / Plan
General: No Apparent Distress, Comfortable
HEENT: NormoCephalic, Moist mucous membranes, Atraumatic
Respiratory: Mild expiratory wheezes bilaterally
Cardiac: S1/S2 and Regular Rhythm; No Rub or Gallop
GI: Soft, Non Tender, Non Distended and Normal Bowel Sounds
Musculoskeletal: Minimal pedal edema, no deformity
Skin: Warm and dry
: NO Alvarez
Neuro: Nonfocal/grossly intact, no tremor
Psych: Calm and cooperative
Mr. 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
Klinefelter syndrome who presented with dyspnea on exertion. He was hypoxic to 88% on room air with bilateral wheezing upon arrival. He was given nebulizer treatments and IV steroids with improvement in his respiratory status. His pulse ox
improved with supplemental oxygen via nasal cannula. He has been admitted for further evaluation and management of COPD with acute exacerbation.
COPD with acute exacerbation:
-Improving, add Acapella.
-Start steroid taper
-Continue scheduled nebulizer treatments with additional treatments as needed
-Azithromycin 500 mg daily
-Mucinex
Now off oxygen, stable on room air.
-Continue montelukast
Chronic HFpEF:
-Currently compensated
-Does not appear to be on beta-kristi
-Continue afterload reduction with losartan 100 mg daily and Imdur 60 mg daily
-Continue scheduled Lasix 40 mg p.o. twice daily
A-fib, unknown type
-Currently rate controlled
-Continue home diltiazem 360 mg daily
-Patient declines any anticoagulation despite being advised of the stroke risk, he feels the bleeding risk is too great for him
CAD:
-Stable
-Continue low-dose aspirin, rosuvastatin 10 mg nightly
Constipation:
-Scheduled Senokot
-MiraLAX as needed
CODE STATUS: Full code
Dispo -medically stable for discharge, social work to arrange for custodial placement. Patient is houseless.
35 minutes spent in discharge process.
Anticipated Discharge: Today
Subjective/Interval History
-
Date of Service: June 01, 2024
Patient seen and examined. Complaining of cough.
Objective Data
-
Vital Signs:
Vital Signs
Temp Pulse Resp BP Pulse Ox
98.6 F 60 20 128/59 95
06/01/24 07:21 06/01/24 07:47 06/01/24 07:47 06/01/24 07:21 06/01/24 07:47
I&O
05/31/24 06/01/24 06/02/24
06:59 06:59 06:59
Intake Total 1280 / 1280 1440 / 1440
Output Total 1895 / 1895 650 / 650
Balance -615 / -615 790 / 790
Review of Systems
-
History Source: Patient
All other systems: Reviewed and negative
--- NOTE | 2024-06-01 10:01 | W.DS.TRANS ---
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
-
Discharge Instructions:
Discharge Diagnosis/Procedures COPD exacerbation
Diet Low Fat,Low Cholesterol,2 Gram Sodium
Activity As tolerated
Driving Restrictions As prior to admission
Bathing Restrictions None
Instructions:
Stand-Alone Forms:
Changes to Home Medications: No
Discharge Medications:
DC Medications w/original date entered in copygram
acetaminophen 500 mg tablet (Acetaminophen Extra Strength) 1,000 mg PO HSPRN PRN mild pain 04/10/23
dextroamphetamine-amphetamine 15 mg tablet 15 mg PO TID ADHD 04/10/23
isosorbide mononitrate 60 mg tablet,extended release 24 hr 60 mg PO DAILY #30 tabs 04/12/23
losartan 100 mg tablet 100 mg PO DAILY Blood Pressure 06/02/23
diphenhydramine HCl 25 mg capsule (Benadryl) 25 mg PO HS Sleep 03/13/24
albuterol sulfate 90 mcg/actuation aerosol inhaler 2 puff inhalation R Q6HPRN PRN shortness of breath 05/30/24
aspirin 81 mg tablet,delayed release 81 mg PO DAILY 05/30/24
budesonide-formoterol HFA 160 mcg-4.5 mcg/actuation aerosol inhaler (Symbicort) 2 inh inhalation R BID 05/30/24
diltiazem HCl 240 mg capsule,extended release 24 hr 240 mg PO DAILY 05/30/24
mometasone 50 mcg/actuation nasal spray 2 spray intranasal BIDPRN PRN allergies 05/30/24
montelukast 10 mg tablet 10 mg PO DAILY 05/30/24
diltiazem HCl 360 mg capsule,extended release 24 hr 360 mg PO DAILY #30 caps 06/01/24
furosemide 40 mg tablet 40 mg PO BID AT 0800,1600 #60 tabs 06/01/24
guaifenesin 600 mg tablet, extended release 12 hr 600 mg PO Q12 #20 tabs 06/01/24
hydrocortisone 1 % topical cream 1 applic topical BID #28.35 grams 06/01/24
prednisone 10 mg tablet 10 mg PO DAILY #20 tabs 06/01/24
rosuvastatin 10 mg tablet 10 mg PO QPM #0 tabs 06/01/24
Home Medication Changes
Pending Results: No
[2024-06-01 10:55] VITALS: BP 127/57
[2024-06-01] MEDS: ZITHROMAX 500 MG PO (11:38)
--- NOTE | 2024-06-01 14:34 | CM ---
Addendum entered by Wendy Camara 06/01/24 16:08:
[facility] lawson is at 5pm, patient needs to be there at 4:45pm.
Original Note:
photography manager continues to follow with patient and has been following with various churches in [facility] that have been assisting patient from time to time over the past 3 years, with accommodation, [facility], [place], [facility], [facility] etc., Patient
has been set up with the [employer] about 7 years ago and patient still has not secured housing, per patient he is moving to [place], patient states his checks are depositerd to PO box.
Plan; Patient has been approved for [address] [facility] in [place]. Starting tonight, rehabilitation case coordinator will discuss transport to [facility].
[2024-06-01 14:46] VITALS: BP 110/56
[2024-06-01] MEDS: DUONEB INH (15:34)
== END 2024-06-01 17:00 | disposition home or self-care (01) | DRG 191 ==
LOC: 4 WEST ACU 08:05
PROVIDERS: Internal Medicine; ADMITTING PHYSICIAN Internal Medicine; ATTENDING PHYSICIAN Hospitalist; EMERGENCY PHYSICIAN Emergency Medicine; FAMILY PHYSICIAN Family Medicine
DX: J44.1 Chronic obstructive pulmonary disease with (acute) exacerbation (principal); I48.20 Chronic atrial fibrillation, unspecified; I50.32 Chronic diastolic (congestive) heart failure; J98.11 Atelectasis; Z59.00 Homelessness unspecified; G47.33 Obstructive sleep apnea (adult) (pediatric); I11.0 Hypertensive heart disease with heart failure; I48.0 Paroxysmal atrial fibrillation; I25.10 Atherosclerotic heart disease of native coronary artery without angina pectoris; E66.01 Morbid (severe) obesity due to excess calories; Z68.38 Body mass index [BMI] 38.0-38.9, adult; Z79.82 Long term (current) use of aspirin; Z77.22 Contact with and (suspected) exposure to environmental tobacco smoke (acute) (chronic)
CPT/HCPCS: 71046; 80048; 80053; 83880; 84484; 85027; 87811; 93005; 94640; 94760; 96374; 99285

== ENCOUNTER 2024-08-16 09:21 | Inpatient (IN) | payer MEDICARE, SELFPAY ==
[2024-08-16] VITALS (29 sets, daily range): BP systolic 62–134; BP diastolic 36–83; BMI 32.8; BMI 33.9
[2024-08-16 07:23] LABS: % Basophils 0.6 % (0-2); % Eosinophils 1.1 % (0-6); % Immature Granulocytes 0.4 % (0-0.5); % Lymphocytes 12.2 % (20.5-51.1); % Neutrophils 76.7 % (42.2-75.2); Absolute Basophils 0.1 10^3/uL (0-0.2); Absolute Eosinophils 0.1 10^3/uL (0-0.7); Absolute Lymphocytes 1.4 10^3/uL (1.2-3.4); Absolute Neutrophils 8.7 10^3/uL (1.4-6.5); Hematocrit 51.8 % (39.0-52.0); Hemoglobin 17.6 g/dL (13.0-18.0); Mean Corpuscular Hgb 30.9 pg (27.0-31.0); Mean Corpuscular Volume 90.9 fL (80.0-94.0); Mean Platelet Volume 11.7 fL (7.4-10.4); Nucleated Red Blood Cells % 0 % (-); Platelet Count 152 10^3/uL (130-400); Red Cell Dist. Width 13.2 % (11.5-14.5); White Blood Cell Count 11.4 10^3/uL (4.8-10.8)
--- NOTE | 2024-08-16 07:29 | ED.GENMED ---
History of Present Illness
General
Chief Complaint: Chest Pain
Source: patient and ambulance crew
Exam Limitations: none
Time Seen by Provider: 08/16/24 07:29
Nursing documentation reviewed up to this point in time: agreed with
History of Present Illness
History of Present Illness:
Note:
CHIEF COMPLAINT(S)
Chest pain, nausea, and abdominal discomfort.
HISTORY OF PRESENT ILLNESS
The patient is a 69-year-old male presenting with chest pain, nausea, and abdominal discomfort. He reports the onset of chest pain approximately one week ago, describing it as persistent and accompanied by nausea. The pain radiates to his arm and
back. He also notes a low abdominal pain that he identified by pointing with his hand. The patient denies any previous history of myocardial infarction but recounts a similar episode in the past without specific findings. EMS administered aspirin
before arrival.
The patient mentions a prior heart catheterization a year ago where no blockages were found. His current symptoms worsened in the preceding 20 feet of exertion before admission, describing severe fatigue. He reports a history of heart failure and is
on medications including Lasix, atenolol, and diltiazem for blood pressure management.
ADDITIONAL HISTORY OBTAINED FROM SOURCES OTHER THAN THE PATIENT
According to EMS, they administered aspirin pre-arrival.
CHRONIC MEDICAL CONDITIONS SIGNIFICANTLY AFFECTING CARE
- Heart failure
- Hypertension
- History of atrial fibrillation
MEDICATIONS
- Lasix (Furosemide), last taken yesterday
- Atenolol
- Diltiazem
REVIEW OF SYSTEMS
- Cardiovascular: Chest pain radiating to arm and back, history of heart failure.
- Gastrointestinal: Nausea, low abdominal pain.
- General: Fatigue with exertion, lasting for a week.
PHYSICAL EXAM
- General Appearance: Patient appears uncomfortable.
- Cardiovascular: Hypotensive, bradycardia noted.
- Lungs: Clear bilaterally.
- Abdomen: Scars present bilaterally.
PLAN
- Administer intravenous fluids.
- Conduct blood tests.
- Perform a computed tomography scan.
- Provide anti-nausea medication.
- Closely monitor the patients blood pressure and overall cardiac status.
DIFFERENTIAL DIAGNOSIS
The Differential Diagnosis includes, in no particular order and is not limited to:
1. Acute Coronary Syndrome
2. Myocardial Ischemia
3. Heart Failure Exacerbation
4. Aortic Dissection
5. Pulmonary Embolism
6. Gastroesophageal Reflux Disease
7. Musculoskeletal Pain
8. Peptic Ulcer Disease
9. Pericarditis
10. Abdominal Aortic Aneurysm
CARE-UPDATE
08/16/24 - 08:18
Blood pressure continues to be critically low at 60s/40s with mild bradycardia in the 40s and 50s range. IV line infiltrated during a contrasted CT scan, showing no acute findings on a non-contrasted chest, abdomen, and pelvis CT. Elevated troponin
was discussed with cardiology; a midline or PICC line will be obtained to ensure secure access prior to possibly starting vasopressors, with plans for ICU transfer pending improved IV access.
Disposition:
SUMMARY OF ENCOUNTER
The patient, a 69-year-old male, was seen in the emergency department for chest pain radiating to the arm and back, nausea, and abdominal discomfort persisting for a week. His symptoms worsened with exertion. The patient has a history of heart
failure and has been on Lasix, atenolol, and diltiazem for blood pressure management. The emergency department management included administration of IV fluids, close monitoring of blood pressure, and anti-nausea medication. An elevated troponin
level was identified, and cardiology was consulted for further evaluation.
DISPOSITION
Admit.
CONSIDERATION FOR ADMISSION
The patient was considered for admission due to persistent chest pain and the need for cardiac catheterization.
ASSESSMENT
The patient presents with symptoms suggestive of acute coronary syndrome, myocardial ischemia, or heart failure exacerbation.
MANAGEMENT OF THE PATIENTS CARE WAS DISCUSSED WITH
Cardiology: Consultation occurred, with discussions surrounding the elevated troponin levels and the potential requirement for cardiac catheterization.
PLAN
Admit the patient for cardiac catheterization and initiate treatment with Ibupren. Continuous monitoring of cardiac status and blood pressure management will be implemented.
INDEPENDENT INTERPRETATION OF TESTS
My independent interpretation of the CT scan indicates no acute findings in the chest, abdomen, or pelvis, pancreatic head mass seen.
MEDICATION RECONCILIATION
Lasix (Furosemide), Atenolol, Diltiazem as outpatient medications.
Aspirin administered pre-arrival by EMS.
Anti-nausea medication provided during the emergency department visit.
MEDICAL DECISION MAKING
Number and Complexity of Problems Addressed: The patients acute presentation of chest pain with radiation, possible acute coronary syndrome, and history of heart failure and hypertension necessitates comprehensive evaluation and management.
Data: Testing and imaging were conducted, revealing elevated troponin affecting management decisions. CT imaging provided no acute findings.
Risk: Consideration for potential hospitalization due to the severity and persistence of symptoms, elevated troponin levels, and the need for cardiac monitoring and intervention. The patient was evaluated for admission, and IV fluids were
administered.
Past History
Past History
ED Past Medical History: Asthma, CHF, HTN and Other (Klinefelter, obesity, leg edema, heart failure preserved ejection fraction, CAD, severe restrictive lung disease)
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 )
Social History
Tobacco: Non-smoker (Unknown)
Alcohol: None (Unknown)
Drug: Narcotics
Personal:
Living: alone
Phy Exam
Physical Exam
Physical Exam:
.
Scores
Heart Score for Chest Pain Patients
STEMI patient?: No
History: Highly Suspicious
ECG: Nonspecific Repolarization
Age: >/= 65 years
Risk Factors: 1 or 2 Risk Factors
Troponin: >/= 3 x Normal Limit
Heart Score for Chest Pain Patients: 8
Heart Score Risk: 72.7 % MACE over next 6 weeks
Course
Orders/Labs/Results
Orders:
Orders
08/16/24 06:50
EKG [Electrocardiogram (*1)] Urgent
Reason for Study: Chest Pain
08/16/24 06:51
EKG- Treatment ONCE
08/16/24 07:10
Cardiac Monitoring- Treatment ONCE
IV Insert/Care/Rem.- Treatment PRN
Pulse Ox/spot Check [RESP] Urgent
Quantity: 1
Special Instructions: ON ROOM AIR
08/16/24 07:16
Complete Blood Count/With Diff Urgent
Comprehensive Metabolic Panel Urgent
Lipase Urgent
Comment: ADD ON
Troponin I Urgent
08/16/24 07:20
EKG [Electrocardiogram (*1)] Urgent
Reason for Study: Bradycardia / Tachycardia
EKG- Treatment ONCE
08/16/24 07:29
CT Chest/abd/pelvis Angio W/wo Urgent
Comment:
Reason For Exam: 1wk chest and abdominal pain, arsenio, low bp,
IV Insert/Care/Rem.- Treatment PRN
0.9% Sodium Chloride 1000 ml [Nss] 2,000 ml IV BOLUS
Ondansetron Injectable [Zofran] 4 mg IV NOW STA
08/16/24 07:30
Blood Culture Q30M
VIDYA Source: Blood/Venous
Specimen Description:
0.9% Sodium Chloride 1000 ml [Nss] 1,000 ml IV BOLUS
08/16/24 07:31
0.9% Sodium Chloride 1000 ml [Nss] 1,000 ml IV BOLUS
08/16/24 07:41
NORepinephrine 4 MG/250 ML [Levophed] 4 mg in 250 ml .ROUTE .STK-MED
08/16/24 08:04
Add On- LAB Urgent
Tests Added?: lipase
08/16/24 08:08
PICC Line As Directed
08/16/24 08:46
Lactic Acid Q4H
Comment: CANCEL 2nd LACTIC ACID IF 1st LACTIC ACID IS LESS THAN 2
08/16/24 08:50
Blood Culture Q30M
VIDYA Source: Blood/Venous
Specimen Description:
08/16/24 08:53
PTT Urgent
Comment: Obtain baseline before beginning heparin infusion if not already collected
Heparin 4,000 units IV NOW STA
Pharmacy Request to Place See Dose Instructions PO NOW STA
Discontinue all Active Warfarin orders?: Yes
Nursing to Place Non Medication Order As Directed
Physician Order: PTT 6 hours after initial start of Heparin infusion
08/16/24 09:00
Heparin 68200 Units/250 ml 25,000 units in 250 ml IV PER PROTOCOL
Weight to be used for heparin protocol in kilograms (kg):: 112.9
Protocol:: Cardiac Tx/Acute Coronary
PTT Goal Range to be used:: PTT 73 to 111 seconds
Order type:: Initial
INITIAL Infusion Dose (UNITS/KG/hr) & then follow protocol:: 12 units/kg/hr
Infusion Dose in UNITS/hr & then follow protocol (UNITS/hr):: 1,000
INFUSION RATE in mL/hr & then follow protocol (mL/hr):: 10
PTT less than or equal to 64 seconds:: Increase rate by 200 units/hr (+ 2 mL/hr)
PTT 64.1 to 72.9 seconds:: Increase rate by 100 units/hr (+ 1 mL/hr)
PTT 73 to 111 seconds:: Target Range. No change in rate.
PTT 111.1 to 130.9 seconds:: Decrease rate by 100 units/hr (- 1 mL/hr)
PTT 131 to 199.9 seconds:: HOLD for 1 hr. Then decrease rate by 200 units/hr (- 2 mL/hr)
PTT greater than or equal to 200 seconds:: HOLD for 2 hrs & Notify Provider. Then decrease by 200 units/hr (-
2 mL/hr)
Lab follow-up:: Each change, PTT q6h until 2 consecutive are therapeutic. Then PTT
daily.
Pharmacy Request to Place See Dose Instructions IV DIRECTED
08/16/24 11:30
Lactic Acid Q4H
Comment: CANCEL 2nd LACTIC ACID IF 1st LACTIC ACID IS LESS THAN 2
Abnormal Lab Results
08/16/24
07:16
WBC 11.4 H 10^3/uL
(4.8-10.8)
MPV 11.7 H fL
(7.4-10.4)
Absolute Neuts (auto) 8.7 H 10^3/uL
(1.4-6.5)
Absolute Monos (auto) 1.0 H 10^3/uL
(0.1-0.6)
Neutrophils % 76.7 H %
(42.2-75.2)
Lymphocytes % 12.2 L %
(20.5-51.1)
BUN 29 H mg/dl
(9-20)
Creatinine 1.5 H mg/dL
(0.7-1.3)
Glucose 221 H mg/dl
(70-99)
Total Bilirubin 1.4 H mg/dl
(0.2-1.3)
Troponin I 0.478 H* ng/ml
08/16/24 07:16
08/16/24 07:16
Vital Signs
Initial and Last Documented VS:
Initial Vital Signs
Temp Pulse Resp BP Pulse Ox
97.8 F 62 20 130/80 96
08/16/24 06:51 08/16/24 06:51 08/16/24 06:51 08/16/24 06:51 08/16/24 06:51
Last Documented Vital Signs
Temp Pulse Resp BP Pulse Ox
97.8 F 50 21 116/63 92
08/16/24 06:51 08/16/24 08:30 08/16/24 08:30 08/16/24 08:30 08/16/24 07:35
*Radiology
Radiology exam reviewed: radiology read reviewed (CT chest abdomen pelvis shows pancreatic head mass otherwise no acute findings)
*Pulse Oximetry
Patient hypoxic: no (92%)
*Critical Care Note
Total Time (30-74mins, 75-104mins- exclusive of procedures): 35
comment:
Critical care statement: A total of 35 minutes of critical care time was provided for this patient. This includes management of unstable vital signs, evaluation of the patient at bedside, reviewing the patient's pertinent medical records, discussion
with consultants, review of old EKGs and review of pertinent medical records. This time with separate from time utilized to perform the aforementioned documented procedures
Data Reviewed
Review of Other/Old Records Reveals: Testing (Cardiac catheterization 2022 showed mid LAD lesion 40 to 50% and Prinzmetal angina)
Source: records
ED Attending Note
-
Portions of this chart may have been created with voice recognition software.� Occasional wrong word or��sound alike� substitutions may have occurred due to the inherent limitations of voice recognition software.
Discharge Plan
Departure
Patient Disposition: Admit
Date of Disposition: 08/16/24
Time of Disposition: 08:13
Admit to: IVU
Presentation/result/management discussed w/ accepting MD/DO: Hospitalist
Patient with high blood pressure during this ER visit?: No
Condition: Fair
Discharge Problem:
Elevated troponin, Chest pain, Mass of head of pancreas
Prescriptions:
No Action
acetaminophen [Acetaminophen Extra Strength] 500 mg tablet
1,000 mg PO HSPRN PRN (Reason: mild pain)
dextroamphetamine-amphetamine 15 MG tablet
15 mg PO TID
Patient Comments:
patient only filling this at bid not tid last filled 03/27/24 #180
isosorbide mononitrate 60 mg Tablet Extended Release 24 Hr
60 mg PO DAILY Qty: 30 0RF
losartan 100 mg Tablet
100 mg PO DAILY
diphenhydramine HCl [Benadryl] 25 mg Capsule
25 mg PO HS
aspirin 81 mg Tablet,Delayed Release (Dr/Ec)
81 mg PO DAILY
montelukast 10 mg Tablet
10 mg PO DAILY
albuterol sulfate 90 mcg/actuation Hfa Aerosol Inhaler
2 puff INHALATION R Q6HPRN PRN (Reason: shortness of breath)
diltiazem HCl 240 mg Capsule,Extended Release 24hr
240 mg PO DAILY
mometasone 50 mcg/actuation [place],Non-Aerosol
2 spray INTRANASAL BIDPRN PRN (Reason: allergies)
budesonide-formoterol [Symbicort] 160-4.5 mcg/actuation Hfa Aerosol Inhaler
2 inh INHALATION R BID
furosemide 40 mg Tablet
40 mg PO BID AT 0800,1600 Qty: 60 0RF
hydrocortisone 1 % Cream
1 applic topical BID Qty: 28.35 0RF
rosuvastatin 10 mg Tablet
10 mg PO QPM Qty: 0 0RF
guaifenesin 600 mg Tablet Extended Release 12hr
600 mg PO Q12 Qty: 20 0RF
prednisone 10 mg tablet
10 mg PO DAILY Qty: 20 0RF
Rx Instructions:
4 tabs daily x2 days, 3 tabs daily x2 days, 2 tabs daily x2 days, 1 tab daily x2 days.
diltiazem HCl 360 mg capsule,extended release 24hr
360 mg PO DAILY Qty: 30 0RF
Referrals:
Nando Agustin DO [Family Provider, Family Practice]
Interventions
Interventions:
*Risk Screen - Suicide Last Done: 08/16/24 06:51
*General Assessment Last Done: 08/16/24 06:51
*Neglect/Abuse Screening Last Done: 08/16/24 06:51
ED- Cardiac Assessment Last Done: 08/16/24 07:00
Discharge Date and Time
Print Language: [place]
[2024-08-16] MEDS: ZOFRAN 4 MG IV (07:30)
[2024-08-16] MEDS: NSS 1000 IV ×3 (07:31→11:00)
[2024-08-16 07:44] LABS: ALT (SGPT) 30 U/L (0-50); AST (SGOT) 37 U/L (17-59); Alkaline Phosphatase 70 U/L (38-126); Blood Urea Nitrogen 29 mg/dl (9-20); Calcium 9.6 mg/dl (8.4-10.2); Carbon Dioxide 26 mmol/L (22-30); Chloride 102 mmol/L (98-107); Glucose 221 mg/dl (70-99); Potassium 3.6 mmol/L (3.5-5.1); Sodium 138 mmol/L (135-145); Total Bilirubin 1.4 mg/dl (0.2-1.3); Total Protein 6.9 g/dl (6.3-8.2); eGFR 49.47
[2024-08-16 07:59] LABS: Troponin I 0.478 ng/ml
[2024-08-16 08:35] LABS: Lipase 142 U/L (23-300)
--- NOTE | 2024-08-16 08:49 | CON.CAR ---
Consultation
Consultation Request
Date/Time Consultation Requested: 08/16/24 @ 8:15 AM
Date/Time Consultation Performed: 08/16/24 @ 8:35 AM
Requesting Provider: Nando Chen MD
Performing Provider: Jayden Kelly MD
Reason for Consultation: chest pain
Medical History
-
Chief Complaint: chest pain
History of Present Illness:
Mr. 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
abuse, homelessness and noncompliance, who is here with chest pain. He reports he has been having chest pain for the past 1 week. It is worse with exertion and he could only walk less than 10 yards before he had to stop due to fatigue and pain.
Today it got so bad that he decided to present to the ER. He also has lower abdominal pain and has been constipated for the past 1 week.
In the ER, he was hypotensive and started on norepinephrine. At time of my exam, he is on 2 of norepinephrine. He is chest pain-free at rest.
Past Medical History
Past Medical History: Asthma, CHF, COPD, HTN, Hypercholesterolemia, Renal Failure (CKD), Valvular Disease (aortic stenosis) and Other (Coronary vasospasm)
Past Surgical History: Orthopedic, Urological and Other (Splenectomy)
Social History
Tobacco: Non-Smoker
Alcohol: None
Drug: Former User (Prior fentanyl OD)
Personal: Single
Living: Homeless
Employment: Not Employed
Family History
Family History: Reviewed & Not Pertinent
Allergies / Home Medications
Allergy/AdvReac Type Severity Reaction Status Date / Time
lisinopril Allergy Unknown Unknown Verified 08/16/24 07:05
modafinil Allergy Unknown Unknown Verified 08/16/24 07:05
Iodinated Contrast Media Allergy IV Verified 08/16/24 07:05
DYE-HIVES
�Medication �Instructions �Recorded �Confirmed �Type
acetaminophen 500 mg tablet 1,000 mg PO HSPRN PRN mild pain 04/10/23 05/30/24 History
(Acetaminophen Extra Strength)
dextroamphetamine-amphetamine 15 15 mg PO TID ADHD 04/10/23 05/30/24 History
mg tablet
isosorbide mononitrate 60 mg 60 mg PO DAILY #30 tabs 04/12/23 05/30/24 Rx
tablet,extended release 24 hr
losartan 100 mg tablet 100 mg PO DAILY Blood Pressure 06/02/23 05/30/24 History
diphenhydramine HCl 25 mg capsule 25 mg PO HS Sleep 03/13/24 05/30/24 History
(Benadryl)
albuterol sulfate 90 mcg/actuation 2 puff inhalation R Q6HPRN PRN 05/30/24 05/30/24 History
aerosol inhaler shortness of breath
aspirin 81 mg tablet,delayed 81 mg PO DAILY 05/30/24 05/30/24 History
release
budesonide-formoterol HFA 160 2 inh inhalation R BID 05/30/24 05/30/24 History
mcg-4.5 mcg/actuation aerosol
inhaler (Symbicort)
diltiazem HCl 240 mg 240 mg PO DAILY 05/30/24 05/30/24 History
capsule,extended release 24 hr
mometasone 50 mcg/actuation nasal 2 spray intranasal BIDPRN PRN 05/30/24 05/30/24 History
spray allergies
montelukast 10 mg tablet 10 mg PO DAILY 05/30/24 05/30/24 History
diltiazem HCl 360 mg 360 mg PO DAILY #30 caps 06/01/24 Rx
capsule,extended release 24 hr
furosemide 40 mg tablet 40 mg PO BID AT 0800,1600 #60 tabs 06/01/24 Rx
guaifenesin 600 mg tablet, 600 mg PO Q12 #20 tabs 03/31/25 Rx
extended release 12 hr
hydrocortisone 1 % topical cream 1 applic topical BID #28.35 grams 06/01/24 Rx
prednisone 10 mg tablet 10 mg PO DAILY #20 tabs 06/01/24 Rx
rosuvastatin 10 mg tablet 10 mg PO QPM #0 tabs 06/01/24 Rx
Review of Systems
-
All other systems: Negative unless noted
Physical Exam
Vital Signs
Temp Pulse Resp BP Pulse Ox
97.8 F 50 21 116/63 92
08/16/24 06:51 08/16/24 08:30 08/16/24 08:30 08/16/24 08:30 08/16/24 07:35
Lab Results
08/16/24 07:16
08/16/24 07:16
Troponin I 0.478 ng/ml H* 08/16/24 07:16
Physical Exam
General: Well Developed, Well Nourished and Other (looks uncomfortable )
Respiratory: Clear and Non Labored Respirations
Cardiac: S1/S2 and Murmur; Negative Peripheral Edema
Neuro: AO x 3
Impression / Plan
-
Mr. 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
abuse, homelessness and noncompliance, who is here with chest pain and elevated troponin, concerning for NSTEMI and cardiogenic shock.
NSTEMI with cardiogenic shock
- Diagnosis is a threat to life. He is on heparin which requires intensive monitoring as well as vasopressors.
- Presented with chest pain. Troponin 0.478. ECG with lateral ST depressions.
- Start IV heparin. He is s/p ASA 325 mg.
- He is chest pain-free at this time.
- Catheterization lab is being emergently activated. Dr. Branch aware.
- Continue vasopressors to maintain MAP >65
Coronary artery disease
-LHC 12/26/2022: 40-50% mid LAD lesion (IFR 0.91), coronary spasm
-LDL 70 in March. Increase rosuvastatin to 20 mg daily.
-LHC as above
Paroxysmal atrial fibrillation
-Declined AC per last outpatient visit note
-Resume diltiazem once he is hemodynamically stable
HFpEF
-Appears euvolemic
-Hold Lasix for now
Moderate aortic stenosis
-TTE 03/13/2024: LVEF 55-60%, moderate AAS (42/27 mmHg)
CCT: 40 minutes
Data Reviewed
-
EKG: Tracing Personally Visualized and interpreted, Discussed with Physician and Discussed with Patient
CT Scan: Report Reviewed by me
Medical Tests (Nuc Med, Echo etc): Report Reviewed by me
Labs: Labs Reviewed by me, Discussed with Physician and Discussed with Patient
Old Records: Reviewed
Critical Care Time (in minutes): 40
[2024-08-16] MEDS: HEPARIN 4000 UNITS IV (09:07)
--- NOTE | 2024-08-16 09:11 | HPS.HSE ---
Family Physician
-
Family Physician: Nando Agustin
Chief Complaint
-
Chest pain
History of Present Illness
69-year-old male with HFpEF, CAD s/p NSTEMI, BEA/restrictive lung disease, hypertension, hyperlipidemia, Klinefelter syndrome, obesity, medication noncompliance, polysubstance abuse, alcohol abuse, s/p bilateral knee replacements, s/p splenectomy,
s/p left adrenal gland removal presenting to the hospital with a complaint of chest pain. States that over the last week he has had chest discomfort with exertion, to minimal degree of exertion needed for symptoms. Yesterday evening into today he
developed symptoms at rest that did not initially improve, and began radiating into LUE, which prompted him to come in for evaluation. States that he has been losing significant weight recently. Upon arrival to the ED was hypotensive at 62/36
mmHg, bradycardic with heart rate near 50/min, tachypneic, though respiratory status stable on room air. Initial labs with WBC 11.4, creatinine 1.5, BUN 29, glucose 221, T. bili 1.4, troponin 0.478. Initial ECG with sinus bradycardia, ST
depressions in the lateral leads that worsened on a serial ECG. CTA C/A/P showed elevation of the right hemidiaphragm with chronic compressive segmental atelectasis, signs of moderate lower lobe bronchitis, chronic granulomatous infection, 4 cm
pancreatic head mass suspicious for pancreatic adenocarcinoma, small low-attenuation hepatic lesions suspicious for metastases, congenital hypoplasia of liver lobes, severe calcified atherosclerotic plaques throughout the intra-abdominal
vasculature. Blood culturesx2 obtained in ED. Received 324 mg aspirin. Was given 1 L IV fluids and started on Zofran in the ED.
Medical History
Past Medical History
Past Medical History: Reports Other
Additional Past Medical History:
HFpEF
CAD s/p NSTEMI
Obstructive sleep apnea
Restrictive lung disease
Hypertension
Dyslipidemia
Klinefelter syndrome
Obesity
History of substance abuse
Medication noncompliance
Past Surgical History: Reports Other
Additional Past Surgical History:
Bilateral knee replaced
Splenectomy
Left adrenalectomy
Social History
Tobacco: Non-smoker
Alcohol: Former
Drug: Former User
Family History
Family History: Not pertinent
Allergies / Home Medications
Allergies reflects when Allergies were last updated in [employer].
Home Medications with original date entered in [employer]
Allergy/Medication List:
Allergies
Allergy/AdvReac Type Severity Reaction Status Date / Time
lisinopril Allergy Unknown Unknown Verified 08/16/24 07:05
modafinil Allergy Unknown Unknown Verified 08/16/24 07:05
Home Medications
acetaminophen 500 mg tablet (Acetaminophen Extra Strength) 1,000 mg PO HSPRN PRN mild pain 04/10/23
dextroamphetamine-amphetamine 15 mg tablet 15 mg PO TID ADHD 04/10/23
isosorbide mononitrate 60 mg tablet,extended release 24 hr 60 mg PO DAILY #30 tabs 04/12/23
losartan 100 mg tablet 100 mg PO DAILY Blood Pressure 06/02/23
diphenhydramine HCl 25 mg capsule (Benadryl) 25 mg PO HS Sleep 03/13/24
albuterol sulfate 90 mcg/actuation aerosol inhaler 2 puff inhalation R Q6HPRN PRN shortness of breath 05/30/24
aspirin 81 mg tablet,delayed release 81 mg PO DAILY 05/30/24
budesonide-formoterol HFA 160 mcg-4.5 mcg/actuation aerosol inhaler (Symbicort) 2 inh inhalation R BID 05/30/24
diltiazem HCl 240 mg capsule,extended release 24 hr 240 mg PO DAILY 05/30/24
mometasone 50 mcg/actuation nasal spray 2 spray intranasal BIDPRN PRN allergies 05/30/24
montelukast 10 mg tablet 10 mg PO DAILY 05/30/24
diltiazem HCl 360 mg capsule,extended release 24 hr 360 mg PO DAILY #30 caps 06/01/24
furosemide 40 mg tablet 40 mg PO BID AT 0800,1600 #60 tabs 06/01/24
guaifenesin 600 mg tablet, extended release 12 hr 600 mg PO Q12 #20 tabs 06/01/24
hydrocortisone 1 % topical cream 1 applic topical BID #28.35 grams 06/01/24
prednisone 10 mg tablet 10 mg PO DAILY #20 tabs 06/01/24
rosuvastatin 10 mg tablet 10 mg PO QPM #0 tabs 06/01/24
Review of Systems
-
A 12 point ROS was completed and negative except as noted: Yes
Constitutional: Reports See HPI
EENT: Reports No Symptoms
Respiratory: Reports See HPI
Cardiac: Reports See HPI
Abdomen/GI: Reports See HPI
: Reports No Symptoms
Musculoskeletal: Reports No Symptoms
Skin: Reports No Symptoms
Neurological: Reports No Symptoms
Endocrine: Reports No Symptoms
Hematologic/Lymphatic: Reports No Symptoms
Psych: Reports No Symptoms
Physical Exam
Vital Signs
Vital Signs
Temp Pulse Resp BP Pulse Ox
97.8 F 50 21 116/63 92
08/16/24 06:51 08/16/24 08:30 08/16/24 08:30 08/16/24 08:30 08/16/24 07:35
Physical Exam
General: Well Developed, No Apparent Distress and Obese
HEENT: NormoCephalic, Anicteric, Moist mucous membranes, Atraumatic and PERRLA
Respiratory: Clear and Non Labored Respirations; No Accessory Resp Muscle Use
Cardiac: S1/S2, Regular Rhythm and Bradycardia; No Murmur, Rub, Gallop, Peripheral Edema or JVD
GI: Soft, Non Tender, Non Distended and Normal Bowel Sounds
Musculoskeletal: No Clubbing and No Cyanosis
Skin: Warm and Dry; No Rash
Neuro: AO x 3, Nonfocal/grossly intact and Cranial Nerves Intact
Psych: Calm
Laboratory Results
-
08/16/24 07:16
08/16/24 07:16
Laboratory Results
Total Bilirubin 1.4 mg/dl (0.2-1.3) H 08/16/24 07:16
AST 37 U/L (17-59) 08/16/24 07:16
ALT 30 U/L (0-50) 08/16/24 07:16
Alkaline Phosphatase 70 U/L (38-126) 08/16/24 07:16
Troponin I 0.478 ng/ml H* 08/16/24 07:16
Lipase Cancelled 08/16/24 07:32
Data Reviewed
-
Lab Data: Labs Reviewed by me, Discussed with Physician (ICU, Interventional Cards) and Discussed with Patient
Impression/Plan
-
#NSTEMI
#Circulatory shock
#Sinus bradycardia
-High concerns with ACS, typical chest pain with elevated troponin (0.478) and lateral ST depression
-Also significantly hypotensive with SBP in the 60s, improved to 80s with 1 L IV fluids
-Has high risk with previous NSTEMI, hypertension and dyslipidemia history
-Was given full dose aspirin in the ED, seen by cardiology who recommended LHC
-Currently without chest discomfort in the ED while at rest
-Misty score 146, 18% risk of 6-month mortality
Plan
-LHC with coronary angiography and likely PCI
-Trend troponin with serial ECG pending cath
-Continue IV fluids and start Levophed for MAP goal >65
-Start IV heparin drip and continue aspirin 81 and statin
-Hold diltiazem and antihypertensives
-Monitor on telemetry
-Order TTE, A1c, lipid panel
-Consider SGLT2i when hemodynamics improve
#Pancreatic head mass
#Likely liver metastases
-Suspicious for pancreatic adenocarcinoma, 4 cm mass seen on CT in the ED with signs of liver mets
-States he has been losing a lot of weight unintentionally recently, abdomen symptoms with large meals
-On exam he also has varicosities of the lower extremities, question Trousseau syndrome
-Will consult oncology and ultimately plan for biopsy, possibly of liver metastases
-Order ultrasound of the lower extremities to assess for DVTs
-If DVT present will need long-term AC
#Chronic HFpEF
#CAD s/p NSTEMI
-CHF likely related to ischemic heart disease
-Home regimen includes aspirin, Lasix, losartan, Crestor, diltiazem
-Not currently on any GDMT for HFpEF
-Consider SGLT2i as above
-Monitor I's/O's and weights
#BEA
#Restrictive lung disease
-Unclear etiology for ILD, no known ILD history
-Home meds include albuterol sulfate as needed
-Currently stable on RA, monitor respiratory status
Diet: N.p.o. pending [facility]
DVT prophylaxis: Heparin drip
CODE STATUS: Full code
Disposition: Admit to ICU
[2024-08-16 09:12] LABS: Lactic Acid 2.2 mmol/L (0.7-2.0)
[2024-08-16 09:50] LABS: APTT 179.4 Sec (23.4-35.0)
--- NOTE | 2024-08-16 10:18 | ITS.CL.CATH ---
Office Assistant Receptionist - Catheterization
Cardiac Catheterization
Procedure Report:
CARDIAC CATHETERIZATION REPORT
Date of Procedure: 08/16/2024
Referring: Jayden Kelly M.D.
INDICATION: Non-ST elevation myocardial infarction.
PROCEDURE:
1. Left heart catheterization.
2. Coronary angiography
3. Left ventriculography.
A total of 22 minutes of procedural/moderate sedation was utilized. An independent medical officer psychiatry was present to assist with and help manage the patient's level of consciousness and physiologic status.
ACCESS:
1. 6 Canadian right common femoral artery using a modified Seldinger technique with a micropuncture kit under ultrasound guidance.
CATHETERS:
1. 5 Canadian JR4.
2. 5 Canadian JL 4.
3. 6 Canadian angled pigtail.
HEMODYNAMIC DATA
Weight (kg): 112.9
AO (s/d/x, mmHg): 102/53/69
LV (s/x mmHg): 124/15
AV Gradient (x, mmHg): 21.67
LEFT VENTRICULOGRAPHY: Performed in an CARTER projection. Normal right ventricular size with hyperdynamic systolic function. Left ventricular ejection fraction estimated at 75+ percent. There were no regional wall motion abnormalities. There is no
mitral valve regurgitation. There is no aortic valve insufficiency. The aortic root and visualized ascending and descending aorta appear normal.
CORONARY ANGIOGRAPHY
Dominance: Right.
Left Main: Normal size, trifurcating vessel. There is no coronary artery disease.
LAD: Normal size vessel giving rise to 2 diagonals. There is no obvious coronary artery disease, though the vessels appear somewhat restricted. There are some luminal irregularities.
Ramus: Normal size vessel supplying the majority of the anterolateral wall. There is no coronary artery disease.
Circumflex: Normal size, nondominant vessel giving rise to 1 obtuse marginal which subsequently bifurcates into 2 smaller daughter vessels. There is no coronary artery disease.
RCA: Normal size, dominant vessel. There is a possible 50% lesion in the ostium of the right posterolateral branch.
INTERVENTION(S)
1. Intracoronary nitroglycerin with repeat angiography demonstrating significant improvement in vessel diameter.
Narrative:
Initial angiography demonstrated no obvious atherosclerotic disease responsible for the patient's anginal symptoms. Comparison was made to the patient's previous angiography from 2022. While there was no anatomic difference, the vessels appeared
smaller and more restricted than in 2022. The 2022 cath also demonstrated evidence of coronary arterial spasm with the introduction of an IFR wire for a mid LAD lesion. At this point, we were suspicious for diffuse coronary arterial spasm.
Nitroglycerin 150 mcg was given through the catheter and angiography was repeated. This demonstrated an immediate improvement in the overall vessel diameter throughout the entire left coronary tree. Satisfied that we had identified the culprit for
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
Closure Device: 6 Canadian Angio-Seal.
Radiation (mGy): 756.72
DAP (cm2.Gy): 62.2914
Fluoroscopy time (minutes): 3.4
CONCLUSIONS
1. Right dominant circulation with a possible 50% lesion in the ostium of the right posterolateral branch and evidence of diffuse coronary artery vessel spasm improved with intracoronary nitroglycerin.
2. Mildly elevated filling pressures (LVEDP = 15 mmHg at 112.9 kg).
3. Mild to moderate aortic valve stenosis (mean gradient 21.67 mmHg).
RECOMMENDATIONS:
1. Expectant management after cardiac catheterization via right common femoral approach.
2. Limited weight bearing for one week.
3. Continue calcium channel blockers. We will add long-acting nitrates (isosorbide mononitrate 30 mg daily).
4. Sublingual nitroglycerin as needed.
5. Continue OMT/GDMT as hemodynamically tolerated.
6. Continue aggressive primary prevention with high-dose, high potency statin.
7. Echocardiogram ordered and pending.
Copy to: Eleazar Briggs M.D., Ph.D., Jayden Kelly M.D., Nando Agustin D.O.
Godwin Branch DO, FACC, FACP
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
[2024-08-16] MEDS: MIRALAX 17 GRAMS PO (12:17)
[2024-08-16 14:54] LABS: Lactic Acid 2.4 mmol/L (0.7-2.0)
--- NOTE | 2024-08-16 16:00 | PTCARENOTE ---
Pt received post cath at 1105. Denies any chest pain, sob or abd pain. Room air sat 98%. Right groin dressing dry and intact, site WNL. Assisted oob to the chair and to the BR after bedrest completed.
[2024-08-16 16:09] LABS: NT-proBNP 251 pg/ml
[2024-08-16] MEDS: CRESTOR 10 MG PO (17:27)
[2024-08-16] MEDS: SYMBICORT 160/4.5 MCG INHALER 2 PUFF INH (17:43)
[2024-08-16] MEDS: MUCINEX 600 MG PO (19:35)
[2024-08-16] MEDS: PERCOCET 5/325 1 TABLET PO (19:35)
[2024-08-16] MEDS: HYDROCORTISONE 1% CREAM TOPICAL (19:38)
[2024-08-16] MEDS: BENADRYL 25 MG PO (22:15)
[2024-08-17] VITALS (7 sets, daily range): BP systolic 78–133; BP diastolic 47–71; BMI 33.9
[2024-08-17] MEDS: SENOKOT-S 1 TABLET PO (00:33)
[2024-08-17] MEDS: PERCOCET 5/325 1 TABLET PO (00:33)
--- NOTE | 2024-08-17 00:52 | PTCARENOTE ---
Pt. has had no complaints of chest pain so far this shift, VSS, NSR-SB on the monitor. Right groin cath site CDI with bleeding or hematoma assessed, pedal pulse palpable. Repeat lactic acid resulted 3 - reported to SANDHYA Rizvi, who said ok to
stop trending at this time. Complains of intermittent lower abdominal pain for which Percocet is effective. Pt. currently sleeping.
[2024-08-17] MEDS: BENADRYL 25 MG PO ×2 (02:30→22:30)
--- NOTE | 2024-08-17 02:32 | PTCARENOTE ---
Addendum entered by Dixie Johnson RN 08/17/24 04:50:
Senna-S added as allergy as well because this medication was new for patient and given at same time as Percocet; unclear which he reacted to. Medication discontinued by Amber.
Original Note:
Pt. complaining of itching on head and abdomen post Percocet admin. No rash visualized. No other symptoms present. SANDHYA Rizvi, notified, Percocet dc'd and order for Benadryl 25 mg PO obtained and administered. Allergy list updated. Pt. has
no other complaints at this time.
[2024-08-17 03:46] LABS: Hemoglobin 13.3 g/dL (13.0-18.0); Mean Corp Hgb Conc. 34.1 g/dL (33.0-37.0); Mean Corpuscular Volume 90.9 fL (80.0-94.0); Mean Platelet Volume 11.1 fL (7.4-10.4); Platelet Count 132 10^3/uL (130-400); Red Blood Cell Count 4.29 10^6/uL (4.70-6.10); Red Cell Dist. Width 13.1 % (11.5-14.5); White Blood Cell Count 9.2 10^3/uL (4.8-10.8)
[2024-08-17 04:03] LABS: Blood Urea Nitrogen 28 mg/dl (9-20); Calcium 8.7 mg/dl (8.4-10.2); Carbon Dioxide 29 mmol/L (22-30); Chloride 100 mmol/L (98-107); Estimated Creatinine Clearance 65 ml/min; Glucose 176 mg/dl (70-99); HDL Cholesterol 28 mg/dl; LDL Cholesterol, Calculated 58 mg/dl; Potassium 3.7 mmol/L (3.5-5.1); Sodium 135 mmol/L (135-145); Total Cholesterol 100 mg/dl (50-199); Triglyceride 74 mg/dl (10-149); Very Low Density Lipoprotein 14 mg/dl (0-30); eGFR 53.74
--- NOTE | 2024-08-17 07:18 | W.PN.HOSP.TC ---
Addendum entered and electronically signed by Marielle Boothe MD 08/17/24 15:20:
I saw and evaluated the patient independently. I reviewed the resident�s note and agree with findings and plan as documented by Dr. Romano.
GENERAL: well developed, well nourished, male in no apparent distress
HEENT: NC/AT--no O2 requirements
HEART: regular rate and rhythm, +S1, +S2, SAMREEN
LUNGS : clear to auscultation bilaterally
ABDOM: soft, diffusely tender without guarding or rebound, nondistended, + bowel sounds
EXT: no cyanosis, clubbing, or edema
NEUROLOGIC: grossly intact
NSTEMI--presented with chest pain and elevated troponin--apprec cards--s/p cardiac cath which showed coronary artery vasospasm with improvement with intra-artery nitroglycerin--agree with diltiazem, Imdur, asa, statin
-Echocardiogram 08/17- Normal biventricular size and systolic function without regional wall motion abnormality. Moderate concentric left ventricular hypertrophy. Diastolic function indeterminate. Moderate aortic stenosis, mean gradient 26 mmHg. MURIEL
1.7 cmsq. No significant change since the prior study of 03/13/2024 when the mean gradient across the AoV was 27 mmH and the estimated AoV area was 1.4 cmsq.
Pancreatic head mass--suspicion for pancreatic cancer with Suspicion for liver metastases--States he has been losing a lot of weight unintentionally recently, abdomen symptoms with large meals--apprec onc--pt is homeless which will impact follow
up--apprec onc--MRI abdomen pending--may need liver biopsy of nodules--CEA and CEA 19-9 pending
Paroxysmal atrial fibrillation--Currently normal sinus rhythm--Rate controlled with diltiazem--Per cardiology note, declined AC
Chronic HFpEF with CAD s/p NSTEMI--cont aspirin, Lasix, losartan, Crestor, diltiazem--Not currently on any GDMT for HFpEF--Consider SGLT2i as above
BEA with Restrictive lung disease--Unclear etiology for ILD, no known ILD history--since pt homeless doubt he is using CPAP--cont MDIs
DVT proph-- SCDs
CODE STATUS-- Full code
Original Note:
Today's Communication/Plan
-
;/
Assessment / Plan
Assessment / Plan
Assessment/plan
#NSTEMI
# S/p [facility] with cardiac catheterization-coronary arteriospasm
-Presented with typical chest pain with elevated troponin (0.478) and lateral ST depression
-Cardiac catheterization showed stable, non-occlusive luminal irregularities
-Decrease home Diltiazem to 240mg, Start on Isosorbide mononitrate
-Continue home aspirin, statin
-No indication for heparin
-Cardiology following
-Echocardiogram 08/17- Normal biventricular size and systolic function without regional wall motion abnormality. Moderate concentric left ventricular hypertrophy. Diastolic function indeterminate. Moderate aortic stenosis, mean gradient 26 mmHg. MURIEL
1.7 cmsq. No significant change since the prior study of 03/13/2024 when the mean gradient across the AoV was 27 mmH and the estimated AoV area was 1.4 cmsq.
#Pancreatic head mass
#Suspicion for liver metastases
-Suspicious for pancreatic adenocarcinoma, 4 cm mass seen on CT in the ED with signs of liver mets
-States he has been losing a lot of weight unintentionally recently, abdomen symptoms with large meals
-Oncology consult, input appreciated
-MRI abdomen with and without contrast
-IR consulted to biopsy liver lesion
-GI consulted
-CEA and CEA 19-9 pending
#Paroxysmal atrial fibrillation
-Currently normal sinus rhythm
-Rate controlled with diltiazem
-Per cardiology note, declined AC
#Chronic HFpEF
#CAD s/p NSTEMI
-Stable, euvolemic on exam
-Home regimen includes aspirin, Lasix, losartan, Crestor, diltiazem
-Not currently on any GDMT for HFpEF
-Consider SGLT2i as above
-Monitor I's/O's and weights
-Echocardiogram as above
#BEA
#Restrictive lung disease
-Unclear etiology for ILD, no known ILD history
-Home meds include albuterol sulfate as needed
-Currently stable on RA, monitor respiratory status
DVT prophylaxis; SCDs
CODE STATUS: Full code
Anticipated Discharge: > 48 hours
Subjective/Interval History
-
Patient seen and examined at bedside. Complain of abdominal tenderness. Denies chest pain, shortness of breath
Objective Data
-
Labs:
Laboratory Results
08/17/24
03:24
WBC 9.2
Hgb 13.3 D
Hct 39.0
Plt Count 132
Sodium 135
Potassium 3.7
Chloride 100
Carbon Dioxide 29
BUN 28 H
Creatinine 1.4 H
Glucose 176 H
Calcium 8.7
Vital Signs:
Vital Signs
Temp Pulse Resp BP Pulse Ox
97.7 F 60 20 111/47 94
08/17/24 06:51 08/17/24 02:07 08/17/24 06:51 08/17/24 02:07 08/17/24 06:51
I&O
08/16/24 08/17/24 08/18/24
06:59 06:59 06:59
Intake Total 720 / 720
Output Total 900 / 900
Balance -180 / -180
Review of Systems
-
All other systems: Reviewed and negative (Except as documented)
Physical Exam
-
General: No Apparent Distress and Comfortable
Respiratory: Clear to Auscultation; Negative Wheezes, Rales or Rhonchi
Cardiac: Regular Rhythm, S1/S2 and Murmur
GI: Soft, Nondistended, Normal Bowel Sounds and Tender (Generalized abdominal tenderness in mid abdomen region)
Musculoskeletal: No Clubbing
Neuro: Awake, Alert, Oriented and AO x 3
Psych: Calm
--- NOTE | 2024-08-17 07:23 | W.PN.CD ---
Today's Communication / Plan
-
Isosorbide mononitrate.
Decrease diltiazem to 240 mg daily.
GI consult for pancreatic head mass (possible EGD with EUS/biopsy).
IR consult for possible liver lesion biopsy.
Impression / Plan
-
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
EtOH/drug abuse, homelessness and noncompliance, who is here with chest pain and elevated troponin, found to have coronary arteriospasm on cardiac catheterization. CTA reveals pancreatic head mass with liver lesions concerning for malignancy.
#NSTEMI with coronary arteriospasm
-Acute on chronic.
-Presented with chest pain. Troponin 0.478. ECG with lateral ST depressions.
-Cardiac catheterization showed stable, non-occlusive luminal irregularities. Compared to prior catheterization, the arteries appeared smaller. IC nitroglycerin resulted in dilation of the arteries, confirming that symptoms are likely from
coronary arteriospasm.
-No role for heparin.
-Maintain aspirin.
-Decrease diltiazem to 240 mg daily and start isosorbide mononitrate 30 mg.
-Maintain statin.
#Paroxysmal atrial fibrillation
-Currently in NSR.
-Rate control with diltiazem.
-CHADS2-Vasc = 4 (CHF, HTN, Age x1, vascular disease).
-Declined AC per last outpatient visit note.
#HFpEF
-Chronic, stable.
-Clinically euvolemic (mildly elevated LVEDP =15 mmHg).
-Daily weights.
#Moderate aortic stenosis
-Chronic, stable.
-TTE 03/13/2024: LVEF 55-60%, moderate AAS (42/27 mmHg).
-Gradient on pull back = 21.67 mmHg.
#Pancreatic head mass
-New diagnosis.
-Highly concerning for metastatic pancreatic adenocarcinoma.
-GI consult for possible EGD/EUS + biopsy.
-IR consult for liver lesion biopsy. Hepatic flexure obscuring liver on CT - this will likely limit approach.
Subjective/Interval History:
Weight up 3.6 kg per scale - I suspect a discrepancy between ER and IVU scales.
CTA shows 4.0 cm pancreatic head mass with liver lesions concerning for metastatic disease.
DATA:
Cardiac Catheterization, 08/16/2024:
CONCLUSIONS
1. Right dominant circulation with a possible 50% lesion in the ostium of the right posterolateral branch and evidence of diffuse coronary artery vessel spasm improved with intracoronary nitroglycerin.
2. Mildly elevated filling pressures (LVEDP = 15 mmHg at 112.9 kg).
3. Mild to moderate aortic valve stenosis (mean gradient 21.67 mmHg).
CT Chest/Abd/Pelvis, 08/16/2024:
CHEST CTA:
1. Mild cardiomegaly.
2. Mild to moderate calcification in the aortic valve.
3. Moderate elevation of the right hemidiaphragm with chronic compressive subsegmental atelectasis in the right lower and middle lobes.
4. Moderate left lower lobe bronchitis.
5. Chronic granulomatous disease infection.
6. Moderate multilevel discogenic degenerative disease in the thoracic spine.
ABDOMEN and PELVIS CTA:
1. 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 Acute focal pancreatitis is considered less likely.
2. Mild dary hepatis and peripancreatic lymphadenopathy (probably cesar metastatic disease).
3. New small low-attenuation hepatic lesions (probably hepatic metastases).
4. 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
5. Mild chronic bilateral renal disease.
6. Severe calcific atherosclerotic plaque in the abdominal aorta, iliac, and renal arteries.
7. Moderate amount of fecal material throughout the proximal colon.
8. Severe lower lumbar facet joint arthrosis.
LE Duplex, 08/16/2024:
IMPRESSION:
No evidence of deep venous thrombosis of the lower extremities bilaterally.
No interval change.
Physical Exam
Vital Signs/Labs
Vital Signs
Temp Pulse Resp BP Pulse Ox
36.5 C 60 20 111/47 94
08/17/24 06:51 08/17/24 02:07 08/17/24 06:51 08/17/24 02:07 08/17/24 06:51
08/15/24 08/16/24 08/17/24
11:59 11:59 11:59
Actual Weight 112.9 kg 116.5 kg
08/17/24 03:24
08/17/24 03:24
PT Cancelled 08/16/24 14:54
INR Cancelled 08/16/24 14:54
APTT Cancelled 08/16/24 14:54
Magnesium Cancelled 08/16/24 14:54
Triglycerides 74 mg/dl (10-149) 08/17/24 03:24
LDL Cholesterol, Calc 58 mg/dl 08/17/24 03:24
VLDL Cholesterol, Calc 14 mg/dl (0-30) 08/17/24 03:24
HDL Cholesterol 28 mg/dl 08/17/24 03:24
08/16/24
07:16
Hmr-S-Tayxzfessfe Pept 251
LAB Results
08/16/24 08/16/24 08/16/24
07:16 14:54 20:54
Troponin I 0.478 H* Cancelled Cancelled
Physical Exam
Constitutional: No acute distress and Comfortable
EENT: Anicteric and Moist mucous membranes
Cardiovascular: Rhythm & rate is regular, Pedal edema is absent, JVD pressure is normal, S1S2 is normal and Murmur/rub/gallop absent
Respiratory: Respiratory effort normal, Lungs clear to auscul., Wheeze Absent, Crackles Absent and Rhonchi Absent
GI: Soft, Distention absent, Flat, Non tender and Normal bowel sounds
Neuro/Psych: AO x 3
Other: Cath Site (Right femoral access site is C/D/I.)
Data Reviewed
-
Date of Service: August 17, 2024
Medical Decision Making: Reviewed Test Results, Independent Historian Assessment and Test Interpretation
EKG: Tracing Personally Visualized and interpreted and Report Reviewed by me
Echo: Report Reviewed by me
X-Ray/CT/US/MRI/NUC/PET: Image Personally Visualized and interpreted and Report Reviewed by me
Medical Tests (PFT, Pathology etc): Image Personally Visualized and interpreted and Report Reviewed by me
Labs: Labs Reviewed by me
Old Records: Reviewed
[2024-08-17] MEDS: SYMBICORT 160/4.5 MCG INHALER INH (08:30)
--- NOTE | 2024-08-17 09:07 | CON.ONC ---
Consultation
-
Date Consultation Requested: 08/16/24
Date Consultation Performed: 08/17/24
Requesting Provider: Godwin Geiger
Performing Provider: itzel Soto
Reason for Consultation: Pancreatic mass
Impression
Impression
Pancreatic head mass
Suspicion for liver metastasis
NSTEMI
Chronic heart failure preserved ejection fraction
A-fib
BEA/restrictive lung disease
Homelessness
Plan
Plan
#Pancreatic head mass
#Liver nodules
Patient reports he has been having abdominal pain worse with eating, and constipation for 'years' reports no jaundice, no bloody or changing stool color. Reports no unintentional weight loss
Reportedly multiple sisters in his family have had breast and ovarian cancer in the past, no personal history of cancer in patient
Could potentially be genetic component, patient will require [employer] sequencing as an outpatient to confirm. Can also consider doing liquid biopsy to evaluate for BRCA mutations. Will consider genetic counseling and test as an outpatient in
follow-up.
CT chest abdomen pelvis with contrast demonstrated new heterogeneous attenuating mass in the head of the pancreas largest dimension 4.0 cm. Also has mildly enlarged retroperitoneal lymphadenopathy
Multiple low-attenuation lesions in the left and right lobe of his liver. Which appear new compared to imaging from 2022
Patient will require pathology to confirm diagnosis, easiest biopsy spot is likely one of his liver metastasis
Await CEA and CA 1919, if elevated could aid in diagnosis
Ordered MRI abdomen with and without contrast to further classify pancreatic and liver lesions
Hold off on interventional radiology consult until imaging and labs have resulted
Ideally would like to obtain biopsy while inpatient, unsure if patient will be able to come off of anticoagulation secondary to recent ACS to undergo inpatient biopsy.
Of note patient reports he is homeless and will likely have many social issues regarding outpatient follow-up. Patient agreeable to inpatient biopsy if possible. Anticoagulation per cardiology.
Further discussions contingent upon biopsy results and staging imaging. Would be stage IV if liver positive for metastasis
#NSTEMI
#Chronic heart failure preserved ejection fraction
Status post left heart catheterization
Supportive measures and management per cardiology
Anticoagulation management per cardiology
Patient History
History of Present Illness
69-year-old homeless male past medical history heart failure preserved action fraction, CAD, status post NSTEMI, BEA/restrictive lung disease, hypertension, hyperlipidemia, Klinefelter syndrome, obesity, medication noncompliance, polysubstance
abuse, alcohol abuse status post splenectomy, status post left adrenal gland removal presented to the ED with complaint of chest pain. On arrival patient was hypotensive, bradycardic, tachypneic. Patient was found to have NSTEMI on EKG, admitted
and was taken for left heart catheterization. CTA chest abdomen pelvis demonstrated a 4 cm pancreatic head mass suspicious for pancreatic adenocarcinoma with multiple small low-attenuation hepatic lesions which appear new. Adjacent mildly enlarged
retroperitoneal lymphadenopathy medial to the pancreatic head. Medical oncology was consulted secondary to suspicious pancreatic mass. Of note patient reports he is currently homeless.
Past-Medical/Surgical History
See HPI
Patient Medication
�Medication �Instructions �Recorded �Confirmed �Last Taken �Type
acetaminophen 500 mg tablet 1,000 mg PO HSPRN PRN mild pain 04/10/23 08/16/24 03/13/24 History
(Acetaminophen Extra Strength)
isosorbide mononitrate 60 mg 60 mg PO DAILY #30 tabs 04/12/23 08/16/24 08/15/24 Rx
tablet,extended release 24 hr
losartan 100 mg tablet 100 mg PO DAILY Blood Pressure 06/02/23 08/16/24 08/15/24 History
diphenhydramine HCl 25 mg capsule 25 mg PO HS Sleep 03/13/24 08/16/24 08/15/24 History
(Benadryl)
albuterol sulfate 90 mcg/actuation 2 puff inhalation R Q6HPRN PRN 05/30/24 08/16/24 Unknown History
aerosol inhaler shortness of breath
aspirin 81 mg tablet,delayed 81 mg PO DAILY Blood Clot 05/30/24 08/16/24 08/16/24 History
release Prevention/Tx
diltiazem HCl 240 mg 240 mg PO DAILY Blood Pressure 05/30/24 08/16/24 07/11/24 History
capsule,extended release 24 hr
montelukast 10 mg tablet 10 mg PO DAILY Allergies 05/30/24 08/16/24 08/15/24 History
diltiazem HCl 360 mg 360 mg PO DAILY #30 caps 06/01/24 08/16/24 08/16/24 Rx
capsule,extended release 24 hr
furosemide 40 mg tablet 40 mg PO BID AT 0800,1600 #60 tabs 06/01/24 08/16/24 08/15/24 Rx
rosuvastatin 10 mg tablet 10 mg PO QPM #0 tabs 06/01/24 08/16/24 08/15/24 Rx
Active Medications
Generic Name Dose Route Start Last Admin
Trade Name Freq PRN Reason Stop Dose Admin
Acetaminophen 650 mg 08/16/24 10:16
Acetaminophen 325 Mg Tablet PO 09/13/24 10:15
Q4HPRN PRN
mild pain
Albuterol 2 puff 08/16/24 14:54
Albuterol Hfa [90 Mcg/Dose] Inhaler INH
R Q6HPRN PRN
shortness of breath
Protocol
Aspirin 81 mg 08/17/24 08:00
Aspirin 81 Mg (Enteric Coated) Tablet PO 09/14/24 07:59
DAILY JANY
Bisacodyl 10 mg 08/16/24 14:54
Bisacodyl 10 Mg Rectal Suppository RECTAL 09/13/24 14:53
[id number] PRN
constipation
Budesonide/Formoterol Fumarate 2 puff 08/16/24 20:00 08/17/24 08:30
Symbicort Inhaler 160/4.5 INH 09/13/24 19:59 Not Given
R BID JANY
Protocol
Diphenhydramine HCl 25 mg 08/16/24 22:00 08/16/24 22:15
Diphenhydramine 25 Mg Capsule PO 09/13/24 21:59 25 mg
HS JANY Administration
Fentanyl Citrate 50 mcg 08/16/24 10:16
Fentanyl (50 Mcg/Ml) 100 Mcg/2 Ml Ampul IV 08/17/24 10:17
[id number] PRN
moderate back pain
Guaifenesin 600 mg 08/16/24 20:00 08/16/24 19:35
Guaifenesin 600 Mg Extended Release Tablet PO 09/13/24 19:59 600 mg
Q12 JANY Administration
Hydrocortisone 0 applic 08/16/24 20:00 08/16/24 19:38
Hydrocortisone 1% (Cream) Tube TOPICAL 09/13/24 19:59 Not Given
BID JANY
Isosorbide Mononitrate 30 mg 08/17/24 08:00
Isosorbide Mononitrate 30 Mg Extended Release Tablet PO 09/14/24 07:59
DAILY JANY
Midazolam HCl 1 mg 08/16/24 10:16
Midazolam (Preservative Free) 1 Mg/Ml 2 Ml Vial IV 08/17/24 10:17
Q5MPRN PRN
anxiety
Montelukast Sodium 10 mg 08/17/24 08:00
Montelukast Sodium 10 Mg Tablet PO 09/14/24 07:59
DAILY JANY
Nitroglycerin 0.4 mg 08/16/24 10:16
Nitroglycerin 0.4 Mg Sl Tablet SL 08/17/24 10:17
[id number] PRN
chest pain or SBP > 150 mmHg
Polyethylene Glycol 17 grams 08/16/24 14:54
Polyethylene Glycol Powder 17 Grams Packet PO 09/13/24 14:53
DAILYPRN PRN
constipation
Rosuvastatin Calcium 10 mg 08/16/24 18:00 08/16/24 17:27
Rosuvastatin (Crestor) 10 Mg Tablet PO 09/13/24 17:59 10 mg
QPM JANY Administration
Sodium Chloride 0 flush 08/16/24 10:00
Sodium Chloride 0.9% (Flush) Syringe IV 09/13/24 09:59
PER PROTOCOL JANY
Review of Systems
-
History Source: Patient
Constitutional: Reports Weight Loss (Reports recent weight loss, likely secondary to fluid. No substantial weight loss without trying over the last 6 to 12 months)
EENT: Reports No Symptoms
Respiratory: Reports No Symptoms
Cardiac: Reports No Symptoms
GI: Reports Abdominal Pain and Constipated; Denies Bloody Stools
: Reports No Symptoms
Neuro: Reports No Symptoms
Physical Exam
-
General: Well Developed, Well Nourished, No Apparent Distress and Comfortable
Cardiology: Normal Sinus Rhythm
GI: Soft and Other (Abdominal pain most pronounced in left and right lower quadrants. No left upper quadrant or right upper quadrant abdominal pain to tenderness. No rebound, no guarding. No masses palpable.)
Skin: Warm and Dry
Psych: Calm and Intact Judgement/Insight
Labs
Lab Results
WBC 9.2 10^3/uL (4.8-10.8) 08/17/24 03:24
RBC 4.29 10^6/uL (4.70-6.10) L 08/17/24 03:24
Hgb 13.3 g/dL (13.0-18.0) D 08/17/24 03:24
Hct 39.0 % (39.0-52.0) 08/17/24 03:24
MCV 90.9 fL (80.0-94.0) 08/17/24 03:24
MCH 31.0 pg (27.0-31.0) 08/17/24 03:24
MCHC 34.1 g/dL (33.0-37.0) 08/17/24 03:24
RDW 13.1 % (11.5-14.5) 08/17/24 03:24
Plt Count 132 10^3/uL (130-400) 08/17/24 03:24
MPV 11.1 fL (7.4-10.4) H 08/17/24 03:24
Abs Immat Gran (auto) Cancelled 08/16/24 14:54
Absolute Neuts (auto) Cancelled 08/16/24 14:54
Absolute Lymphs (auto) Cancelled 08/16/24 14:54
Absolute Monos (auto) Cancelled 08/16/24 14:54
Absolute Eos (auto) Cancelled 08/16/24 14:54
Absolute Basos (auto) Cancelled 08/16/24 14:54
Immature Gran % Cancelled 08/16/24 14:54
Neutrophils % Cancelled 08/16/24 14:54
Lymphocytes % Cancelled 08/16/24 14:54
Monocytes % Cancelled 08/16/24 14:54
Eosinophils % Cancelled 08/16/24 14:54
Basophils % Cancelled 08/16/24 14:54
Creatinine 1.4 mg/dL (0.7-1.3) H 08/17/24 03:24
Vital Signs
Vital Signs
Temp Pulse Resp BP Pulse Ox
97.7 F 60 20 111/47 94
08/17/24 06:51 08/17/24 02:07 08/17/24 06:51 08/17/24 02:07 08/17/24 06:51
[2024-08-17] MEDS: SINGULAIR 10 MG PO (09:10)
[2024-08-17] MEDS: MUCINEX 600 MG PO ×2 (09:10→21:08)
[2024-08-17] MEDS: IMDUR (EXTENDED RELEASE) 30 MG PO (09:11)
[2024-08-17] MEDS: ASPIR LOW (ENTERIC COATED) 81 MG PO (09:11)
[2024-08-17] MEDS: HYDROCORTISONE 1% CREAM TOPICAL ×2 (09:11→21:08)
--- NOTE | 2024-08-17 10:36 | PTCARENOTE ---
received patient this am, monitor shows NSR, VSS, right fem dsg. D/I, distal pulse weak but palpable. MRSA swab obtained and sent to lab. patient remains on modified contact until results come back.
--- NOTE | 2024-08-17 11:03 | CM ---
Reviewed chart. Met with Mr. Duval to review discharge plans. He states he is currently staying with a friend in a hotel room at [facility]. He states he has been looking into a rent to buy program. He states prior to admission he was
independent with ambulation and adls. He states he does not have any DME in the home. He states he has a prescription plan and uses [facility]. Will need to see his current functional level to see if he will have any skilled care needs. Medical
work-up in progress. The discharge plan is to return back to his hotel room at [facility] when medically stable.
--- NOTE | 2024-08-17 14:10 | CON.GI ---
Addendum entered and electronically signed by Beryl Platt MD 08/17/24 20:12:
I saw and examined the patient.
The PATIENT REGISTRATION SUPERVISOR or PA's note was reviewed and I agree with the note.
Comment: 69-year-old male with history of hypertension, high cholesterol, congestive heart failure, chronic kidney disease, history of prior alcohol abuse, presenting with left-sided chest pain radiated to the arm, subsequent cardiac catheterization
showed nonobstructive coronary artery disease, no intervention performed but subsequent CT angiogram showing possible 4 cm pancreatic head mass concerning for malignancy with mild dary hepatic and peripancreatic lymph nodes and few lesions on the
liver. No biliary or pancreatic ductal dilation noted. Patient does report upper and lower abdominal pain, chronic constipation and also some weight loss in the last few months. LFTs and lipase within normal limits.
- Incidental pancreatic head mass noted on CT angiogram without any biliary or pancreatic ductal dilation
Agree with MRI of the abdomen with MRCP
Discussed with advanced endoscopy fellow Dr. Gennaro Lang at [facility], possible down and back procedure for EUS on Saturday.
Reviewed oncology evaluation.
Will follow
Original Note:
Consultation
-
Date/Time Consultation Requested: 08/17/24 1300
Date/Time Consultation Performed: 08/17/24 1400
Requesting Provider: Godwin Castillo DO
Performing Provider: SANDHYA Salomon, Beryl Platt MD
Reason for Consultation: abnormal imaging
Medical History
Chief Complaint / HPI
Chief Complaint: chest pain
History of Present Illness:
Pt is a 69yo with hx asthma, CHF, HTN, hypercholesterolemia, CKD, , coronary spasm, Klinefelter's, prior ETOH/drug, BEA/restrictive lung disease, b/l TKR, splenectomy/adrenal gland removal with thrombocytopenia with onset of chest pain with
radiation to arm. On admission noted with hypotension and troponin up to 0.478 with concern for NSTEMI. Pt completed cath after admission wit noted with 50 % lesion in ostium right posterior lateral branch and evidence of diffuse. Pt also
completed CTA on admission with multiple chronic findings but concern for 4 cm pancreatic head mass with concern for adeno CA and mild portal hepatis and peripancreatic lymphadenopathy and new small hepatic mets and moderate stool in colon.
In review with patient he admits to weight loss with nausea and vomiting at times. he admits to lower with some upper abdominal pain and constipation. He was taking miralax with improvement but admits to running out and inability to afford
medication. Pt denies dysphagia, GERD, diarrhea, or rectal bleeding. Last colonoscopy about 7 years ago at [facility] did not recall any abnormal findings. Denies NSAID or anticoagulation use.
Past Medical History
Past Medical History: Asthma, CHF, HTN, Hypercholesterolemia, Renal Failure (CKD), Valvular Disease () and Other (coronary spasm, Klinefelter's, prior ETOH/drug, thrombocytopenai)
Past Surgical History: Orthopedic, Urological and Other (splenectomy, adrenal gland removal )
Social History
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
Alcohol: Former
Drug: Former User
Personal:
Living: Homeless
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
Family History
Family History: Other (no family hx colon CA or polyps)
Allergies / Home Medications
Allergy/AdvReac Type Severity Reaction Status Date / Time
docusate (From Senna-S) Allergy Mild Itching Verified 08/17/24 04:49
senna (From Senna-S) Allergy Mild Itching Verified 08/17/24 04:49
lisinopril Allergy Unknown Unknown Verified 08/16/24 07:05
modafinil Allergy Unknown Unknown Verified 08/16/24 07:05
acetaminophen (From Percocet) Allergy Itching Verified 08/17/24 02:26
oxycodone (From Percocet) Allergy Itching Verified 08/17/24 02:26
�Medication �Instructions �Recorded
acetaminophen 500 mg tablet 1,000 mg PO HSPRN PRN mild pain 04/10/23
(Acetaminophen Extra Strength)
isosorbide mononitrate 60 mg 60 mg PO DAILY #30 tabs 04/12/23
tablet,extended release 24 hr
losartan 100 mg tablet 100 mg PO DAILY Blood Pressure 06/02/23
diphenhydramine HCl 25 mg capsule 25 mg PO HS Sleep 03/13/24
(Benadryl)
albuterol sulfate 90 mcg/actuation 2 puff inhalation R Q6HPRN PRN 05/30/24
aerosol inhaler shortness of breath
aspirin 81 mg tablet,delayed 81 mg PO DAILY Blood Clot 05/30/24
release Prevention/Tx
diltiazem HCl 240 mg 240 mg PO DAILY Blood Pressure 05/30/24
capsule,extended release 24 hr
montelukast 10 mg tablet 10 mg PO DAILY Allergies 05/30/24
diltiazem HCl 360 mg 360 mg PO DAILY #30 caps 06/01/24
capsule,extended release 24 hr
furosemide 40 mg tablet 40 mg PO BID AT 0800,1600 #60 tabs 06/01/24
rosuvastatin 10 mg tablet 10 mg PO QPM #0 tabs 06/01/24
Review of Systems
-
History Source: Patient
Constitutional: Reports Weight Loss and Fatigue
Respiratory: Reports Cough
Cardiac: Reports Chest Pain
Vital Signs
Temp Pulse Resp BP Pulse Ox
97.5 F 60 20 111/47 91
08/17/24 10:55 08/17/24 02:07 08/17/24 10:55 08/17/24 02:07 08/17/24 10:55
Physical Exam
Exam
General: Well Developed and Well Nourished
HEENT: Normocephalic and Anicteric
Respiratory: Clear
Cardiac: Regular Rhythm
GI: Soft, Non Tender, Non Distended and Other (large abdomen )
Genito-urinary: No Costovertebral Tender
Musculoskeletal: No Clubbing and No Cyanosis
Skin: Warm and Dry
Neuro: Awake, Alert and AO x 3
Psych: Calm
Results
WBC 9.2 10^3/uL (4.8-10.8) 08/17/24 03:24
Hgb 13.3 g/dL (13.0-18.0) D 08/17/24 03:24
Hct 39.0 % (39.0-52.0) 08/17/24 03:24
MCV 90.9 fL (80.0-94.0) 08/17/24 03:24
Plt Count 132 10^3/uL (130-400) 08/17/24 03:24
Absolute Neuts (auto) Cancelled 08/16/24 14:54
PT Cancelled 08/16/24 14:54
INR Cancelled 08/16/24 14:54
APTT Cancelled 08/16/24 14:54
Sodium 135 mmol/L (135-145) 08/17/24 03:24
Potassium 3.7 mmol/L (3.5-5.1) 08/17/24 03:24
Chloride 100 mmol/L (98-107) 08/17/24 03:24
Carbon Dioxide 29 mmol/L (22-30) 08/17/24 03:24
BUN 28 mg/dl (9-20) H 08/17/24 03:24
Creatinine 1.4 mg/dL (0.7-1.3) H 08/17/24 03:24
Calcium 8.7 mg/dl (8.4-10.2) 08/17/24 03:24
Total Bilirubin Cancelled 08/16/24 14:54
AST Cancelled 08/16/24 14:54
ALT Cancelled 08/16/24 14:54
Alkaline Phosphatase Cancelled 08/16/24 14:54
Lipase Cancelled 08/16/24 07:32
Diagnostic Image Results:
08/16/24 CT Chest/abd/pelvis Angio W/wo
CHEST CTA:
1. Mild cardiomegaly.
2. Mild to moderate calcification in the aortic valve.
3. Moderate elevation of the right hemidiaphragm with chronic compressive subsegmental atelectasis in the right lower and middle lobes.
4. Moderate left lower lobe bronchitis.
5. Chronic granulomatous disease infection.
6. Moderate multilevel discogenic degenerative disease in the thoracic spine.
ABDOMEN and PELVIS CTA:
1. 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 Acute focal pancreatitis is considered less likely.
2. Mild dary hepatis and peripancreatic lymphadenopathy (probably cesar metastatic disease).
3. New small low-attenuation hepatic lesions (probably hepatic metastases).
4. 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
5. Mild chronic bilateral renal disease.
6. Severe calcific atherosclerotic plaque in the abdominal aorta, iliac, and renal arteries.
7. Moderate amount of fecal material throughout the proximal colon.
8. Severe lower lumbar facet joint arthrosis.
Prior GI Procedures:
EGD: none
Colonoscopy: 7 years ago [facility] recall as normal
Assessment / Plan
-
Pt is a 69yo with hx asthma, CHF, HTN, hypercholesterolemia, CKD, , coronary spasm, Klinefelter's, prior ETOH/drug, BEA/restrictive lung disease, b/l TKR, splenectomy/adrenal gland removal with thrombocytopenia with onset of chest pain with
radiation to arm. On admission noted with hypotension and troponin up to 0.478 with concern for NSTEMI. Pt completed cath after admission wit noted with 50 % lesion in ostium right posterior lateral branch and evidence of diffuse. Pt also
completed CTA on admission with multiple chronic findings but concern for 4 cm pancreatic head mass with concern for adeno CA and mild portal hepatis and peripancreatic lymphadenopathy and new small hepatic mets and moderate stool in colon. In
review with patient he admits to weight loss with nausea and vomiting at times. he admits to lower with some upper abdominal pain and constipation. He was taking miralax with improvement but admits to running out and inability to afford
medication. Pt denies dysphagia, GERD, diarrhea, or rectal bleeding. Last colonoscopy about 7 years ago at [facility] did not recall any abnormal findings. Denies NSAID or anticoagulation use.
-CTA concern for 4 cm pancreatic head mass with mild dary hepatis and peripancreatic lymphadenopathy with small liver mass
-constipation with moderate stool in colon on imging
-chest pain with elevated trop on admission concern for NSTEMI
-PAF
-leukocytosis now resolved
-elevated lactate
other med problems:
-asthma
-CHF
-HTN
-hyperlipidemia
-CKD
-- moderate
-coronary spasm
-Klinefelter's
- prior ETOH/drug
-BEA/restrictive lung disease
- b/l TKR
-splenectomy/adrenal gland removal
-thrombocytopenia
-homelessness
PLAN:
Imaging with concern for new pancreatic CA- pt aware of finding
for MRI abdomen
Dr. Platt reviewed with [facility] for EUS and bx-- as Dr. Steen on vacation to see if patient can be done as down and back for EUS and biopsy as difficulty with rides and homelessness
on admission LFT with bili 1.4 otherwise normal LFT's and lipase
s/p oncology eval to see if liver biospy also needed
pt current off anticoaagulation
cont ducolax with senna and add miralax daily with constipation and moderate stool on exam
monitor platlets with hx thrombocytopenia currently stable
support given
-
-
Thank you for consultation and allowing me to participate in the patient's care. Please call the enhanced environmental operator GI physician during the after hours with any questions or concerns.
[2024-08-17] MEDS: MIRALAX 17 GRAMS PO (15:39)
--- NOTE | 2024-08-17 16:12 | W.PN.UPDATE ---
Update Note
Progress Note Update
- IR consulted for biopsy of small hypodense hepatic lesions suspicious for mets in setting of pancreatic head mass
- CT from 08/16/24 reviewed. Several small hypodense lesions, the largest a 12 mm subcapsular lesion the posterior right lobe. hypoplastic liver with colonic interpostion.
- Pt currently on 81mg asa. SIR guidelines recommend at least a 3 day hold as this is considered a high risk biopsy. Would ask cardiology if this is allowable. Even if aspirin can be held, I think the biopsy would be difficult with no guarantee of
obtaining a good sample with either US or CT guidance.
[2024-08-17] MEDS: CRESTOR 10 MG PO (17:09)
[2024-08-17 17:46] LABS: ALT (SGPT) 27 U/L (0-50); AST (SGOT) 50 U/L (17-59); Albumin 3.2 g/dl (3.5-5.0); Alkaline Phosphatase 56 U/L (38-126); Direct Bilirubin 0.3 mg/dl (0.0-0.4); Lipase 182 U/L (23-300); Total Bilirubin 0.7 mg/dl (0.2-1.3); Total Protein 5.8 g/dl (6.3-8.2)
[2024-08-17 17:52] LABS: APTT 33.2 Sec (23.4-35.0)
--- NOTE | 2024-08-17 17:53 | PTCARENOTE ---
TT Dr. Escalera, patient may go off telemetry for MRI.
--- NOTE | 2024-08-17 18:20 | PTCARENOTE ---
To MRI via wc accompanied by nurse.
[2024-08-17] MEDS: SYMBICORT 160/4.5 MCG INHALER 2 PUFF INH (20:26)
[2024-08-17 20:28] LABS: CEA 25.3 ng/ml
[2024-08-17] MEDS: HEPARIN 5000 UNITS SC (21:07)
[2024-08-17] MEDS: DILAUDID 0.25 MG IV (21:08)
--- NOTE | 2024-08-17 21:31 | PTCARENOTE ---
patient returned from MRI at the change of shift. no issues. patient complaining of 7/10 lower abdominal pain. tender on palpitation. updated Slick Chan MANAGER TRANSMISSION for pain medication order. patient states having an reaction to percocet last night-
'itchy head.' one time order of Dilaudid given-see mar. denies any cp/sob. SR on tele- 70s. bp 127/54. R groin site intact. reviewed plan of care with patient and verbalized understanding. call baldwin within reach. makes needs known.
[2024-08-17 22:17] LABS: Hepatitis C Antibody Negative (Negative)
[2024-08-18 05:00] VITALS: BP 124/56
[2024-08-18] MEDS: DULCOLAX 10 MG RECTAL (05:45)
[2024-08-18 05:49] VITALS: BMI 34.1
[2024-08-18 05:50] LABS: ALT (SGPT) 22 U/L (0-50); AST (SGOT) 31 U/L (17-59); Albumin 3.1 g/dl (3.5-5.0); Alkaline Phosphatase 58 U/L (38-126); Blood Urea Nitrogen 23 mg/dl (9-20); Carbon Dioxide 29 mmol/L (22-30); Chloride 102 mmol/L (98-107); Estimated Creatinine Clearance 91 ml/min; Glucose 125 mg/dl (70-99); Potassium 4.3 mmol/L (3.5-5.1); Sodium 135 mmol/L (135-145); Total Bilirubin 0.7 mg/dl (0.2-1.3); Total Protein 5.6 g/dl (6.3-8.2); eGFR > 60.00
[2024-08-18 06:01] LABS: Hematocrit 36.8 % (39.0-52.0); Hemoglobin 12.8 g/dL (13.0-18.0); Mean Corp Hgb Conc. 34.8 g/dL (33.0-37.0); Mean Corpuscular Hgb 31.3 pg (27.0-31.0); Mean Platelet Volume 11.6 fL (7.4-10.4); Platelet Count 124 10^3/uL (130-400); Red Blood Cell Count 4.09 10^6/uL (4.70-6.10); Red Cell Dist. Width 12.8 % (11.5-14.5); White Blood Cell Count 9.2 10^3/uL (4.8-10.8)
[2024-08-18] MEDS: SYMBICORT 160/4.5 MCG INHALER 2 PUFF INH ×2 (07:19→20:05)
--- NOTE | 2024-08-18 07:20 | W.PN.HOSP.TC ---
Addendum entered and electronically signed by Marielle Boothe MD 08/18/24 17:22:
I saw and evaluated the patient independently. I reviewed the resident�s note and agree with findings and plan as documented by Dr. Romano.
GENERAL: well developed, well nourished, male in no apparent distress
HEENT: NC/AT--no O2 requirements
HEART: regular rate and rhythm, +S1, +S2, SAMREEN
LUNGS : clear to auscultation bilaterally
ABDOM: soft, diffusely tender without guarding or rebound, nondistended, + bowel sounds
EXT: no cyanosis, clubbing, or edema
NEUROLOGIC: grossly intact
NSTEMI--presented with chest pain and elevated troponin--apprec cards--s/p cardiac cath which showed coronary artery vasospasm with improvement with intra-artery nitroglycerin--agree with diltiazem, Imdur, asa, statin
-Echocardiogram 08/17- Normal biventricular size and systolic function without regional wall motion abnormality. Moderate concentric left ventricular hypertrophy. Diastolic function indeterminate. Moderate aortic stenosis, mean gradient 26 mmHg. MURIEL
1.7 cmsq. No significant change since the prior study of 03/13/2024 when the mean gradient across the AoV was 27 mmH and the estimated AoV area was 1.4 cmsq.
Pancreatic head mass--suspicion for pancreatic cancer with Suspicion for liver metastases--States he has been losing a lot of weight unintentionally recently, abdomen symptoms with large meals--apprec onc--pt is homeless which will impact follow
up--apprec onc--MRI abdomen confirms pancreatic head neoplasm with numerous scattered hepatic mets--may need liver biopsy of nodules--CEA 25.3 (elevated) and CA 19-9 pending--plan for transfer to [place] for EUS (down and back only)
Paroxysmal atrial fibrillation--Currently normal sinus rhythm--Rate controlled with diltiazem--Per cardiology note, declined AC
Chronic HFpEF with CAD s/p NSTEMI--cont aspirin, Lasix, losartan, Crestor, diltiazem--Not currently on any GDMT for HFpEF--Consider SGLT2i as above
BEA with Restrictive lung disease--Unclear etiology for ILD, no known ILD history--since pt homeless doubt he is using CPAP--cont MDIs
DVT proph-- SCDs
CODE STATUS-- Full code
Dr. Romano called pt son to inform him of all above
Original Note:
Today's Communication/Plan
-
;/
Assessment / Plan
Assessment / Plan
Assessment/plan
#NSTEMI
# S/p [facility] with cardiac catheterization-coronary arteriospasm
-Presented with typical chest pain with elevated troponin (0.478) and lateral ST depression
-Cardiac catheterization showed stable, non-occlusive luminal irregularities
-home Diltiazem to 240mg, Start on Isosorbide mononitrate
-Continue home aspirin(Holding for biopsy), statin
-No indication for heparin
-Echocardiogram 08/17- Normal biventricular size and systolic function without regional wall motion abnormality. Moderate concentric left ventricular hypertrophy. Diastolic function indeterminate. Moderate aortic stenosis, mean gradient 26 mmHg. MURIEL
1.7 cmsq. No significant change since the prior study of 03/13/2024 when the mean gradient across the AoV was 27 mmH and the estimated AoV area was 1.4 cmsq.
#Pancreatic head mass with liver metastases
-States he has been losing a lot of weight unintentionally recently, abdomen symptoms with large meals
-Oncology following.
-MRI abdomen with and without contrast-Pancreatic head neoplasm measures up to 3.5 cm. Associated mild dilatation of the main pancreatic duct. Intact surrounding vasculature. Numerous scattered hepatic metastases throughout both hepatic lobes.
Metastatic locoregional lymphadenopathy. A 1.0 cm pancreatic body cystic lesion without suspicious features likely represents a pseudocyst or side branch intraductal papillary mucinous neoplasm.
-IR consulted to biopsy liver lesion. Aspirin on hold
-GI following- Scheduled for EUS Imaging studies at [facility]
-CEA 25.3, CEA 19-9 pending
#Paroxysmal atrial fibrillation
-Currently normal sinus rhythm
-Rate controlled with diltiazem
-Per cardiology note, declined AC
#Chronic HFpEF
#CAD s/p NSTEMI
-Stable, euvolemic on exam
-Home regimen includes aspirin, Lasix, losartan, Crestor, diltiazem
-Consider SGLT2i
-Monitor I's/O's and weights
-Echocardiogram as above
#BEA
#Restrictive lung disease
-Unclear etiology for ILD, no known ILD history
-Home meds include albuterol sulfate as needed
-Currently stable on RA, monitor respiratory status
DVT prophylaxis; SCDs
CODE STATUS: Full code
Spoke to son (Balta [phone]) @14:10 to give updates regarding patient's care. Answered all questions appropriately.
Anticipated Discharge: > 48 hours
Subjective/Interval History
-
Patient seen and examined at bedside. Reports abdominal pain overnight that is a 7 out of 10. Pain in lower abdominal region. Does not radiate anywhere else. Denies Nausea, vomiting
Objective Data
-
Labs:
Laboratory Results
08/18/24
05:08
WBC 9.2
Hgb 12.8 L
Hct 36.8 L
Plt Count 124 L
Sodium 135
Potassium 4.3
Chloride 102
Carbon Dioxide 29
BUN 23 H
Creatinine 1.0
Glucose 125 H
Calcium 9.0
Total Bilirubin 0.7
AST 31
ALT 22
Alkaline Phosphatase 58
Vital Signs:
Vital Signs
Temp Pulse Resp BP Pulse Ox
98.9 F 71 20 124/56 97
08/18/24 05:03 08/18/24 05:00 08/18/24 05:03 08/18/24 05:00 08/18/24 05:03
I&O
08/17/24 08/18/24 08/19/24
06:59 06:59 06:59
Intake Total 720 / 720
Output Total 900 / 900 1200 / 1200
Balance -180 / -180 -1200 / -1200
Review of Systems
-
All other systems: Reviewed and negative (Except as documented)
Physical Exam
-
General: No Apparent Distress and Comfortable
Respiratory: Clear to Auscultation; Negative Wheezes, Rales or Rhonchi
Cardiac: Regular Rhythm, S1/S2 and Murmur
GI: Soft, Nondistended, Normal Bowel Sounds and Tender (Generalized abdominal tenderness in lower abdomen region)
Musculoskeletal: No Clubbing
Neuro: Awake, Alert, Oriented and AO x 3
Psych: Calm
[2024-08-18 07:21] VITALS: BP 124/86
[2024-08-18] MEDS: MIRALAX 17 GRAMS PO (09:10)
[2024-08-18] MEDS: MUCINEX 600 MG PO ×2 (09:11→19:54)
[2024-08-18] MEDS: HEPARIN 5000 UNITS SC (09:11)
[2024-08-18] MEDS: ASPIR LOW (ENTERIC COATED) PO (09:11)
[2024-08-18] MEDS: SINGULAIR 10 MG PO (09:11)
[2024-08-18] MEDS: IMDUR (EXTENDED RELEASE) 30 MG PO (09:11)
[2024-08-18] MEDS: HYDROCORTISONE 1% CREAM TOPICAL ×2 (09:12→21:22)
--- NOTE | 2024-08-18 09:19 | W.PN.ONC ---
Today's Communication / Plan
-
Patient to be sent to [facility] for GI scope and possible biopsy
Anticoagulation management per cardiology
Impression
Impression
Pancreatic head mass
Suspicion for liver metastasis
NSTEMI
Chronic heart failure preserved ejection fraction
A-fib
BEA/restrictive lung disease
Homelessness
Plan
Plan
#Pancreatic head mass
#Liver nodules
Patient reports he has been having abdominal pain worse with eating, and constipation for 'years' reports no jaundice, no bloody or changing stool color. Reports no unintentional weight loss
Reportedly multiple sisters in his family have had breast and ovarian cancer in the past, no personal history of cancer in patient
Could potentially be genetic component, patient will require [employer] sequencing as an outpatient to confirm. Can also consider doing liquid biopsy to evaluate for BRCA mutations. Will consider genetic counseling and test as an outpatient in
follow-up.
CT chest abdomen pelvis with contrast demonstrated new heterogeneous attenuating mass in the head of the pancreas largest dimension 4.0 cm. Also has mildly enlarged retroperitoneal lymphadenopathy
Multiple low-attenuation lesions in the left and right lobe of his liver. Which appear new compared to imaging from 2022
Patient will require pathology to confirm diagnosis, easiest biopsy spot is likely one of his liver metastasis
CEA 25.3, CA 19-9 pending
Abdominal MRI was read as 3.5 cm pancreatic head neoplasm with intact surrounding vasculature. Numerous scattered hepatic metastases throughout bilateral hepatic lobes. Metastatic local regional lymphadenopathy and 1.0 cm pancreatic body cystic
lesion.
Interventional radiology evaluated the patient and determined patient would require at least a 3-day hold of his aspirin as this is a high risk biopsy. Cardiology reports okay to hold aspirin
Evaluated by GI, planning for patient to be sent to [facility] for GI EUS and biopsy
Further discussions contingent upon biopsy results and staging. Patient's performance status seems strong, would pursue aggressive treatment. Patient in agreement
#NSTEMI
#Chronic heart failure preserved ejection fraction
Status post left heart catheterization
Supportive measures and management per cardiology
Anticoagulation management per cardiology
#Constipation
Patient complaining of constipation, he is concerned about a bowel obstruction and wants imaging. Patient is passing gas and had a bowel movement this morning. CT scan and MRI this admission did not demonstrate signs of obstruction
Subjective/Objective
Subjective/Objective
Patient complaining of constipation
Vital Signs:
Vital Signs
Temp Pulse Resp BP Pulse Ox
98 F 76 16 124/56 97
08/18/24 07:17 08/18/24 07:26 08/18/24 07:26 08/18/24 05:00 08/18/24 07:26
Lab Results:
Laboratory Data
WBC 9.2 10^3/uL (4.8-10.8) 08/18/24 05:08
Hgb 12.8 g/dL (13.0-18.0) L 08/18/24 05:08
Plt Count 124 10^3/uL (130-400) L 08/18/24 05:08
PT Cancelled 08/16/24 14:54
INR Cancelled 08/16/24 14:54
APTT 33.2 Sec (23.4-35.0) 08/17/24 17:32
eGFR > 60.00 08/18/24 05:08
Orders
Orders
Orders From Last 24 Hours
08/17/24 10:37
MRI Abdomen [MR Abdomen W/o & W Contrast] Routine
--- NOTE | 2024-08-18 09:39 | W.PN.CD ---
Today's Communication / Plan
-
No chest pain.
Continue Imdur. Resume diltiazem.
Okay to hold aspirin for biopsy.
Cardiology will sign off at this time. Please call with any additional questions or concerns.
Impression / Plan
-
Impression/Plan: 69 year-old male (known to Dr. Briggs, his primary finnish rubber) with hypertension, dyslipidemia, non-obstructive CAD, coronary vasospasm, chronic HFpEF, moderate aortic stenosis, prediabetes, COPD, Klinefelter's, history of
EtOH/drug abuse, homelessness and noncompliance, who is here with chest pain and elevated troponin, found to have coronary arteriospasm on cardiac catheterization. CTA reveals pancreatic head mass with liver lesions concerning for malignancy.
#NSTEMI with coronary arteriospasm
-Acute on chronic.
-Presented with chest pain. Troponin 0.478. ECG with lateral ST depressions.
-Cardiac catheterization showed stable, non-occlusive luminal irregularities. Compared to prior catheterization, the arteries appeared smaller. IC nitroglycerin resulted in dilation of the arteries, confirming that symptoms are likely from
coronary arteriospasm.
-No role for heparin.
-Continue daily ASA. OK to hold for biopsy.
-Continue isosorbide mononitrate 30 mg.
-Maintain statin.
#Paroxysmal atrial fibrillation
-Currently in NSR.
-Rate control with diltiazem.
-CHADS2-Vasc = 4 (CHF, HTN, Age x1, vascular disease).
-Declined AC per last outpatient visit note.
#HFpEF
-Chronic, stable.
-Clinically euvolemic (mildly elevated LVEDP =15 mmHg).
-Daily weights.
#Moderate aortic stenosis
-Chronic, stable.
-TTE 03/13/2024: LVEF 55-60%, moderate AAS (42/27 mmHg).
-Gradient on pull back = 21.67 mmHg.
#Pancreatic head mass
-New diagnosis.
-Highly concerning for metastatic pancreatic adenocarcinoma.
-GI consult for possible EGD/EUS + biopsy.
-IR consult for liver lesion biopsy. Hepatic flexure obscuring liver on CT - this will likely limit approach.
Subjective/Interval History:
Chest pain has resolved. He still has abdominal pain.
DATA:
Cardiac Catheterization, 08/16/2024:
CONCLUSIONS
1. Right dominant circulation with a possible 50% lesion in the ostium of the right posterolateral branch and evidence of diffuse coronary artery vessel spasm improved with intracoronary nitroglycerin.
2. Mildly elevated filling pressures (LVEDP = 15 mmHg at 112.9 kg).
3. Mild to moderate aortic valve stenosis (mean gradient 21.67 mmHg).
CT Chest/Abd/Pelvis, 08/16/2024:
CHEST CTA:
1. Mild cardiomegaly.
2. Mild to moderate calcification in the aortic valve.
3. Moderate elevation of the right hemidiaphragm with chronic compressive subsegmental atelectasis in the right lower and middle lobes.
4. Moderate left lower lobe bronchitis.
5. Chronic granulomatous disease infection.
6. Moderate multilevel discogenic degenerative disease in the thoracic spine.
ABDOMEN and PELVIS CTA:
1. 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 Acute focal pancreatitis is considered less likely.
2. Mild dary hepatis and peripancreatic lymphadenopathy (probably cesar metastatic disease).
3. New small low-attenuation hepatic lesions (probably hepatic metastases).
4. 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
5. Mild chronic bilateral renal disease.
6. Severe calcific atherosclerotic plaque in the abdominal aorta, iliac, and renal arteries.
7. Moderate amount of fecal material throughout the proximal colon.
8. Severe lower lumbar facet joint arthrosis.
LE Duplex, 08/16/2024:
IMPRESSION:
No evidence of deep venous thrombosis of the lower extremities bilaterally.
No interval change.
Physical Exam
Vital Signs/Labs
Vital Signs
Temp Pulse Resp BP Pulse Ox
98 F 76 16 124/56 97
08/18/24 07:17 08/18/24 07:26 08/18/24 07:26 08/18/24 05:00 08/18/24 07:26
08/17/24 08/18/24 08/19/24
06:59 06:59 06:59
Actual Weight 256 lb 13.416 oz 258 lb 9.636 oz
08/18/24 05:08
08/18/24 05:08
PT Cancelled 08/16/24 14:54
INR Cancelled 08/16/24 14:54
APTT 33.2 Sec (23.4-35.0) 08/17/24 17:32
Magnesium 2.0 mg/dl (1.6-2.3) 08/18/24 05:08
Triglycerides 74 mg/dl (10-149) 08/17/24 03:24
LDL Cholesterol, Calc 58 mg/dl 08/17/24 03:24
VLDL Cholesterol, Calc 14 mg/dl (0-30) 08/17/24 03:24
HDL Cholesterol 28 mg/dl 08/17/24 03:24
08/16/24
07:16
[id number] Pept 251
LAB Results
08/16/24 08/16/24 08/16/24
07:16 14:54 20:54
Troponin I 0.478 H* Cancelled Cancelled
Physical Exam
Constitutional: No acute distress and Comfortable
Cardiovascular: Rhythm & rate is regular, Pedal edema is absent, S1S2 is normal and Murmur/rub/gallop absent
Respiratory: Respiratory effort normal and Lungs clear to auscul.
Neuro/Psych: AO x 3
Data Reviewed
-
Date of Service: August 18, 2024
Medical Decision Making: Reviewed Test Results, Independent Historian Assessment, Test Interpretation and Review of Case with other Provider
EKG: Tracing Personally Visualized and interpreted
Echo: Report Reviewed by me
Labs: Labs Reviewed by me
--- NOTE | 2024-08-18 10:41 | CM ---
Reviewed chart. Received message Mr. Duval need to go to [facility] tomorrow for a procedure and then return to us the same day. Unit Sec. made ambulance arrangements [facility] for an 8:45-9:00 a.m. transfer time. He is to to [facility] fourth floor. Pre-admission area, (PRA) Prior to admission he resides in a hotel room with a friend., [place]. Prior to admission he was independent with ambulation and adls. He does not have any DME in
the home. He has a prescription plan and uses [facility]. Will need to see his current level of functioning to see if he will have any skilled care needs. Medical work-up in progress. The discharge plan is to return to the motel room when
medically stable.
[2024-08-18 11:36] VITALS: BP 116/60
[2024-08-18] MEDS: CARDIZEM CD 120 MG PO (11:42)
--- NOTE | 2024-08-18 12:16 | PTCARENOTE ---
Discussed plan for transfer to [place], for biopsy. Encouraged questions. Pt verbalized understanding. Will monitor.
--- NOTE | 2024-08-18 14:31 | W.PN.GI.CBS2 ---
Addendum entered and electronically signed by Mary Daniels MD 08/18/24 15:12:
I saw and examined the patient.
The GRAPPLE OPERATOR or PA's note was reviewed and I agree with the note.
Comment: 69-year-old male with history of hypertension, high cholesterol, congestive heart failure, chronic kidney disease, history of prior alcohol abuse, presenting with left-sided chest pain radiated to the arm, subsequent cardiac catheterization
showed nonobstructive coronary artery disease, no intervention performed but subsequent CT angiogram showing possible 4 cm pancreatic head mass concerning for malignancy with mild dary hepatic and peripancreatic lymph nodes and few lesions on the
liver. No biliary or pancreatic ductal dilation noted. Patient does report upper and lower abdominal pain, chronic constipation and also some weight loss in the last few months. LFTs and lipase within normal limits.
MRI 08/17 Pancreatic head neoplasm measures up to 3.5 cm. Associated mild dilatation of the main pancreatic duct. Intact surrounding vasculature. Numerous scattered hepatic metastases throughout both hepatic lobes. Metastatic locoregional
lymphadenopathy. A 1.0 cm pancreatic body cystic lesion without suspicious features likely represents a pseudocyst or side branch intraductal papillary mucinous neoplasm.
Plan EUS tomorrow with biopsy.
D/w pt risks of procedure - bleeding, infection, perforation, pancreatitis.
Further recommendations pending EUS.
Appreciate onc input patient also needs liver biopsy.
Original Note:
Today's Communication / Plan
-
CT and MRI as noted
results reviewed with patient
for down and back 08/19 to [facility] for EUS and biopsy
NPO after midnight
appreciate case management to help arrange transport
hold heparin sq add compression stocking
for eventual liver biopsy- ASA on hold
cont miralax daily with constipation and moderate stool on exam
monitor platelets with hx thrombocytopenia currently stable
add INR for am
to copy chart for transport and films-- films also sent via PACs system
support given
Assessment / Plan
-
Pt is a 69yo with hx asthma, CHF, HTN, hypercholesterolemia, CKD, , coronary spasm, Klinefelter's, prior ETOH/drug, BEA/restrictive lung disease, b/l TKR, splenectomy/adrenal gland removal with thrombocytopenia with onset of chest pain with
radiation to arm. On admission noted with hypotension and troponin up to 0.478 with concern for NSTEMI. Pt completed cath after admission wit noted with 50 % lesion in ostium right posterior lateral branch and evidence of diffuse. Pt also
completed CTA on admission with multiple chronic findings but concern for 4 cm pancreatic head mass with concern for adeno CA and mild portal hepatis and peripancreatic lymphadenopathy and new small hepatic mets and moderate stool in colon. In
review with patient he admits to weight loss with nausea and vomiting at times. he admits to lower with some upper abdominal pain and constipation. He was taking miralax with improvement but admits to running out and inability to afford
medication. Last colonoscopy about 7 years ago at [facility] did not recall any abnormal findings. Denies NSAID or anticoagulation use. MRI as noted
08/17/24 MR abdomen
Pancreatic head neoplasm measures up to 3.5 cm. Associated mild dilatation of the main pancreatic duct. Intact surrounding vasculature.
Numerous scattered hepatic metastases throughout both hepatic lobes.
Metastatic locoregional lymphadenopathy.
A 1.0 cm pancreatic body cystic lesion without suspicious features likely represents a pseudocyst or side branch intraductal papillary mucinous neoplasm.
-CTA concern pancreatic head mass with mild dary hepatis and peripancreatic lymphadenopathy with small liver mass- MRI with mild dilatation of main panc duct
-panc body cyst pseudocyst vs side branch IPMN
-constipation with moderate stool in colon on imaging
-chest pain with elevated trop on admission concern for NSTEMI s/p cards eval and signed off
-PAF with NSR s/p card eval
-leukocytosis now resolved
-elevated lactate
other med problems:
-asthma
-CHF
-HTN
-hyperlipidemia
-CKD
-- moderate
-coronary spasm
-Klinefelter's
- prior ETOH/drug
-BEA/restrictive lung disease
- b/l TKR
-splenectomy/adrenal gland removal
-thrombocytopenia
-homelessness
PLAN:
CT and MRI as noted
results reviewed with patient
for down and back 08/19 to [facility] for EUS and biopsy
NPO after midnight
appreciate case management to help arrange transport
hold heparin sq add compression stocking
for eventual liver biopsy- ASA on hold
cont miralax daily with constipation and moderate stool on exam
monitor platelets with hx thrombocytopenia currently stable
add INR for am
support given
Subjective
Subjective
Date of Service: August 18, 2024
08/18 stool, on cholesterol lowering diet mild abdominal pain no other complaints
Objective
Data Reviewed
Laboratory Data:
Laboratory Results
08/18/24 05:08
08/18/24 05:08
Laboratory Results
PT Cancelled 08/16/24 14:54
INR Cancelled 08/16/24 14:54
APTT 33.2 Sec (23.4-35.0) 08/17/24 17:32
Phosphorus Cancelled 08/16/24 14:54
Magnesium 2.0 mg/dl (1.6-2.3) 08/18/24 05:08
Total Bilirubin 0.7 mg/dl (0.2-1.3) 08/18/24 05:08
AST 31 U/L (17-59) 08/18/24 05:08
ALT 22 U/L (0-50) 08/18/24 05:08
Alkaline Phosphatase 58 U/L (38-126) 08/18/24 05:08
Lipase 182 U/L (23-300) 08/17/24 03:24
Vital Signs and I&O:
Vital Signs
Temp Pulse Resp BP Pulse Ox
98.7 F 73 18 116/60 93
08/18/24 11:31 08/18/24 12:00 08/18/24 11:31 08/18/24 11:42 08/18/24 11:31
I&O
08/17/24 08/18/24 08/19/24
06:59 06:59 06:59
Intake Total 720 / 720
Output Total 900 / 900 1200 / 1200
Balance -180 / -180 -1200 / -1200
Physical Exam
Physical Exam
HEENT: Anicteric
Cardiology: Normal Sinus Rhythm
Pulmonary: Clear
GI: Soft, Non Distended, Tender (minimal mid abdomen tenderness ) and Other (large abdomen )
Neuro: Non Focal
[2024-08-18 15:28] VITALS: BP 123/65
[2024-08-18] MEDS: CRESTOR 10 MG PO (17:50)
[2024-08-18 19:08] VITALS: BP 134/74
[2024-08-18] MEDS: DILAUDID 0.5 MG IV (20:01)
[2024-08-18] MEDS: BENADRYL 25 MG PO (22:01)
[2024-08-18 22:16] VITALS: BP 110/63
[2024-08-18 22:38] LABS: CA 19-9 2884 U/mL (<=35)
--- NOTE | 2024-08-18 23:00 | PTCARENOTE ---
Received pt @ change of shift. AAOx3. VSS, NSR on monitor. C/o abdominal pain-- Dilaudid given-- see MAR. Discussed plan of care for evening and for Tx to [place] for test tomorrow. Pt verbalizes understanding. Call baldwin within reach.
--- NOTE | 2024-08-19 04:19 | DOWNTIME ---
Addendum entered and electronically signed by Claudia Owens RN 08/19/24 14:24:
Correction: Downtime was 08/19/2024 from 0100 to 08/19/2024 at 0415
Original Note:
There was a [employer] Client Receptionist Doctor'S Office Downtime on 08/18/2024 from 0100 to 08/19/2024 at 0415. Downtime documentation of patient's care, including medication administrations, has been reconciled in the electronic record per guidelines. Refer to the
patient's paper chart under the miscellaneous tab to see printed paper medication records and downtime forms.
[2024-08-19 04:36] VITALS: BP 122/78
[2024-08-19 05:18] LABS: INR 1.04; PT 13.9 Sec (11.4-14.6)
[2024-08-19 05:35] VITALS: BMI 34.2
[2024-08-19 05:51] LABS: ALT (SGPT) 19 U/L (0-50); AST (SGOT) 23 U/L (17-59); Albumin 3.3 g/dl (3.5-5.0); Alkaline Phosphatase 62 U/L (38-126); Blood Urea Nitrogen 16 mg/dl (9-20); Calcium 9.1 mg/dl (8.4-10.2); Carbon Dioxide 29 mmol/L (22-30); Chloride 102 mmol/L (98-107); Estimated Creatinine Clearance 101 ml/min; Glucose 133 mg/dl (70-99); Magnesium 2.1 mg/dl (1.6-2.3); Potassium 4.7 mmol/L (3.5-5.1); Sodium 137 mmol/L (135-145); Total Bilirubin 0.9 mg/dl (0.2-1.3); Total Protein 5.9 g/dl (6.3-8.2); eGFR > 60.00
[2024-08-19 07:18] VITALS: BP 102/48
[2024-08-19 07:25] LABS: Glucose - Point of Care 145 mg/dl (70-99)
--- NOTE | 2024-08-19 07:31 | W.PN.HOSP.TC ---
Addendum entered and electronically signed by Marielle Boothe MD 08/19/24 18:42:
I saw and evaluated the patient independently. I reviewed the resident�s note and agree with findings and plan as documented by Dr. Romano.
GENERAL: well developed, well nourished, male in no apparent distress
HEENT: NC/AT--no O2 requirements
HEART: regular rate and rhythm, +S1, +S2, SAMREEN
LUNGS : clear to auscultation bilaterally
ABDOM: soft, diffusely tender without guarding or rebound, nondistended, + bowel sounds
EXT: no cyanosis, clubbing, or edema
NEUROLOGIC: grossly intact
NSTEMI--presented with chest pain and elevated troponin--apprec cards--s/p cardiac cath which showed coronary artery vasospasm with improvement with intra-artery nitroglycerin--agree with diltiazem, Imdur, asa, statin
-Echocardiogram 08/17- Normal biventricular size and systolic function without regional wall motion abnormality. Moderate concentric left ventricular hypertrophy. Diastolic function indeterminate. Moderate aortic stenosis
Pancreatic head mass--suspicion for pancreatic cancer with Suspicion for liver metastases--States he has been losing a lot of weight unintentionally recently, abdomen symptoms with large meals--apprec onc--pt is homeless which will impact follow
up--apprec onc--MRI abdomen confirms pancreatic head neoplasm with numerous scattered hepatic mets--may need liver biopsy of nodules--CEA 25.3 (elevated) and CA 19-9 pending--s/p transfer to [place] for EUS with fine needle biopsy of pancreatic
mass--no need for liver biopsy--can restart asa
Paroxysmal atrial fibrillation--Currently normal sinus rhythm--Rate controlled with diltiazem--Per cardiology note, declined AC
Chronic HFpEF with CAD s/p NSTEMI--cont aspirin, Lasix, losartan, Crestor, diltiazem--Not currently on any GDMT for HFpEF--Consider SGLT2i as above
BEA with Restrictive lung disease--Unclear etiology for ILD, no known ILD history--since pt homeless doubt he is using CPAP--cont MDIs
NERI--resolved--unclear cause
DVT proph-- SCDs
CODE STATUS-- Full code
PT/OT--d/c planning
Original Note:
Today's Communication/Plan
-
;/
Assessment / Plan
Assessment / Plan
Assessment/plan
#NSTEMI
#S/p [facility] with cardiac catheterization-coronary arteriospasm
-Presented with typical chest pain with elevated troponin (0.478) and lateral ST depression
-Cardiac catheterization showed stable, non-occlusive luminal irregularities
-resumed on Home diltiazem, Started on Isosorbide mononitrate
-Continue home aspirin(Holding for biopsy), statin
-No indication for heparin
-Echocardiogram 08/17- Normal biventricular size and systolic function without regional wall motion abnormality. Moderate concentric left ventricular hypertrophy. Diastolic function indeterminate. Moderate aortic stenosis, mean gradient 26 mmHg. MURIEL
1.7 cmsq. No significant change since the prior study of 03/13/2024 when the mean gradient across the AoV was 27 mmH and the estimated AoV area was 1.4 cmsq.
#Pancreatic head mass with liver metastases
-States he has been losing a lot of weight unintentionally recently, abdomen symptoms with large meals
-Oncology following.
-MRI abdomen with and without contrast-Pancreatic head neoplasm measures up to 3.5 cm. Associated mild dilatation of the main pancreatic duct. Intact surrounding vasculature. Numerous scattered hepatic metastases throughout both hepatic lobes.
Metastatic locoregional lymphadenopathy. A 1.0 cm pancreatic body cystic lesion without suspicious features likely represents a pseudocyst or side branch intraductal papillary mucinous neoplasm.
-IR consulted to biopsy liver lesion. Aspirin on hold
-GI following- Scheduled for EUS down and Back at [facility] today.
-Elevated CEA 25.3, CEA 19-9 2884 levels
#Paroxysmal atrial fibrillation
-Currently normal sinus rhythm
-Rate controlled with diltiazem
-Per cardiology note, declined AC
#Chronic HFpEF
#CAD s/p NSTEMI
-Stable, euvolemic on exam
-Home regimen includes aspirin, Lasix, losartan, Crestor, diltiazem
-Consider SGLT2i
-Monitor I's/O's and weights
-Echocardiogram as above
#BEA
#Restrictive lung disease
-Unclear etiology for ILD, no known ILD history
-Home meds include albuterol sulfate as needed
-Currently stable on RA, monitor respiratory status
DVT prophylaxis; SCDs
CODE STATUS: Full code
Anticipated Discharge: > 48 hours
Subjective/Interval History
-
Patient seen and examined at bedside. In no acute distress. Reports improvement of Abdominal pain.
Objective Data
-
Labs:
Laboratory Results
08/19/24
04:47
PT 13.9
INR 1.04
Sodium 137
Potassium 4.7
Chloride 102
Carbon Dioxide 29
BUN 16
Creatinine 0.9
Glucose 133 H
Calcium 9.1
Total Bilirubin 0.9
AST 23
ALT 19
Alkaline Phosphatase 62
Vital Signs:
Vital Signs
Temp Pulse Resp BP Pulse Ox
98.1 F 64 18 122/78 94
08/19/24 07:18 08/19/24 07:18 08/19/24 07:18 08/19/24 04:36 08/19/24 07:18
I&O
08/18/24 08/19/24 08/20/24
06:59 06:59 06:59
Output Total 1200 / 1200 1850 / 1850 375 / 375
Balance -1200 / -1200 -1850 / -1850 -375 / -375
Review of Systems
-
All other systems: Reviewed and negative (Except as documented)
Physical Exam
-
General: No Apparent Distress and Comfortable
Respiratory: Clear to Auscultation; Negative Wheezes, Rales or Rhonchi
Cardiac: Regular Rhythm, S1/S2 and Murmur
GI: Soft, Nondistended, Normal Bowel Sounds and Tender (Generalized abdominal tenderness)
Musculoskeletal: No Clubbing
Neuro: Awake, Alert, Oriented and AO x 3
Psych: Calm
--- NOTE | 2024-08-19 08:00 | PTCARENOTE ---
Assumed care of pt from prev nsg shift; Pt AAOX3 w/no c/o CP or SOB. Pt's VSS w/HR in the 60's & BP 102/48 this AM. 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 Pt w/ LUE midline for IV
access; line flushed & is patent. Pt NPO for EUS at [facility] this AM. Awaiting ambulance transport to [facility] at this time. Pt w/callbell within reach & plan of care ongoing.
[2024-08-19] MEDS: SYMBICORT 160/4.5 MCG INHALER 2 PUFF INH ×2 (08:08→19:48)
[2024-08-19] MEDS: MUCINEX 600 MG PO ×2 (09:06→19:33)
[2024-08-19] MEDS: CARDIZEM CD 120 MG PO (09:06)
[2024-08-19] MEDS: MIRALAX 17 GRAMS PO (09:06)
[2024-08-19] MEDS: IMDUR (EXTENDED RELEASE) 30 MG PO (09:06)
[2024-08-19] MEDS: HYDROCORTISONE 1% CREAM TOPICAL ×2 (09:07→19:33)
[2024-08-19] MEDS: SINGULAIR 10 MG PO (09:07)
--- NOTE | 2024-08-19 09:35 | PTCARENOTE ---
Pt transported [facility] to [facility] for procedure this AM. Pt to return to same room after procedure is completed.
--- NOTE | 2024-08-19 11:53 | PN.CDI ---
CDI
- -
CDI:
Physician Documentation Request
Admit Date: 08/16/24 09:21
Dear Doctor Juan Antonio,
Patient admitted with NSTEMI and pancreatic head mass.
Creatinine results :
Laboratory Tests
08/16/24 08/17/24 08/18/24
07:16 03:24 05:08
Creatinine 1.5 H 1.4 H 1.0
08/19/24
04:47
Creatinine 0.9
Could you please provide a diagnosis that supports the above lab abnormalities and additional evaluation/ monitoring:
NERI
Abnormal lab value clinically insignificant
Other
Criteria for NERI*
1 Increase in serum creatinine by > or = to 0.3 mg/dL (> or = to 26.5 micromol/L) within 48 hours, OR
2 Increase in serum creatinine to > or = to 1.5 times baseline, which is known or presumed to have occurred within 7 days, OR
3 Urine volume < 0.5 nL/kg/hour for six hours
Use of terms such as suspected, likely, concern for, or probable (associated with a specific diagnosis that is being evaluated, monitored, or treated as if it exists) are acceptable and can be coded in the inpatient setting, when documented at the
time of discharge.
Thank you,
Bernie Cho RN, BSN
CDI Specialist
tiger text
Please use your independent medical judgment in providing your response.
--- NOTE | 2024-08-19 15:00 | PTCARENOTE ---
Rec'd report from Joselyn at [facility] PACU. Pt stable s/p EGD w/pancreatic biopsies completed. Pt being picked up by transport back to [facility] at approx [phone] this afternoon. This RN confirmed that our telemetry pack that was sent w/pt is being
returned w/pt.
--- NOTE | 2024-08-19 16:03 | W.PN.UPDATE ---
Update Note
Progress Note Update
panc mass s/p FNA
sharif will reach out to us for path
--- NOTE | 2024-08-19 16:23 | CM ---
Reviewed chart. Mr. Duval was off the floor to go to a procedure at [facility] today. Case management will continue to follow to assist in discharge plans.
[2024-08-19 17:54] VITALS: BP 131/78
--- NOTE | 2024-08-19 17:59 | PTCARENOTE ---
Rec'd pt back from [facility], AAOx3 w/no c/o CP or SOB, pt c/o 'mild 2/10 abd pain'. Pt's VSS w/HR 61, BP 131/78 on arrival to the unit. Pt's pet nutrition specialist placed back on pt. Pt SR on telemetry. Pt w/callbell within reach. Plan of care ongoing.
[2024-08-19] MEDS: CRESTOR 10 MG PO (18:37)
[2024-08-19 18:48] VITALS: BP 130/66
[2024-08-19] MEDS: DILAUDID 0.5 MG IV (19:33)
[2024-08-19 22:08] VITALS: BP 124/72
[2024-08-19 22:12] LABS: Glucose - Point of Care 208 mg/dl (70-99)
[2024-08-19] MEDS: BENADRYL 25 MG PO (22:29)
--- NOTE | 2024-08-19 22:48 | PTCARENOTE ---
Received patient at change of shift. SR on the monitor, HR in the 60s. Pt complained of 6/10 abdominal pain, PRN pain medication administered as per order, see BENJAMIN. MARIO cloth bath. Call baldwin within reach.
[2024-08-20] VITALS (9 sets, daily range): BP systolic 117–152; BP diastolic 65–102; PULSE 79; BMI 34.3
[2024-08-20 02:56] LABS: Hematocrit 36.7 % (39.0-52.0); Hemoglobin 12.5 g/dL (13.0-18.0); Mean Corp Hgb Conc. 34.1 g/dL (33.0-37.0); Mean Corpuscular Hgb 30.9 pg (27.0-31.0); Mean Corpuscular Volume 90.8 fL (80.0-94.0); Mean Platelet Volume 11.7 fL (7.4-10.4); Platelet Count 145 10^3/uL (130-400); Red Blood Cell Count 4.04 10^6/uL (4.70-6.10); White Blood Cell Count 8.5 10^3/uL (4.8-10.8)
[2024-08-20 03:12] LABS: ALT (SGPT) 17 U/L (0-50); AST (SGOT) 21 U/L (17-59); Albumin 3.4 g/dl (3.5-5.0); Alkaline Phosphatase 60 U/L (38-126); Blood Urea Nitrogen 13 mg/dl (9-20); Calcium 8.9 mg/dl (8.4-10.2); Carbon Dioxide 29 mmol/L (22-30); Chloride 104 mmol/L (98-107); Estimated Creatinine Clearance > 125 ml/min; Glucose 118 mg/dl (70-99); Magnesium 2.2 mg/dl (1.6-2.3); Potassium 4.5 mmol/L (3.5-5.1); Sodium 138 mmol/L (135-145); Total Bilirubin 0.9 mg/dl (0.2-1.3); eGFR > 60.00
[2024-08-20 07:04] LABS: Glucose - Point of Care 141 mg/dl (70-99)
--- NOTE | 2024-08-20 07:22 | W.PN.HOSP.TC ---
Addendum entered and electronically signed by Marielle Boothe MD 08/20/24 19:27:
I saw and evaluated the patient independently. I reviewed the resident�s note and agree with findings and plan as documented by Dr. Romano.
GENERAL: well developed, well nourished, male in no apparent distress
HEENT: NC/AT--no O2 requirements
HEART: regular rate and rhythm, +S1, +S2, SAMREEN
LUNGS : clear to auscultation bilaterally
ABDOM: soft, diffusely tender without guarding or rebound, nondistended, + bowel sounds
EXT: no cyanosis, clubbing, or edema
NEUROLOGIC: grossly intact
NSTEMI--presented with chest pain and elevated troponin--apprec cards--s/p cardiac cath which showed coronary artery vasospasm with improvement with intra-artery nitroglycerin--agree with diltiazem, Imdur, asa, statin-Echocardiogram 08/17- Normal
biventricular size and systolic function without regional wall motion abnormality. Moderate concentric left ventricular hypertrophy. Diastolic function indeterminate. Moderate aortic stenosis
Pancreatic head mass--suspicion for pancreatic cancer with Suspicion for liver metastases--States he has been losing a lot of weight unintentionally recently, abdomen symptoms with large meals--apprec onc--pt is homeless which will impact follow
up--apprec onc--MRI abdomen confirms pancreatic head neoplasm with numerous scattered hepatic mets---CEA 25.3 (elevated) and CA 19-9 markedly elevated (2884)--s/p transfer to [place] for EUS with fine needle biopsy of pancreatic mass--no need for liver
biopsy--can restart asa
Paroxysmal atrial fibrillation--Currently normal sinus rhythm--Rate controlled with diltiazem--Per cardiology note, declined AC
Chronic HFpEF with CAD s/p NSTEMI--cont aspirin, Lasix, losartan, Crestor, diltiazem--Not currently on any GDMT for HFpEF--Consider SGLT2i as above
BEA with Restrictive lung disease--Unclear etiology for ILD, no known ILD history--since pt homeless doubt he is using CPAP--cont MDIs
NERI--resolved--unclear cause
DVT proph-- SCDs
CODE STATUS-- Full code
pt cleared for d/c but says he will be on the street if he leaves today--told him, discharge will be tomorrow
Original Note:
Today's Communication/Plan
-
;/
Assessment / Plan
Assessment / Plan
Assessment/plan
#NSTEMI
#S/p [facility] with cardiac catheterization-coronary arteriospasm
-Presented with typical chest pain with elevated troponin (0.478) and lateral ST depression
-Cardiac catheterization showed stable, non-occlusive luminal irregularities
-resumed on Home diltiazem, Started on Isosorbide mononitrate
-Continue home aspirin, statin
-No indication for heparin
-Echocardiogram 08/17- Normal biventricular size and systolic function without regional wall motion abnormality. Moderate concentric left ventricular hypertrophy. Diastolic function indeterminate. Moderate aortic stenosis, mean gradient 26 mmHg. MURIEL
1.7 cmsq. No significant change since the prior study of 03/13/2024 when the mean gradient across the AoV was 27 mmH and the estimated AoV area was 1.4 cmsq.
#Pancreatic head mass with liver metastases
-States he has been losing a lot of weight unintentionally recently, abdomen symptoms with large meals
-Oncology following.
-MRI abdomen with and without contrast-Pancreatic head neoplasm measures up to 3.5 cm. Associated mild dilatation of the main pancreatic duct. Intact surrounding vasculature. Numerous scattered hepatic metastases throughout both hepatic lobes.
Metastatic locoregional lymphadenopathy. A 1.0 cm pancreatic body cystic lesion without suspicious features likely represents a pseudocyst or side branch intraductal papillary mucinous neoplasm.
-IR initially consulted to biopsy liver lesion, now cancelled as we have biopsy of pancreatic mass.
-GI following-s/p EUS with fine needle biopsy of pancreatic mass at [facility] 08/19. Awaiting pathology results.
-Elevated CEA 25.3, CEA 19-9 2884 levels.
#Paroxysmal atrial fibrillation
-Currently normal sinus rhythm
-Rate controlled with diltiazem
-Per cardiology note, declined AC
#Chronic HFpEF
#CAD s/p NSTEMI
-Stable, euvolemic on exam
-Home regimen includes aspirin, Lasix, losartan, Crestor, diltiazem
-Consider SGLT2i
-Monitor I's/O's and weights
-Echocardiogram as above
#NERI on presentation
-Likely pre-Renal etiology.
-Now resolved
#Left Shoulder pain
-Likely musculoskeletal in nature.
-Continue pain control
-PT/OT
#BEA
#Restrictive lung disease
-Unclear etiology for ILD, no known ILD history
-Home meds include albuterol sulfate as needed
-Currently stable on RA, monitor respiratory status
DVT prophylaxis; SCDs
CODE STATUS: Full code
Anticipated Discharge: > 48 hours
Subjective/Interval History
-
Patient seen and examined at bedside. Complaining of mild left shoulder pain. Likely musculoskeletal in nature, as he said pain started because he was 'holding his hand up for a long time'. He denies chest pain, shortness of breath, palpitation. He
admits abdominal pain that improves after administration of Dilaudid. Overall, he is without acute distress.
Objective Data
-
Labs:
Laboratory Results
08/20/24
02:22
WBC 8.5
Hgb 12.5 L
Hct 36.7 L
Plt Count 145
Sodium 138
Potassium 4.5
Chloride 104
Carbon Dioxide 29
BUN 13
Creatinine 0.7
Glucose 118 H
Calcium 8.9
Total Bilirubin 0.9
AST 21
ALT 17
Alkaline Phosphatase 60
Vital Signs:
Vital Signs
Temp Pulse Resp BP Pulse Ox
97.4 F 64 18 124/72 93
08/20/24 06:59 08/20/24 06:59 08/20/24 06:59 08/19/24 22:08 08/20/24 06:59
I&O
08/19/24 08/20/24 08/21/24
06:59 06:59 06:59
Intake Total 1480 / 1480
Output Total 1850 / 1850 2375 / 2375 675 / 675
Balance -1850 / -1850 -895 / -895 -675 / -675
Review of Systems
-
History Source: Patient
Constitutional: Denies Fever
Cardiac: Denies Chest Pain, Diaphoresis, Palpitations or Syncope
Abdomen/GI: Reports Abdominal Pain
Physical Exam
-
General: No Apparent Distress and Comfortable
Respiratory: Clear to Auscultation; Negative Wheezes, Rales or Rhonchi
Cardiac: Regular Rhythm, S1/S2 and Murmur
GI: Soft, Nondistended, Normal Bowel Sounds and Tender (Generalized abdominal tenderness)
Musculoskeletal: Other (On left shoulder: No swelling, deformity. Tenderness over the AC joint. Active and Passive ROM. Muscular strength 5/5)
Neuro: Awake, Alert, Oriented and AO x 3
Psych: Calm
[2024-08-20] MEDS: SYMBICORT 160/4.5 MCG INHALER 2 PUFF INH ×2 (07:38→21:05)
[2024-08-20] MEDS: MUCINEX 600 MG PO ×2 (08:20→19:28)
[2024-08-20] MEDS: MIRALAX 17 GRAMS PO (08:20)
[2024-08-20] MEDS: IMDUR (EXTENDED RELEASE) 30 MG PO (08:21)
[2024-08-20] MEDS: SINGULAIR 10 MG PO (08:21)
[2024-08-20] MEDS: CARDIZEM CD 120 MG PO (08:21)
[2024-08-20] MEDS: HYDROCORTISONE 1% CREAM 1 APPLIC TOPICAL ×2 (08:22→19:28)
--- NOTE | 2024-08-20 11:10 | W.PN.ONC ---
Today's Communication / Plan
-
Okay to restart aspirin for ACS
No need for inpatient liver biopsy at this time if have tissue sample with FNA primary pancreatic mass
Still planning on outpatient follow-up
Impression
Impression
Pancreatic head mass
Suspicion for liver metastasis
NSTEMI
Chronic heart failure preserved ejection fraction
A-fib
BEA/restrictive lung disease
Homelessness
Plan
Plan
#Pancreatic head mass
#Liver nodules
Patient reports he has been having abdominal pain worse with eating, and constipation for 'years' reports no jaundice, no bloody or changing stool color. Reports no unintentional weight loss
Reportedly multiple sisters in his family have had breast and ovarian cancer in the past, no personal history of cancer in patient
Could potentially be genetic component, patient will require [employer] sequencing as an outpatient to confirm. Can also consider doing liquid biopsy to evaluate for BRCA mutations. Will consider genetic counseling and test as an outpatient in
follow-up.
CEA 25.3, CA 19-9 significantly elevated at 2884
Abdominal MRI was read as 3.5 cm pancreatic head neoplasm with intact surrounding vasculature. Numerous scattered hepatic metastases throughout bilateral hepatic lobes. Metastatic local regional lymphadenopathy and 1.0 cm pancreatic body cystic
lesion.
Status post transfer to [facility] for GI scope with FNA biopsy of pancreatic head mass. Final results and pathology pending
No plans for inpatient liver biopsy of suspected metastasis. FNA of primary pancreatic mass is sufficient. Recommend to restart aspirin. Communicated to primary resident
Further discussions contingent upon biopsy results and staging. Patient's performance status seems strong, would pursue aggressive treatment. Patient in agreement
#NSTEMI
#Chronic heart failure preserved ejection fraction
Status post left heart catheterization
Supportive measures and management per cardiology
Anticoagulation management per cardiology
#Constipation
Patient reports constipated requiring MiraLAX, has noted this has been going on for a while. Reports passing gas. Reports change in stool caliber. No recent colonoscopy
#Social issues
Patient is homeless and will have difficulty following up
If required to contact him, phone number of patient is #[phone]. Email is [email or web address]
Subjective/Objective
Subjective/Objective
Reports constipation change in stool caliber over long period time
Vital Signs:
Vital Signs
Temp Pulse Resp BP Pulse Ox
97.4 F 65 16 132/68 93
08/20/24 06:59 08/20/24 08:00 08/20/24 07:40 08/20/24 06:59 08/20/24 08:37
Lab Results:
Laboratory Data
WBC 8.5 10^3/uL (4.8-10.8) 08/20/24 02:22
Hgb 12.5 g/dL (13.0-18.0) L 08/20/24 02:22
Plt Count 145 10^3/uL (130-400) 08/20/24 02:22
PT 13.9 Sec (11.4-14.6) 08/19/24 04:47
INR 1.04 08/19/24 04:47
APTT 33.2 Sec (23.4-35.0) 08/17/24 17:32
eGFR > 60.00 08/20/24 02:22
[2024-08-20] MEDS: ASPIR LOW (ENTERIC COATED) 81 MG PO (11:43)
[2024-08-20 11:53] LABS: Glucose - Point of Care 198 mg/dl (70-99)
--- NOTE | 2024-08-20 12:50 | PTOTSP ---
pt currently requires supervision to no assistance to complete simple ADLs, functional transfers, ambulation. pt demonstrates no acute OT needs at this time, will sign off.
--- NOTE | 2024-08-20 14:51 | W.PN.GI.CBS2 ---
Today's Communication / Plan
-
gi signing off, path pending, onc follow up
Assessment / Plan
-
69-year-old male with history of hypertension, high cholesterol, congestive heart failure, chronic kidney disease, history of prior alcohol abuse, presenting with left-sided chest pain radiated to the arm, subsequent cardiac catheterization showed
nonobstructive coronary artery disease, no intervention performed but subsequent CT angiogram showing possible 4 cm pancreatic head mass concerning for malignancy with mild dary hepatic and peripancreatic lymph nodes and few lesions on the liver.
No biliary or pancreatic ductal dilation noted. Patient does report upper and lower abdominal pain, chronic constipation and also some weight loss in the last few months. LFTs and lipase within normal limits.
MRI 08/17 Pancreatic head neoplasm measures up to 3.5 cm. Associated mild dilatation of the main pancreatic duct. Intact surrounding vasculature. Numerous scattered hepatic metastases throughout both hepatic lobes. Metastatic locoregional
lymphadenopathy. A 1.0 cm pancreatic body cystic lesion without suspicious features likely represents a pseudocyst or side branch intraductal papillary mucinous neoplasm.
EUS/FNA at [place] yesterday.
I sent Dr. Bebe Mahoney adv endo fellow patient cell phone to contact him [phone]. Told pt to make sure to answer phone as Denzel will call with pathology results.
Mild lower abd discomfort likely due to constipation continue miralax, pt asking for script on follow up.
Follow up onc outpatient.
Updated onc/medical team.
Subjective
Subjective
Date of Service: August 20, 2024
some lower abd discomfort
Objective
Data Reviewed
Laboratory Data:
Laboratory Results
08/20/24 02:22
08/20/24 02:22
Laboratory Results
PT 13.9 Sec (11.4-14.6) 08/19/24 04:47
INR 1.04 08/19/24 04:47
APTT 33.2 Sec (23.4-35.0) 08/17/24 17:32
Phosphorus Cancelled 08/16/24 14:54
Magnesium 2.2 mg/dl (1.6-2.3) 08/20/24 02:22
Total Bilirubin 0.9 mg/dl (0.2-1.3) 08/20/24 02:22
AST 21 U/L (17-59) 08/20/24 02:22
ALT 17 U/L (0-50) 08/20/24 02:22
Alkaline Phosphatase 60 U/L (38-126) 08/20/24 02:22
Lipase 182 U/L (23-300) 08/17/24 03:24
Vital Signs and I&O:
Vital Signs
Temp Pulse Resp BP Pulse Ox
98.4 F 75 18 133/65 94
08/20/24 11:19 08/20/24 12:07 08/20/24 11:19 08/20/24 12:07 08/20/24 11:19
I&O
08/19/24 08/20/24 08/21/24
06:59 06:59 06:59
Intake Total 1480 / 1480
Output Total 1849 / 1849 2375 / 2375 675 / 675
Balance -1850 / -1850 -895 / -895 -675 / -675
Physical Exam
Physical Exam
GI: Non Distended and Non Tender
--- NOTE | 2024-08-20 14:55 | CM ---
spoke topt in room, he presently resides at [facility] and has a roomate who splits the cost. he is not happy with the woman whoshares the room with im but does not want to pay alone. he said he can go back there but doesn't want to, however he
has no other option at this time. he said he is safe there but his roomate is sloppy and smokes/drinks outside. he said he will try to look for somewhere else to live. he reached out to his son (has not spoken to in 5 yrs) to come pick him up and
take him to the pharmacy and home. we discussed getting a pharm that delivers as well. he asked me to call [facility] in [place] for a few nights stay, however they no longer provide the service. pt is willling to go back to his motel
room.
--- NOTE | 2024-08-20 17:35 | PTCARENOTE ---
Pt OOB in his room and walking in halls with encouragement, seen by PT and OT. Pt has denied any chest burning or abdominal discomfort, eating all meals and had a BM today. Telemetry shows sinus rhythm. Pt seen by case managementDarrius pass
obtained for pt to travel . Plan for discharge on 08/21.
[2024-08-20] MEDS: CRESTOR 10 MG PO (17:51)
[2024-08-20] MEDS: DILAUDID 0.5 MG IV (20:34)
[2024-08-20] MEDS: BENADRYL 25 MG PO (22:36)
--- NOTE | 2024-08-20 23:14 | PTCARENOTE ---
Received patient at change of shift. SR on the monitor, HR in the 60s. Patient complains of 6/10 abdominal pain, PRN pain medication administered as per order, see MAY. Call baldwin within reach.
[2024-08-21 03:29] VITALS: BP 152/75
[2024-08-21 03:41] VITALS: BMI 34.2
[2024-08-21 04:11] LABS: Hematocrit 36.2 % (39.0-52.0); Hemoglobin 12.3 g/dL (13.0-18.0); Mean Corpuscular Hgb 30.8 pg (27.0-31.0); Mean Corpuscular Volume 90.5 fL (80.0-94.0); Mean Platelet Volume 11.6 fL (7.4-10.4); Platelet Count 152 10^3/uL (130-400); Red Cell Dist. Width 12.9 % (11.5-14.5)
[2024-08-21 04:36] LABS: ALT (SGPT) 17 U/L (0-50); AST (SGOT) 21 U/L (17-59); Albumin 3.4 g/dl (3.5-5.0); Alkaline Phosphatase 64 U/L (38-126); Blood Urea Nitrogen 11 mg/dl (9-20); Calcium 8.9 mg/dl (8.4-10.2); Carbon Dioxide 25 mmol/L (22-30); Chloride 107 mmol/L (98-107); Estimated Creatinine Clearance > 125 ml/min; Glucose 133 mg/dl (70-99); Magnesium 2.2 mg/dl (1.6-2.3); Potassium 4.5 mmol/L (3.5-5.1); Sodium 138 mmol/L (135-145); Total Bilirubin 0.8 mg/dl (0.2-1.3); Total Protein 6.2 g/dl (6.3-8.2); eGFR > 60.00
[2024-08-21 07:29] VITALS: BP 152/85
[2024-08-21] MEDS: SYMBICORT 160/4.5 MCG INHALER 2 PUFF INH (07:43)
--- NOTE | 2024-08-21 08:04 | W.PN.HOSP.TC ---
Today's Communication/Plan
-
;/
Assessment / Plan
Assessment / Plan
Assessment/plan
#NSTEMI
#S/p [facility] with cardiac catheterization-coronary arteriospasm
-Presented with typical chest pain with elevated troponin (0.478) and lateral ST depression
-Cardiac catheterization showed stable, non-occlusive luminal irregularities
-resumed on Home diltiazem, Started on Isosorbide mononitrate
-Continue home aspirin, statin
-No indication for heparin
-Echocardiogram 08/17- Normal biventricular size and systolic function without regional wall motion abnormality. Moderate concentric left ventricular hypertrophy. Diastolic function indeterminate. Moderate aortic stenosis, mean gradient 26 mmHg. MURIEL
1.7 cmsq. No significant change since the prior study of 03/13/2024 when the mean gradient across the AoV was 27 mmH and the estimated AoV area was 1.4 cmsq.
#Pancreatic head mass with liver metastases
-States he has been losing a lot of weight unintentionally recently, abdomen symptoms with large meals
-Oncology following.
-MRI abdomen with and without contrast-Pancreatic head neoplasm measures up to 3.5 cm. Associated mild dilatation of the main pancreatic duct. Intact surrounding vasculature. Numerous scattered hepatic metastases throughout both hepatic lobes.
Metastatic locoregional lymphadenopathy. A 1.0 cm pancreatic body cystic lesion without suspicious features likely represents a pseudocyst or side branch intraductal papillary mucinous neoplasm.
-IR initially consulted to biopsy liver lesion, now cancelled as we have biopsy of pancreatic mass.
-GI following-s/p EUS with fine needle biopsy of pancreatic mass at [facility] 08/19. Awaiting pathology results.
-Elevated CEA 25.3, CA 19-9 2884 levels.
#Paroxysmal atrial fibrillation
-Currently normal sinus rhythm
-Rate controlled with diltiazem
-Per cardiology note, declined AC
#Chronic HFpEF
#CAD s/p NSTEMI
-Stable, euvolemic on exam
-Home regimen includes aspirin, Lasix, losartan, Crestor, diltiazem
-Consider SGLT2i
-Monitor I's/O's and weights
-Echocardiogram as above
#NERI on presentation
-Likely pre-Renal etiology.
-Now resolved
#Left Shoulder pain
-Likely musculoskeletal in nature.
-Continue pain control
-PT/OT
#BEA
#Restrictive lung disease
-Unclear etiology for ILD, no known ILD history
-Home meds include albuterol sulfate as needed
-Currently stable on RA, monitor respiratory status
DVT prophylaxis; SCDs
CODE STATUS: Full code
Anticipated Discharge: Today
Subjective/Interval History
-
seen and examined at bedside. Medically stable for discharge. No acute complaints.
Objective Data
-
Labs:
Laboratory Results
08/21/24
03:35
WBC 9.0
Hgb 12.3 L
Hct 36.2 L
Plt Count 152
Sodium 138
Potassium 4.5
Chloride 107
Carbon Dioxide 25
BUN 11
Creatinine 0.7
Glucose 133 H
Calcium 8.9
Total Bilirubin 0.8
AST 21
ALT 17
Alkaline Phosphatase 64
Vital Signs:
Vital Signs
Temp Pulse Resp BP Pulse Ox
97.9 F 72 16 152/85 95
08/21/24 07:28 08/21/24 07:44 08/21/24 07:44 08/21/24 07:29 08/21/24 07:44
I&O
08/20/24 08/21/24 08/22/24
06:59 06:59 06:59
Intake Total 1480 / 1480 800 / 800
Output Total 2375 / 2375 2475 / 2475
Balance -895 / -895 -1675 / -1675
Physical Exam
-
General: No Apparent Distress and Comfortable
Respiratory: Clear to Auscultation; Negative Wheezes, Rales or Rhonchi
Cardiac: Regular Rhythm, S1/S2 and Murmur
GI: Soft, Nondistended, Normal Bowel Sounds and Tender (Generalized abdominal tenderness)
Musculoskeletal: No Edema
Neuro: Awake, Alert, Oriented and AO x 3
Psych: Calm
[2024-08-21] MEDS: CARDIZEM CD 120 MG PO (08:50)
[2024-08-21] MEDS: MUCINEX 600 MG PO (08:50)
[2024-08-21] MEDS: IMDUR (EXTENDED RELEASE) 30 MG PO (08:50)
[2024-08-21] MEDS: ASPIR LOW (ENTERIC COATED) 81 MG PO (08:50)
[2024-08-21] MEDS: MIRALAX 17 GRAMS PO (08:50)
[2024-08-21] MEDS: SINGULAIR PO (08:51)
[2024-08-21] MEDS: HYDROCORTISONE 1% CREAM 1 APPLIC TOPICAL (08:51)
[2024-08-21 10:41] VITALS: BP 119/66
--- NOTE | 2024-08-21 11:22 | CM ---
Reviewed chart. Met with Mr. Duval to review discharge plans. We did the [facility] Application for transportation to doctors appointment Faxed application to [facility] Office. He also received food care packages to go home with him. He is planning on
returning to his room at the [facility]. He has been ambulating independently in his room. Medical work-up in progress. The discharge plan is to return back to his mot room when medically stable.
[2024-08-21 11:25] VITALS: BP 121/74
[2024-08-21 11:38] VITALS: BP 133/65
[2024-08-21 11:45] VITALS: BP 121/74; BP 133/65; PULSE 70; O2SAT 94
--- NOTE | 2024-08-21 12:35 | VATNOTE ---
Left Arm Basilic Midline Catheter removed per unit request. Pt. for discharge. TCL 16cm. No bleeding noted. Gauze dressing applied to site.
--- NOTE | 2024-08-21 14:20 | W.DCSUMMARY ---
Discharge Summary
Discharge Data
Date of Admission: 08/16/24
Date of Discharge: 08/21/24
-
Pending Results: Yes (EUS with fine-needle biopsy of pancreatic mass done at [facility])
Hospital Course
Brief Hospital course; This is a 69-year-old male with past medical history of HFpEF, CAD s/p NSTEMI, BEA/restrictive lung disease, hypertension, hyperlipidemia, Klinefelter syndrome, obesity, medication noncompliance, polysubstance abuse, alcohol
abuse, s/p bilateral knee replacements, s/p splenectomy, s/p left adrenal gland removal who presented to ER 08/16/2024 complaining of chest pain. The patient reported chest pain was with exertion and occurred at rest. In addition he reports
chest pain radiating to the left upper extremity. Upon arrival to the ED was hypotensive at 62/36 mmHg, bradycardic with heart rate near 50/min, tachypneic, though respiratory status stable on room air. Initial labs with WBC 11.4, creatinine 1.5,
BUN 29, glucose 221, T. bili 1.4, troponin 0.478. Initial ECG with sinus bradycardia, ST depressions in the lateral leads that worsened on a serial ECG. He was evaluated with a CT chest, abdomen and pelvis which showed levation of the right
hemidiaphragm with chronic compressive segmental atelectasis, signs of moderate lower lobe bronchitis, chronic granulomatous infection, 4 cm pancreatic head mass suspicious for pancreatic adenocarcinoma, small low-attenuation hepatic lesions
suspicious for metastases, congenital hypoplasia of liver lobes, severe calcified atherosclerotic plaques throughout the intra-abdominal vasculature. He received 324 mg of aspirin, started on IV heparin and wheeled to the Administrative Dietitian. Catheterization
done showed stable, non-occlusive luminal irregularities. Compared to prior catheterization, the arteries appeared smaller. IC nitroglycerin resulted in dilation of the arteries, confirming that symptoms are likely from coronary arteriospasm. He
was started on isosorbide mononitrate 30 mg and his diltiazem dose was decreased to to 240 mg daily. Throughout the course of his hospital stay, he remained stable without acute chest pain complaints. He will be discharged home on Imdur, diltiazem
at the lower dose 120 mg daily, continued on aspirin and maintain on statin.
Pancreatic head mass with suspicion for liver metastasis
Upon presentation, a CT chest, abdomen, pelvis was ordered with results above. Oncology was consulted, GI was consulted. The patient admits he has been losing weight unintentionally recently, also complaining of abdominal symptoms with large
meals. An MRI abdomen with and without contrast was ordered which showed Pancreatic head neoplasm measures up to 3.5 cm. Associated mild dilatation of the main pancreatic duct. Intact surrounding vasculature. Numerous scattered hepatic metastases
throughout both hepatic lobes. Metastatic locoregional lymphadenopathy. A 1.0 cm pancreatic body cystic lesion without suspicious features likely represents a pseudocyst or side branch intraductal papillary mucinous neoplasm. CEA 25.3, CA 19-9
2884. Patient was transferred down and back to [place] for an endoscopic ultrasound. Endoscopic ultrasound with fine-needle biopsy of pancreatic mass was done by Dr. Bebe Mahoney adv endo fellow. Final results and pathology are currently
pending. Patient was provided contact number of the [place] [facility] physician for results. The patient was evaluated by oncology. The patient declined willingness to start any chemotherapy. Information to the oncology group was added to his discharge
packet.
Discharge Plan
-
Patient Disposition: Home (Routine Discharge)
Discharge Diagnosis/Procedures: NSTEMI -coronary arteriospasm
Pancreatic head mass with Liver metastasis
Condition: Fair
Diet: Low Cholesterol
Activity: As tolerated
Driving Restrictions: As prior to admission
Bathing Restrictions: OK to Shower
Activity Restrictions/Additional Instructions:
Dr. Bebe Mahoney advanced endo fellow (contact information [phone]) will call patient with pathology results. Please make sure to answer phone.
Follow up with Oncology(Information provided below)
Stand Alone Forms: DC Instructions- Cath/EP Lab
Referrals:
Abran Mcclure DO [Active, Hematology / Oncology]
Referral Note: call to schedule follow up in 7-10 days
Nando Agustin DO [Family Provider, Family Practice] - in less than 1 week
Jayden Kelly MD [Active, Cardiology] - in two to four weeks
Prescriptions:
New
tramadol 50 mg tablet
50 mg PO Q8H PRN (Reason: Sev pain) Qty: 14 0RF
Rx Instructions:
Take half tablet for moderate pain
isosorbide mononitrate 30 mg Tablet Extended Release 24 Hr
30 mg PO DAILY Qty: 30 0RF
diltiazem HCl 120 mg Capsule,Extended Release 24hr
120 mg PO DAILY Qty: 30 0RF
polyethylene glycol 3350 [Miralax] 17 gram/dose powder
4 g PO DAILY Qty: 119 0RF
Continued
losartan 100 mg Tablet
100 mg PO DAILY
diphenhydramine HCl [Benadryl] 25 mg Capsule
25 mg PO HS
aspirin 81 mg Tablet,Delayed Release (Dr/Ec)
81 mg PO DAILY
montelukast 10 mg Tablet
10 mg PO DAILY
albuterol sulfate 90 mcg/actuation Hfa Aerosol Inhaler
2 puff INHALATION R Q6HPRN PRN (Reason: shortness of breath)
furosemide 40 mg Tablet
40 mg PO BID AT 0800,1600 Qty: 60 0RF
rosuvastatin 10 mg Tablet
10 mg PO QPM Qty: 0 0RF
dextroamphetamine-amphetamine [Adderall] 15 mg Tablet
15 mg PO BID
Discontinued
acetaminophen [Acetaminophen Extra Strength] 500 mg tablet
1,000 mg PO HSPRN PRN (Reason: mild pain)
isosorbide mononitrate 60 mg Tablet Extended Release 24 Hr
60 mg PO DAILY Qty: 30 0RF
diltiazem HCl 240 mg Capsule,Extended Release 24hr
240 mg PO DAILY
diltiazem HCl 360 mg capsule,extended release 24hr
360 mg PO DAILY Qty: 30 0RF
Discharge Orders:
Discharge Patient (As Directed); Ordered 08/21/24
Ordered By: Renetta Romano
Care Plan Goals
Care Plan Goals:
Problem: Readiness for enhanced knowledge related to diagnosis and treatment plan
Goal: Understand your diagnosis and treatment plan needs, including medications if applicable.
Instructions: Know your diagnosis, underlying causes and treatment plan options, including medications if applicable. Consult with your health care team to learn about your diagnosis and treatment plan, including medications if applicable.
Discharge Date and Time
Discharge Date/Time: 08/21/24 14:05
Print Language: NICARAGUAN
--- NOTE | 2024-08-21 15:01 | PTCARENOTE ---
Pt seen by and . Midline IV device removed by IV team. Telemetry removed. Discharge instructions reviewed with Pt regarding medications, activity guidelines, wound care, reporting cares and concerns and follow up appt's.
Reinforced need for pt to answer his cell phone to get test results. Pt states very good understanding. Pt given bag of food to take home with him. Pt escorted out via wheelchair and discharged to his hotel with his son.
== END 2024-08-21 14:05 | disposition home or self-care (01) | DRG 435 ==
LOC: IVU 09:21
PROVIDERS: Internal Medicine; Internal Medicine Cardiovascular Disease; Nurse Practitioner Adult Health; Student in an Organized Health Care Education/Training Program; ADMITTING PHYSICIAN Internal Medicine; ATTENDING PHYSICIAN Hospitalist; CONSULT PHYSICIAN Internal Medicine Gastroenterology; CONSULT PHYSICIAN Internal Medicine Hematology & Oncology; CONSULT PHYSICIAN Student in an Organized Health Care Education/Training Program; EMERGENCY PHYSICIAN Emergency Medicine; FAMILY PHYSICIAN Family Medicine
PROC: B2151ZZ Fluoroscopy of Left Heart using Low Osmolar Contrast (ICD-10-PCS; 2024-08-16)
PROC: 4A023N7 Measurement of Cardiac Sampling and Pressure, Left Heart, Percutaneous Approach (ICD-10-PCS; 2024-08-16)
PROC: B2111ZZ Fluoroscopy of Multiple Coronary Arteries using Low Osmolar Contrast (ICD-10-PCS; 2024-08-16)
DX: C25.9 Malignant neoplasm of pancreas, unspecified (principal); I21.4 Non-ST elevation (NSTEMI) myocardial infarction; R57.0 Cardiogenic shock; I50.32 Chronic diastolic (congestive) heart failure; I13.0 Hypertensive heart and chronic kidney disease with heart failure and stage 1 through stage 4 chronic kidney disease, or unspecified chronic kidney disease; Z59.00 Homelessness unspecified; C78.7 Secondary malignant neoplasm of liver and intrahepatic bile duct; J84.9 Interstitial pulmonary disease, unspecified; J98.11 Atelectasis; C77.9 Secondary and unspecified malignant neoplasm of lymph node, unspecified; N17.9 Acute kidney failure, unspecified; N18.9 Chronic kidney disease, unspecified; I48.0 Paroxysmal atrial fibrillation; J98.4 Other disorders of lung; J44.89 Other specified chronic obstructive pulmonary disease; I25.111 Atherosclerotic heart disease of native coronary artery with angina pectoris with documented spasm; E66.9 Obesity, unspecified; F10.11 Alcohol abuse, in remission; I35.0 Nonrheumatic aortic (valve) stenosis; E78.00 Pure hypercholesterolemia, unspecified; R73.03 Prediabetes; R59.0 Localized enlarged lymph nodes; D71 Functional disorders of polymorphonuclear neutrophils; M47.816 Spondylosis without myelopathy or radiculopathy, lumbar region; G47.33 Obstructive sleep apnea (adult) (pediatric); F11.11 Opioid abuse, in remission; K59.00 Constipation, unspecified; D72.829 Elevated white blood cell count, unspecified; Z96.653 Presence of artificial knee joint, bilateral; D69.6 Thrombocytopenia, unspecified; M25.512 Pain in left shoulder; Z68.34 Body mass index [BMI] 34.0-34.9, adult; Q98.4 Klinefelter syndrome, unspecified; Z90.81 Acquired absence of spleen; Z91.148 Patient's other noncompliance with medication regimen for other reason; Z91.041 Radiographic dye allergy status; Z88.8 Allergy status to other drugs, medicaments and biological substances; Z79.82 Long term (current) use of aspirin; Z87.891 Personal history of nicotine dependence
CPT/HCPCS: 71045; 71275; 74174; 74183; 80053; 80061; 82248; 82378; 82962; 83605; 83690; 83735; 83880; 84484; 85025; 85027; 85610; 85730; 86301; 86803; 87040; 87070; 93005; 93306; 93458; 93970; 94640; 96361; 96374; 97116; 97162; 97166; 97530; 99152; 99291; A9575; C1760; C1894; Q9967

== ENCOUNTER → 2024-08-31 11:49 | Outpatient (REF) | payer MEDICARE, SELFPAY | LOC: DHSLP 11:49 | PROVIDERS: ATTENDING PHYSICIAN Internal Medicine; FAMILY PHYSICIAN Family Medicine | DX: G47.00 Insomnia, unspecified (principal); G47.8 Other sleep disorders; R06.83 Snoring | CPT/HCPCS: 95810 ==

== ENCOUNTER → 2024-09-08 13:05 | Outpatient (REF) | payer MEDICARE, SELFPAY ==
[2024-09-08] VITALS (7 sets, daily range): BP systolic 63–128; BP diastolic 66–92
[2024-09-08] MEDS: ANCEF 10 IV (15:02)
== END ==
LOC: RADI 13:05
PROVIDERS: ATTENDING PHYSICIAN Internal Medicine Hematology & Oncology; FAMILY PHYSICIAN Family Medicine
DX: C25.1 Malignant neoplasm of body of pancreas (principal)
CPT/HCPCS: 36561; 76937; 77001; 99152; 99153; C1788

== ENCOUNTER 2024-09-17 09:15 | Outpatient (RCR) | payer MEDICARE, SELFPAY ==
[2024-09-17 09:39] LABS: Hematocrit 36.9 % (39.0-52.0); Hemoglobin 12.5 g/dL (13.0-18.0); Mean Corp Hgb Conc. 33.9 g/dL (33.0-37.0); Mean Corpuscular Volume 90.2 fL (80.0-94.0); Platelet Count 152 10^3/uL (130-400); Red Cell Dist. Width 13.4 % (11.5-14.5)
[2024-09-17 12:07] LABS: ALT (SGPT) 17 U/L (0-50); AST (SGOT) 30 U/L (17-59); Albumin 3.8 g/dl (3.5-5.0); Alkaline Phosphatase 85 U/L (38-126); Blood Urea Nitrogen 33 mg/dl (9-20); Calcium 9.1 mg/dl (8.4-10.2); Carbon Dioxide 29 mmol/L (22-30); Chloride 97 mmol/L (98-107); Glucose 143 mg/dl (70-99); Potassium 3.6 mmol/L (3.5-5.1); Sodium 134 mmol/L (135-145); Total Protein 6.7 g/dl (6.3-8.2); eGFR 23.39
== END 2024-10-01 23:59 | disposition home or self-care (01) ==
LOC: OID 09:15
PROVIDERS: ATTENDING PHYSICIAN Internal Medicine Hematology & Oncology
DX: C25.1 Malignant neoplasm of body of pancreas (principal); C78.7 Secondary malignant neoplasm of liver and intrahepatic bile duct
CPT/HCPCS: 36415; 80053; 85025